=== PATIENT | female | born 1975 | race Caucasian/White ===

== ENCOUNTER 2020-03-06 10:20 | Outpatient (REF) | payer BC, SELFPAY ==
[2020-03-06 14:45] LABS: Alanine Aminotransferase 12 U/L (0-31); Anion Gap 15 (12-20); Aspartate Amino Transferase 19 U/L (5-31); Blood Urea Nitrogen 18 mg/dL (9-16); Carbon Dioxide 24 mmol/L (22-29); Chloride 106 mmol/L (96-108); Estimated Glomerular Filt Rate > 60; Sodium 140 mmol/L (135-145)
== END 2020-03-06 10:21 | disposition home or self-care (01) ==
LOC: HO.10HDL 10:20
PROVIDERS: Visit Provider Family Medicine
DX: I10 Essential (primary) hypertension (principal); R79.89 Other specified abnormal findings of blood chemistry; L72.0 Epidermal cyst
CPT/HCPCS: 11422; 36415; 80051; 82565; 84450; 84460; 84520

== ENCOUNTER 2020-03-07 14:26 | Outpatient (REF) | payer BC, SELFPAY | END 2020-03-07 14:27 | disposition home or self-care (01) | LOC: HO.LAB 14:26 | PROVIDERS: Visit Provider Surgery | DX: L72.0 Epidermal cyst (principal) | CPT/HCPCS: 88304 ==

== ENCOUNTER → 2020-03-19 13:46 | Outpatient (BNVA) | payer BC, SELFPAY | PROVIDERS: PCP Family Medicine; Visit Provider Surgery ==

== ENCOUNTER 2020-08-01 07:39 | Outpatient (REF) | payer BC, SELFPAY ==
[2020-08-01 12:09] LABS: Free T4 (Free Thyroxine) 0.94 ng/dL (0.71-1.85); Thyroid Stimulating Hormone 23.77 uIU/mL (0.32-4.0)
== END 2020-08-01 07:40 | disposition home or self-care (01) ==
LOC: HO.HMGCLDS 07:39
PROVIDERS: PCP Family Medicine; Visit Provider Family Medicine
DX: E03.9 Hypothyroidism, unspecified (principal)
CPT/HCPCS: 36415; 84439; 84443

== ENCOUNTER 2020-10-25 06:46 | Emergency (ER) | payer BC, SELFPAY ==
[2020-10-25 07:29] VITALS: PULSE 80; RESP 18; TEMP 36.6; O2SAT 99; BMI 35.8
[2020-10-25 08:00] LABS: COVID-19 Test Negative (Negative)
--- NOTE | 2020-10-25 08:04 | ED.SKABFB ---
HPI - Skin/Abscess/Foreign Bdy General Chief complaint: Skin/Abscess/Foreign Body Stated complaint: Rash/Chest discomfort/Wants covid test Time Seen by Provider: 10/25/20 07:54 Source: patient Mode of arrival: ambulatory Limitations: no limitations History of Present Illness HPI narrative: Patient comes to the emergency room complaining of a rash in her upper back, few dots of the rash in the left side of the breast, and painful lump in her armpit. Patient states the painful rash has been there for 2 days. Patient states that before the rash appeared, she had a strange sensation in her skin, felt kind of numb and itchy. Patient denies having fever or chills Related Data Home Medications Medication Instructions Recorded Confirmed dicyclomine 10 mg capsule [id number] mg PO QID PRN 03/06/20 loperamide 2 mg capsule (Imodium 2 mg PO QID PRN 03/06/20 A-D) omeprazole 40 mg capsule,delayed 40 mg PO BID 03/06/20 release sertraline 100 mg tablet 100 mg PO DAILY 03/06/20 zolpidem 10 mg tablet 10 mg PO BEDTIME PRN 03/06/20 levothyroxine 137 mcg tablet 112 mcg PO tab 03/19/20 03/19/20 Previous Rx's Medication Instructions Recorded ondansetron 4 mg disintegrating 4 mg PO Q6H PRN #20 tab 09/01/20 tablet gabapentin 100 mg capsule 100 mg PO TID PRN #10 cap 10/25/20 valacyclovir 500 mg tablet 500 mg PO TID 7 Days #21 tab 10/25/20 Allergies Allergy/AdvReac Type Severity Reaction Status Date / Time oxycodone [From PERCOCET] Allergy Unknown ITCHING Verified 03/19/20 13:53 Review of Systems Review of Systems: Constitutional : No Weight loss, No Fever, No Chills, No Night Sweats, No Fatigue, No Malaise ENT/Mouth : No Hearing loss, No Ear Pain, No Nasal Congestion, No Sinus Pain, No Hoarseness, No sore throat, No Rhinorrhea, No Swallowing Difficulty Eyes: No Eye Pain, No Swelling, No Redness, No Foreign Body, No Discharge, No Vision Changes Cardiovascular : No Chest Pain, No SOB, No Dyspnea on Exertion, No Orthopnea, No Edema, No Palpitations Respiratory : No Cough, No Sputum, No Wheezing, No Smoke Exposure, No Dyspnea Gastrointestinal : No Nausea, No Vomiting, No Diarrhea, No Constipation, No abdominal Pain, No Hematochezia, No Melena Genitourinary : no irregular bleeding, No Dysuria, No Urinary Frequency, No Hematuria, No Urinary Incontinence, No Urgency, No Flank Pain, No Urinary Flow Changes, No Hesitancy Musculoskeletal : No joint pain, No Myalgias, No Joint Swelling Skin : Painful rash in upper back left side and a few dots on the breast on the left side Neuro : No Weakness, No Numbness, No Paresthesias, No Loss of Consciousness, No Dizziness, No Headache Psych : No Anxiety/Panic, No Depression, No SI/HI/AH/VH, No Social Issues, Heme/Lymph: No Bruising, No Bleeding, painful lymphadenopathy in left axilla Endocrine : No Polyuria, No Polydipsia, No Temperature Intolerance PMFSH Past Medical History Medical History Epidermal cyst Surgical History Gastric bypass status for obesity History of cholecystectomy History of hysterectomy Family History Family History Paternal Grandfather History of colon cancer Maternal Grandmother History of breast cancer Family/Other History of breast cancer Social History Social History Alcohol intake: never Advance Directives: No Advance Directives Information Provided: No Physical Exam Vital Signs: Vital Signs: Last Vital Signs Temp 98 F 10/25/20 07:29 Pulse 80 10/25/20 07:29 Resp 18 10/25/20 07:29 Pulse Ox 99 10/25/20 07:29 Body Mass Index 35.8 Const: Other: Appearance: Alert. Oriented X3. No acute distress. Eyes: Pupils equal, round and reactive to light. ENT: Pharynx normal. Neck: Normal inspection. Neck supple. No lymph nodes noted. No crepitus CVS: Normal heart rate and rhythm. Pulses normal. Normal S1 and S2 Respiratory: No respiratory distress. Breath sounds normal. No Wheezing. No rales Abdomen: Soft and nontender. No rigidity. No distention. good BS x4 Skin: Skin warm and dry. Patient has an erythematous, borderline fascicular rash in clusters and the upper back on the left side and some small vesicles over the left breast Extremities: No lower extremity edema. No lower extremity edema. No Lacerations. No Rash Neuro: Oriented X 3. No motor deficit. No sensory deficit. Moving all extermities. No slurred speech. Course Course Course Narrative: COVID test is pending. The Patient has left-sided axillary lymphadenopathy, is likely that the patient has a viral exanthem, erythema multiforme versus shingles. Given the patient's history of how the rash progressed, she will be treated for shingles. MDM - Skin/Abscess/Foreign Bdy Lab Data Labs: Lab Results 10/25/20 Range/Units 07:35 COVID-19 ([facility]) Negative (Negative) COVID-19 Clin Com See Note Discharge Plan Discharge Clinical Impression: Shingles Patient Disposition: Home, Self-Care Instructions: Shingles (ED) Additional Instructions: Please follow-up with your primary care physician tomorrow. If you have any worsening or new symptoms, please return to the emergency room or call 911 Prescriptions: New valacyclovir 500 mg tablet 500 mg PO TID 7 Days Qty: 21 RF: 0 gabapentin 100 mg capsule 100 mg PO TID PRN (Reason: pain) Qty: 10 RF: 0 No Action ondansetron 4 mg tablet,disintegrating 4 mg PO Q6H PRN (Reason: nausea and vomiting) Qty: 20 RF: 0 loperamide [Imodium A-D] 2 mg capsule 2 mg PO QID PRNRF: 0 zolpidem 10 mg tablet 10 mg PO BEDTIME PRNRF: 0 omeprazole 40 mg capsule,delayed release(DR/EC) 40 mg PO BID RF: 0 sertraline 100 mg tablet 100 mg PO DAILY RF: 0 dicyclomine 10 mg capsule [id number] mg PO QID PRN (Reason: cramps) RF: 0 levothyroxine 137 mcg tablet 112 mcg PO RF: 0 Stand Alone Forms: Work/School Release
== END 2020-10-25 08:25 | disposition home or self-care (01) ==
PROVIDERS: Emergency Provider Emergency Medicine; PCP Family Medicine
DX: B02.9 Zoster without complications (principal); Z20.822 Contact with and (suspected) exposure to COVID-19
CPT/HCPCS: 36415; 87635; 99283

== ENCOUNTER 2021-02-19 17:08 | Emergency (ER) | payer BC, SELFPAY ==
[2021-02-19 17:18] VITALS: BP 144/82; PULSE 98; RESP 18; TEMP 36.5; O2SAT 96; BMI 37.1
[2021-02-19 18:01] LABS: Appearance Urine CLEAR; Color Urine YELLOW; Glucose Urine UA NEG (NEG); Leukocyte Esterase Urine NEG (NEG); Nitrite Urine NEG (NEG); PH 5.5 (5.0-8.0); Specific Gravity - Urine >= 1.030 (1.005-1.025); Urine Blood NEG (NEG); Urine Ketones NEG (NEG); Urine Protein NEG (NEG-TRACE)
[2021-02-19 18:05] LABS: UPreg QC Valid YES; Urine Pregnancy NEGATIVE (NEGATIVE)
[2021-02-19 18:09] LABS: Bacteria Urine TRACE /LPF; Mucus Urine 1+ /LPF; RBC Urine 0-2 /HPF (0); Squamous Epithelial Cell Urine TRACE /LPF; WBC Urine 0-2 /HPF (0-4)
[2021-02-19 18:10] LABS: Calcium Oxalate Crystals Urine TRACE /LPF
== END 2021-02-19 23:48 | disposition left against medical advice (07) ==
PROVIDERS: Emergency Provider Emergency Medicine; PCP Family Medicine
DX: R10.9 Unspecified abdominal pain (principal); R11.2 Nausea with vomiting, unspecified
CPT/HCPCS: 81001; 81025; 99283

== ENCOUNTER 2021-05-13 08:30 | Outpatient (REF) | payer BC, SELFPAY ==
[2021-05-13 11:33] LABS: Appearance Urine HAZY; Color Urine YELLOW; Glucose Urine UA NEG (NEG); Leukocyte Esterase Urine NEG (NEG); Nitrite Urine NEG (NEG); PH 5.5 (5.0-8.0); Specific Gravity - Urine >= 1.030 (1.005-1.025); Urine Blood TRACE (NEG); Urine Ketones 5 MG/DL (NEG); Urine Protein NEG (NEG-TRACE)
[2021-05-13 11:51] LABS: Amorphous Sediment Urine 2+ /LPF; Mucus Urine 4+ /LPF; Squamous Epithelial Cell Urine TRACE /LPF; WBC Urine 0 /HPF (0-4)
[2021-05-13 11:58] LABS: Hematocrit 41.7 % (37.0-47.0); Hemoglobin 13.1 g/dl (12.0-16.0); Mean Corpuscular HGB Conc 31.4 g/dl (31.0-35.0); Mean Corpuscular Hemoglobin 29.8 pg (27.0-33.0); Mean Corpuscular Volume 94.8 fL (80.0-98.0); Mean Platelet Volume 9.2 fL (9.4-12.3); Platelet Count 368 X10*3/uL (160-400); Red Cell Distribution Width 13.2 % (11.0-16.0)
[2021-05-13 12:54] LABS: TSH reflex Free T4 1.26 uIU/mL (0.32-4.0)
[2021-05-13 13:22] LABS: Alanine Aminotransferase 11 U/L (0-31); Albumin Level 4.5 g/dL (3.5-5.0); Alkaline Phosphatase 70 U/L (39-117); Anion Gap 14 (12-20); Aspartate Amino Transferase 11 U/L (5-31); Bilirubin Total 0.2 mg/dL (0.0-1.0); Blood Urea Nitrogen 15 mg/dL (9-16); Calcium 9.7 mg/dL (8.4-10.2); Carbon Dioxide 26 mmol/L (22-29); Chloride 107 mmol/L (96-108); Cholesterol 181 mg/dL; Estimated Glomerular Filt Rate > 60; Glucose Fasting 91 mg/dL (60-99); HDL Cholesterol 44 mg/dL; LDL Cholesterol Calculated 111 mg/dl; Potassium 4.8 mmol/L (3.3-5.1); Sodium 142 mmol/L (135-145); Total Protein 7.6 g/dL (6.5-8.0); Triglycerides 131 mg/dL
== END 2021-05-13 08:31 | disposition home or self-care (01) ==
LOC: HO.HMGCLDS 08:30
PROVIDERS: PCP Internal Medicine; Visit Provider Internal Medicine
DX: Z00.00 Encounter for general adult medical examination without abnormal findings (principal); E03.9 Hypothyroidism, unspecified
CPT/HCPCS: 36415; 80053; 80061; 81001; 84443; 85027

== ENCOUNTER 2021-11-05 06:13 | Day surgery (SDC) | payer BC, SELFPAY ==
[2021-11-02 10:02] VITALS: BMI 37.8
[2021-11-05 06:24] VITALS: BP 130/76; PULSE 67; RESP 16; TEMP 36.2; O2SAT 98; BMI 37.8
[2021-11-05 06:25] VITALS: BMI 37.8
[2021-11-05] MEDS: Lactated Ringers 1,000 ML 50 ML IVCONT (07:02)
--- NOTE | 2021-11-05 07:21 | P.CONAN_ITS ---
HPI - Anesthesia Eval Consult details Narrative: 46 F for EGD PMFSH Active Problems Active Problems: All Active Problems (Updated 09/25/21 @ 10:59 by Corry Perez MD) Insomnia (Acute) Hypothyroid (Acute) Annual physical exam (Acute) Hx of mammogram (Acute) Normal pelvic exam (Acute) DJD (degenerative joint disease), lumbar (Acute) GERD (gastroesophageal reflux disease) (Acute) Overweight (Acute) Hx of colonoscopy (Acute) Abdominal pain (Acute) Epidermal cyst (Acute) Past Medical History Medical History Annual physical exam Anxiety Depression DJD (degenerative joint disease), lumbar Epidermal cyst GERD (gastroesophageal reflux disease) Hx of mammogram Hypothyroid IBS (irritable bowel syndrome) Insomnia Normal pelvic exam Overweight Functional capacity: independent ambulation Family History Family History (Updated 09/25/21 @ 10:01 by Jimena Velazquez [facility]) Paternal Grandfather History of colon cancer Maternal Grandmother History of breast cancer Mental health disorder Family/Other History of breast cancer Sister Substance use disorder Mental health disorder Maternal Aunt Substance use disorder Maternal Uncle Substance use disorder Paternal Uncle Substance use disorder Maternal Uncle Substance use disorder Mother Mental health disorder Brother Mental health disorder Family history of problems with anesthesia: No Surgical History Surgical History Gastric bypass status for obesity History of cholecystectomy History of hysterectomy Hx of colonoscopy History of Problems with Anesthesia: No Social History Social History (Updated 05/13/21 @ 08:44 by Corry Perez MD) Housing: Apartment Housing Other:: , 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, 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 [employer] Alcohol intake: never Patient Tobacco Use Status: Never used Tobacco e-Cigarette/Vaping Use: Never Used Use of substances other than those prescribed or required for medical reasons: No Are you DNR?: No Advance Directives: No Advance Directives Information Provided: Yes Current occupational status: employed Cognitive needs: No Hearing needs: No Vision needs: No Meds Allergies Allergy/AdvReac Type Severity Reaction Status Date / Time oxycodone [From PERCOCET] Allergy Unknown ITCHING Verified 09/25/21 09:58 Active Medications: Current Medications Lactated Ringer's (Lr) 1,000 mls @ 50 mls/hr IVCONT .Q20H JOHN Last Admin: 11/05/21 07:02 Dose: 50 mls/hr Home Medications Medication Instructions Recorded Confirmed Last Taken Type loperamide 2 mg capsule (Imodium 2 mg PO QID PRN 03/06/20 09/25/21 Unknown History A-D) omeprazole 40 mg capsule,delayed 40 mg PO BID 03/06/20 09/25/21 Unknown History release dicyclomine 10 mg capsule 20 mg PO QID PRN cramps 05/13/21 09/25/21 Unknown History levothyroxine 125 mcg capsule 125 mcg PO DAILY 05/13/21 09/25/21 11/05/21 History Exam Exam Date and Time: November 05, 2021720 Height,Weight and Vital Signs: Height 5 ft 2 in Weight 93.894 kg Last Vital Signs Temp 97.2 F 11/05/21 06:24 Pulse 67 11/05/21 06:24 Resp 16 11/05/21 06:24 BP 130/76 11/05/21 06:24 Pulse Ox 98 11/05/21 06:24 O2 Del Method 11/05/21 06:24 Airway Mallampati Class: II TM Dist: >3cm Neck ROM: Full Loose/Missing/Broken Teeth: Yes (Fillings ) Heart: S1,S2 Lungs: b/l breath sounds Assessment and Plan Assessment Anesthesia Assessment: Anesthesia Plan Discussed and Chart Reviewed Final Anesthetic Review Family History of Problems with Anesthesia: No History of Problems with Anesthesia: No NPO: Yes ASA Class: II Final Preanesthetic Review: Meds/Allgs Chart Reviewed, Consent Obtained/Reviewed and Anes Risks/Benef Reviewed Patient Risk: Intermediate Procedure Risk: Intermediate Anesthetic Plan Anesthetic Plan: MAC: Disposition: Standard PACU
[2021-11-05 07:53] VITALS: BP 112/64; PULSE 68; RESP 16; TEMP 37; O2SAT 98
--- NOTE | 2021-11-05 08:00 | PM.OP ---
Brief Operative Note Date of Service: 11/05/21 Pre-op diagnosis: GERD Post-op diagnosis: other (Same, Minimal hiatal hernia) Procedure: EGD with biopsies Surgeon: Aravind Schwartz Anesthesia: MAC Was an Environmental Monitoring Technician used for this Procedure?: No Estimated blood loss (mL): 2.0 Pathology: other (A. EG Junction at 35cm) Condition: stable Disposition: PACU
[2021-11-05 08:08] VITALS: BP 112/64; PULSE 68; RESP 16; TEMP 37; O2SAT 97
--- NOTE | 2021-11-05 08:59 | OP_ITS ---
SURGEON: Aravind Schwartz MD INDICATIONS: The patient presents for evaluation of chronic gastroesophageal reflux. Full consent has been obtained from her for this, including risks of bleeding and perforation. PREOPERATIVE DIAGNOSIS: Gastroesophageal reflux. POSTOPERATIVE DIAGNOSIS: PROCEDURE PERFORMED: ESTIMATED BLOOD LOSS: COMPLICATIONS: ANESTHESIA: Monitored anesthesia care. ASSISTANTS: SPECIMENS: PROCEDURE: Esophagogastroduodenoscopy with biopsies. POSTOPERATIVE DIAGNOSES: Gastroesophageal reflux, minimal hiatal hernia, minimal changes of reflux. DESCRIPTION OF PROCEDURE: The patient was placed in the left lateral decubitus position. The Olympus video gastroscope was passed in the posterior oropharynx and upper esophagus under direct vision. The scope was passed slowly to the distal esophagus. The gastroesophageal junction appeared at 34 cm. There was some very minimal irregularity, but no evidence of esophagitis nor any definitive evidence of Shah mucosa. There did appear to be a minimal hiatal hernia as well. The scope easily entered into the stomach. The scope was advanced to the pylorus and the duodenum was cannulated to the descending portion. The duodenum including the bulb appeared normal without mass or ulceration. The scope was withdrawn back to the stomach. The gastric antrum and body appeared normal. However, there was evidence of a scar along the greater curvature consistent with her previous sleeve gastrectomy. The scope was then withdrawn back into the esophagus. Biopsies were obtained at the EG junction at 34 cm. Proximal to this, the esophageal mucosa appeared normal. The scope was withdrawn from the patient. She tolerated the procedure well and was returned to the recovery area in stable condition. IMPRESSION: Minimal hiatal hernia and changes of gastroesophageal reflux. PLAN: The results of the biopsies will be checked. She does report that she has been using the omeprazole 40 mg twice a day on a regular basis with some relief of reflux. However, she still experiences some symptoms. She will continue this regimen. She will follow up with Dr. Calvo to discuss possible gastric bypass surgery. She will be seen in followup by myself as well. This has been discussed with her . MD HATTIE Celis/ALLAN / [id number] MTDD
== END 2021-11-05 08:30 | disposition home or self-care (01) ==
PROVIDERS: PCP Internal Medicine; Visit Provider Internal Medicine
PROC: 0DJ08ZZ Inspection of Upper Intestinal Tract, Via Natural or Artificial Opening Endoscopic (ICD-10-PCS; CPT 43235; principal; 2021-11-05 07:30)
DX: K21.9 Gastro-esophageal reflux disease without esophagitis (principal); R12 Heartburn; K44.9 Diaphragmatic hernia without obstruction or gangrene; K58.0 Irritable bowel syndrome with diarrhea; Z79.899 Other long term (current) drug therapy; Z88.8 Allergy status to other drugs, medicaments and biological substances; Z98.84 Bariatric surgery status
CPT/HCPCS: 43239; 88305

== ENCOUNTER 2021-12-24 07:09 | Day surgery (SDC) | payer BC, SELFPAY ==
--- NOTE | 2021-12-23 08:44 | P.CONAN_ITS ---
Documented by User: Sally Phillips NP 12/23/21 08:45 HPI - Anesthesia Eval Consult details Narrative: 46yo F for Upper Endoscopy and Colonoscopy s/p EGD with MAC 10/2021 [facility] Active Problems Active Problems: All Active Problems (Updated 12/18/21 @ 10:14 by Shavon Medeiros RN) Abdominal pain (Acute) Annual physical exam (Acute) Insomnia (Acute) Hypothyroid (Acute) Hx of mammogram (Acute) Normal pelvic exam (Acute) DJD (degenerative joint disease), lumbar (Acute) GERD (gastroesophageal reflux disease) (Acute) Overweight (Acute) Hx of colonoscopy (Acute) Epidermal cyst (Acute) Past Medical History Medical History Anxiety Depression DJD (degenerative joint disease), lumbar Epidermal cyst GERD (gastroesophageal reflux disease) Heart murmur History of shingles Hx of mammogram Hypothyroid IBS (irritable bowel syndrome) Insomnia Normal pelvic exam Overweight Family History Family History Paternal Grandfather History of colon cancer Maternal Grandmother History of breast cancer Mental health disorder Family/Other History of breast cancer Sister Substance use disorder Mental health disorder Maternal Aunt Substance use disorder Maternal Uncle Substance use disorder Paternal Uncle Substance use disorder Maternal Uncle Substance use disorder Mother Mental health disorder Brother Mental health disorder Family history of problems with anesthesia: No Surgical History Surgical History Gastric bypass status for obesity History of cholecystectomy History of esophagogastroduodenoscopy (EGD) History of hysterectomy Hx of colonoscopy History of Problems with Anesthesia: No Social History Social History Housing: Apartment Housing Other:: , 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, 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 Alcohol intake: never Patient Tobacco Use Status: Never used Tobacco e-Cigarette/Vaping Use: Never Used Use of substances other than those prescribed or required for medical reasons: No Are you DNR?: No Advance Directives: No Advance Directives Information Provided: Yes Current occupational status: employed Cognitive needs: No Hearing needs: No Vision needs: No Meds Allergies Allergy/AdvReac Type Severity Reaction Status Date / Time oxycodone [From PERCOCET] Allergy Unknown ITCHING Verified 12/18/21 10:19 Home Medications Medication Instructions Recorded Confirmed Last Taken Type loperamide 2 mg capsule (Imodium 2 mg PO QID PRN Diarrhea 03/06/20 12/24/21 Unknown History A-D) omeprazole 40 mg capsule,delayed 40 mg PO BID 03/06/20 12/18/21 Unknown History release dicyclomine 10 mg capsule 20 mg PO QID PRN cramps 05/13/21 12/18/21 Unknown History levothyroxine 125 mcg capsule 125 mcg PO DAILY 05/13/21 12/18/21 11/05/21 History Exam Exam Date and Time: December 23, 2021 0844 Assessment and Plan Assessment Anesthesia Assessment: Chart Reviewed Final Anesthetic Review Family History of Problems with Anesthesia: No History of Problems with Anesthesia: No Documented by User: Kristin Watts MD 12/24/21 08:47 HPI - Anesthesia Eval Consult details Narrative: 46yo F for Upper Endoscopy s/p EGD with MAC 10/2021 [facility] Active Problems Active Problems: All Active Problems (Updated 12/18/21 @ 10:14 by Shavon Medeiros RN) Abdominal pain (Acute) Annual physical exam (Acute) Insomnia (Acute) Hypothyroid (Acute) Hx of mammogram (Acute) Normal pelvic exam (Acute) DJD (degenerative joint disease), lumbar (Acute) GERD (gastroesophageal reflux disease) (Acute) Overweight (Acute) BMI 39 Hx of colonoscopy (Acute) Epidermal cyst (Acute) JULIETH- not using CPAP. Unable to tolerate Past Medical History Medical History Anxiety Depression DJD (degenerative joint disease), lumbar Epidermal cyst GERD (gastroesophageal reflux disease) Heart murmur History of shingles Hx of mammogram Hypothyroid IBS (irritable bowel syndrome) Insomnia Normal pelvic exam Overweight Family History Family History Paternal Grandfather History of colon cancer Maternal Grandmother History of breast cancer Mental health disorder Family/Other History of breast cancer Sister Substance use disorder Mental health disorder Maternal Aunt Substance use disorder Maternal Uncle Substance use disorder Paternal Uncle Substance use disorder Maternal Uncle Substance use disorder Mother Mental health disorder Brother Mental health disorder Surgical History Surgical History Gastric bypass status for obesity History of cholecystectomy History of esophagogastroduodenoscopy (EGD) History of hysterectomy Hx of colonoscopy Social History Social History Housing: Apartment Housing 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:: , 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, 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 [place] Alcohol intake: never Patient Tobacco Use Status: Never used Tobacco e-Cigarette/Vaping Use: Never Used Use of substances other than those prescribed or required for medical reasons: No Are you DNR?: No Advance Directives: No Advance Directives Information Provided: Yes Current occupational status: employed Cognitive needs: No Hearing needs: No Vision needs: No Meds Allergies Allergy/AdvReac Type Severity Reaction Status Date / Time oxycodone [From PERCOCET] Allergy Unknown ITCHING Verified 12/18/21 10:19 Home Medications Medication Instructions Recorded Confirmed Last Taken Type loperamide 2 mg capsule (Imodium 2 mg PO QID PRN Diarrhea 03/06/20 12/24/21 Unknown History A-D) omeprazole 40 mg capsule,delayed 40 mg PO BID 03/06/20 12/18/21 Unknown History release dicyclomine 10 mg capsule 20 mg PO QID PRN cramps 05/13/21 12/18/21 Unknown History levothyroxine 125 mcg capsule 125 mcg PO DAILY 05/13/21 12/18/21 11/05/21 History Exam Height,Weight and Vital Signs: Height 5 ft 2 in Weight 96.615 kg Vital Signs Temp Pulse Resp BP Pulse Ox O2 Del Method 12/24/21 07:45 96.9 F 63 16 127/69 97 Room Air Airway Mallampati Class: II TM Dist: >3cm Neck ROM: Full Loose/Missing/Broken Teeth: No (Denies broken, missing,loose teeth) Heart: RRR Lungs: CTAB Assessment and Plan Assessment Anesthesia Assessment: Anesthesia Plan Discussed Final Anesthetic Review NPO: Yes ASA Class: III Final Preanesthetic Review: No Changes in Pt Med Stat, Meds/Allgs Chart Reviewed, Consent Obtained/Reviewed and Anes Risks/Benef Reviewed Patient Risk: Intermediate Procedure Risk: Low Assessment/Block/Sedation in SS: Assess/Block/Sedation-SS Anesthetic Plan Anesthetic Plan: MAC: Disposition: Standard PACU
[2021-12-24 07:36] VITALS: BMI 38.9
[2021-12-24 07:45] VITALS: BP 127/69; PULSE 63; RESP 16; TEMP 36.1; O2SAT 97
[2021-12-24] MEDS: Lactated Ringers 1,000 ML 100 ML IVCONT (08:01)
--- NOTE | 2021-12-24 08:36 | P.HPSUR_ITS ---
Pre-Procedural Eval Section A Date of Service: 12/24/21 Section B Chief Complaint: reflux Details of Present Illness: hx of regurgitation and reflux, high dose PPI not effective. Relevant Family History (Specify if Yes): Yes Relevant Social History: None Present Medications: see Short Stay Collaborative assessment Medical History: Significant History (Anxiety Depression DJD (degenerative joint disease), lumbar Epidermal cyst GERD (gastroesophageal reflux disease) Heart murmur History of shingles Hx of mammogram Hypothyroid IBS (irritable bowel syndrome) Insomnia Normal pelvic exam Overweight) History of Previous Operations: Relevant previous surgery/procedure and date(s) (sleeve gastrectomy, History of cholecystectomy History of esophagogastroduod enoscopy (EGD) History of hysterectomy Hx of colonoscopy) Allergies: \']llergies Allergy/AdvReac Type Severity Reaction Status Date / Time oxycodone From PERCOCET Allergy Unknown ITCHING Verified 12/18/21 10:19 Review of Systems Sugical H&P ROS: Negative: Constitution, Cardiovascular, Respiratory, Neurological, Psychiatric, Hem-Onc, Allergic/Immunologic, Gastrointestinal, Genitourinary, Musculoskeletal, Integumentary, Endocrine and Eyes/Ears/Nose/Throat Exam Surgical H&P Exam: Normal: HEENT, Normal: Heart, Normal: Lungs, Normal: Extremities, Normal: Abdomen, Normal: Skin and Normal: Neurological Plan Diagnosis/Plan: Unchanged I have reviewed the history and physical and performed a pertinent physical examination on my patient. No changes have occurred unless specified. EGD with ARENAS on PPI
--- NOTE | 2021-12-24 08:51 | W.PM.OPN ---
Operative Note Operative Note Date of Service: 12/24/21 Narrative: Procedure Description: EGD Indication: regurgitation and GERD Anesthesia: MAC FLEXIBLE TRANSORAL UPPER GASTROINTESTINAL ENDOSCOPY UPPER ENDOSCOPY Consent: Indications for the procedure and potential complications of bleeding, perforation, reaction to medications and missed diagnosis were discussed with the patient and informed consent was obtained. Instrument: Olympus GIF H 190 J mid size upper endoscope Monitoring: Vital signs and clinical assessment, continuous EKG monitoring, Pulse oximetry, Carbon Dioxide monitoring and blood pressure monitoring were done throughout the procedure. Procedure: The patient was placed in the left lateral decubitis position and pre-procedure medications were administered and a bite block was placed. The endoscope was inserted into the mouth and advanced under direct vision to the third part of duodenum. A careful inspection was made as the upper endoscope was withdrawn including a retroflexed examination of the proximal stomach; Findings and interventions are described below. Findings: Larynx:normal Esophagus: GE junction at 36 cm, diaphragm hiatus at 36 cm, mild esophagitis with possible small focal area of barretts, bx taken. Arenas capsule placed at 30 cm with endoscopic confirmation of placement Stomach: Sleeve anatomy noted... Grade 3 flap valve on retroflexed examination of the cardia with very lax LES. Duodenum: Normal bulb and descending duodenum, Intervention: Biopsies as noted above and ARENAS placement Impression/Findings: GERD, esophagitis, lax LES PLAN: await results of ARENAS on PPI may benefit from ARAT with hybrid APC
[2021-12-24 08:55] VITALS: BP 109/57; PULSE 63; RESP 16; TEMP 36.4; O2SAT 96
[2021-12-24 09:10] VITALS: BP 112/60; PULSE 68; RESP 16; TEMP 36.4; O2SAT 99
[2021-12-24 09:25] VITALS: BP 125/57; PULSE 63; RESP 16; TEMP 36.3; O2SAT 99
== END 2021-12-24 09:44 | disposition home or self-care (01) ==
PROVIDERS: PCP Internal Medicine; Visit Provider Internal Medicine Gastroenterology
PROC: (CPT 43239; principal; 2021-12-24 08:30)
DX: K21.9 Gastro-esophageal reflux disease without esophagitis (principal); K20.80 Other esophagitis without bleeding; K22.4 Dyskinesia of esophagus; K44.9 Diaphragmatic hernia without obstruction or gangrene; K58.9 Irritable bowel syndrome, unspecified; E03.9 Hypothyroidism, unspecified; R01.1 Cardiac murmur, unspecified; Z79.899 Other long term (current) drug therapy; Z88.8 Allergy status to other drugs, medicaments and biological substances; Z98.84 Bariatric surgery status; Z90.3 Acquired absence of stomach [part of]; Z90.49 Acquired absence of other specified parts of digestive tract
CPT/HCPCS: 43239; 88305

== ENCOUNTER 2022-05-07 10:06 | Outpatient (REF) | payer BC, SELFPAY ==
[2022-05-07 11:13] LABS: MANUAL DIFF FLAG NO
[2022-05-07 11:27] LABS: Basophils Percent Auto 0.5 % (0-2); Eosinophils Absolute Auto 0.3 X10*3/uL (0.0-0.4); Eosinophils Percent Auto 4.7 % (0-4); Hematocrit 38.5 % (37.0-47.0); Hemoglobin 12.6 g/dl (12.0-16.0); Imm Gran Abs Auto 0.01 X10*3/uL (0.00-0.03); Imm Gran Pct Auto 0.2 % (0.0-0.4); Mean Corpuscular HGB Conc 32.7 g/dl (31.0-35.0); Mean Corpuscular Hemoglobin 30.6 pg (27.0-33.0); Mean Corpuscular Volume 93.4 fL (80.0-98.0); Mean Platelet Volume 9.1 fL (9.4-12.3); Monocytes Absolute Auto 0.4 X10*3/uL (0.1-1.2); Monocytes Percent Auto 7.2 % (2-11); Neutrophils Absolute Auto 2.2 x10*3/uL (2.0-8.3); Neutrophils Percent Auto 37.4 % (45-73); Platelet Count 341 X10*3/uL (160-400); Red Blood Count 4.12 X10*6/uL (4.20-5.50); Red Cell Distribution Width 15.7 % (11.0-16.0)
[2022-05-07 12:02] LABS: Alanine Aminotransferase 16 U/L (0-31); Albumin Level 4.3 g/dL (3.5-5.0); Alkaline Phosphatase 74 U/L (39-117); Anion Gap 14 (12-20); Aspartate Amino Transferase 19 U/L (5-31); Bilirubin Total 0.5 mg/dL (0.0-1.0); Blood Urea Nitrogen 10 mg/dL (9-16); Calcium 9.2 mg/dL (8.4-10.2); Carbon Dioxide 26 mmol/L (22-29); Chloride 107 mmol/L (96-108); Cholesterol 131 mg/dL; Estimated Glomerular Filt Rate > 60; Glucose Fasting 98 mg/dL (60-99); HDL Cholesterol 33 mg/dL; LDL Cholesterol Calculated 76 mg/dl; Potassium 4.1 mmol/L (3.3-5.1); Sodium 143 mmol/L (135-145); TSH reflex Free T4 1.81 uIU/mL (0.32-4.0); Total Protein 7.1 g/dL (6.5-8.0); Triglycerides 113 mg/dL; Vitamin D 25-OH Total 40.3 ng/mL (>30)
== END 2022-05-07 10:07 | disposition home or self-care (01) ==
LOC: HO.HMGCLDS 10:06
PROVIDERS: PCP Internal Medicine; Visit Provider Internal Medicine
DX: Z00.00 Encounter for general adult medical examination without abnormal findings (principal); E03.9 Hypothyroidism, unspecified
CPT/HCPCS: 36415; 80053; 80061; 82306; 84443; 85025

== ENCOUNTER 2022-11-02 08:58 | Outpatient (AMB) | payer BC, SELFPAY ==
--- NOTE | 2022-11-02 09:14 | MHC.PC.OV ---
Vital Signs 11/02/22 09:15 Height 5 ft 2 in Weight 179 lb BMI 32.7 BP 118/74 Blood Pressure Location Lt brachial Position Sitting Pulse 66 Pulse Source Pulse Oximeter Pulse Oximetry (%) 98 Oxygen Delivery Method Room Air Intake Visit Reasons: Physical Exam Intake Note: Pt is here today for PE. Pt states that she had full hysterectomy. Allergies oxycodone [From PERCOCET] Allergy (Unknown, Verified 11/02/22 09:18) ITCHING Medication List - Last Reconciled 11/02/22 by Corry Perez MD gabapentin 600 mg (2 x 300 mg) PO BID levothyroxine 125 mcg PO DAILY loperamide (Imodium A-D) 2 mg PO QID PRN omeprazole 40 mg PO BID sertraline 100 mg PO DAILY Tobacco use date assessed: 11/02/22 Dental Screening Dental Screen Date: 11/02/22 Did you have a dental visit in the last 12 months?: Yes Did you have a dental problem in the last 6 months where you did not have access to dental care?: No Was dental information given to patient?: Patient has dentist HPI Physical Exam HPI Details Pt presents for PE. Pt c/o chronic insomnia. Atarax, Trazodne not effective. Pt f/u with [facility] for chronic LBP. PFSH Medical History Heart murmur History of shingles Hypothyroid Hx of mammogram Normal pelvic exam DJD (degenerative joint disease), lumbar GERD (gastroesophageal reflux disease) Overweight Insomnia IBS (irritable bowel syndrome) Anxiety Depression Epidermal cyst Surgical History (Updated 11/02/22 @ 09:44 by Corry Perez MD) H/O gastric bypass History of esophagogastroduodenoscopy (EGD) Hx of colonoscopy Gastric bypass status for obesity History of hysterectomy History of cholecystectomy Family History Paternal Grandfather History of colon cancer Maternal Grandmother History of breast cancer Mental health disorder Family/Other History of breast cancer Sister Substance use disorder Mental health disorder Maternal Aunt Substance use disorder Maternal Uncle Substance use disorder Paternal Uncle Substance use disorder Maternal Uncle Substance use disorder Mother Mental health disorder Brother Mental health disorder Social History Housing: Apartment Housing Other:: , 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 1. Little interest or pleasure in doing things: several days 2. Feeling down, depressed, or hopeless: several days 3. Trouble falling or staying asleep, or sleeping too much: nearly every day 4. Feeling tired or having little energy: nearly every day 5. Poor appetite or overeating: more than half the days 6. Feeling bad about yourself - or that you are a failure or have let yourself or your family down: not at all 7. Trouble concentrating on things, such as reading the newspaper or watching television: several days 8. Moving or speaking so slowly that other people could have noticed. Or the opposite - being so fidgety or restless that you have been moving around a lot more than usual: not at all 9. Thoughts that you would be better off or of hurting yourself in some way: not at all Total score: 11 Depression Screening Interpretation: Positive [id number] - PHQ-9 Billing: Yes Source: Developed by Drs. Aravind Ding, Yokasta Valdez, Denzel Rivera and colleagues, with an educational og from [employer]. Thrive Questionnaire Date Thrive assessed: 11/02/22 I am a: Patient What is your living situation today?: I have a steady place to live Within the past 12 months, did the food you bought not last and you didn't have the money to get more?: Never true Within the past 12 months, did you worry whether your food would run out before you got money to buy more?: Never true Do you have trouble paying for medicines?: No Do you have trouble getting transportation to medical appointments?: No Do you have trouble paying your heating and electricity bill?: No Do you have trouble taking care of your child, family member or friend?: No Do you have trouble with day-to-day activities such as bathing, preparing meals, shopping, managing finances, etc.?: No Are you currently unemployed and looking for a job?: No Are you interested in more education?: No Please select the resources that you would like help with: None AUDIT C Alcohol Use Questionnaire (AUDIT-C) 1. How often do you have a drink containing alcohol?: Never 3. How often do you have six or more drinks on one occasion?: Never Total Score: 0 DANIELLE-7 AMB Questionnaire DANIELLE-7 Date DANIELLE - 7 assessed: 11/02/22 Feeling nervous, anxious, or on edge: 1 = Several days Not being able to stop or control worryin = Not at all Worrying too much about different things: 1 = Several days Trouble relaxin = More than half the days Being so restless that it is hard to sit still: 1 = Several days Becoming easily annoyed or irritable: 1 = Several days Feeling afraid as if something awful might happen: 0 = Not at all Total DANIELLE-7 score (0-4 normal; 5-9 mild; 10-14 moderate; 15-21 severe): 6 Source: Developed by Drs. Aravind Ding, Yokasta Valdez, Denzel Rivera and colleagues, with an educational og from [employer]. Review of Systems Const All systems reviewed & are unremarkable except as noted in HPI and below Reports no additional complaints Eyes Reports no additional complaints ENT Reports no additional complaints Card Reports no additional complaints Resp Reports no additional complaints GI Reports no additional complaints Reports no additional complaints Physical exam (Primary Care) Vital Signs: Last Vital Signs Pulse 66 11/02/22 09:15 BP 118/74 11/02/22 09:15 Pulse Ox 98 11/02/22 09:15 Oxygen Delivery Method Room Air 11/02/22 09:15 BMI result Body Mass Index 32.7 Tobacco/Smoking Status: Tobacco use Status Tobacco use date assessed 11/02/22 11/02/22 09:24 Patient Tobacco Use Status Never used Tobacco 11/02/22 09:24 e-Cigarette/Vaping Use Never Used 11/02/22 09:14 Depression Screening Interpretation: Positive Thrive Assessment: Date of Thrive Assessment Date Thrive assessed 05/13/21 11/02/22 09:14 Const General: no acute distress HENMT Head: Yes normal to inspection Ears: hearing grossly normal bilaterally Face and sinus: Yes normal facial exam Mouth: Normal oral and palatal mucosa present Throat: Yes posterior oropharynx normal Eyes General: appearance normal, both eyes and all related structures Neck Neck: Yes no lymphadenopathy and Yes supple Resp Effort & Inspection: normal respiratory effort Auscultation: clear to auscultation bilaterally Cardio Rhythm: regular rhythm Heart sounds: S1 normal heart sound present and S2 normal heart sound present GI Inspection: Yes normal to inspection Palpation (GI): Soft to palpation Percussion: Yes normal to percussion Auscultation: normal bowel sounds Assessment and Plan Assessment & Plan (1) Annual physical exam: Code(s): Z00.00 - Encounter for general adult medical examination without abnormal findings Plan: Well-balanced diet regular exercise discussed with the patient. She will schedule mammogram and is due for repeat colonoscopy next year. (2) Hypothyroid: Comment: f/u Dr Cabezas Code(s): E03.9 - Hypothyroidism, unspecified Plan: Continue levothyroxine check TSH level (3) H/O gastric bypass: Comment: Mar 2022 Code(s): Z98.84 - Bariatric surgery status Plan: Continue CBC comprehensive panel B12 level and follow-up with surgeon. Orders: Orders TSH reflex Free T4 Today E03.9 - Hypothyroidism, unspecified, Z00.00 - Encounter for general adult medical examination without abnormal findings, Z98.84 - Bariatric surgery status Complete Blood Count Auto Diff Today E03.9 - Hypothyroidism, unspecified, Z00.00 - Encounter for general adult medical examination without abnormal findings, Z98.84 - Bariatric surgery status Vitamin B12 and Folate Today E03.9 - Hypothyroidism, unspecified, Z00.00 - Encounter for general adult medical examination without abnormal findings, Z98.84 - Bariatric surgery status Comprehensive [place]. Panel Fast Today E03.9 - Hypothyroidism, unspecified, Z00.00 - Encounter for general adult medical examination without abnormal findings, Z98.84 - Bariatric surgery status IRON PROFILE Today Z98.84 - Bariatric surgery status Medications: Discontinued hydroxyzine HCl Discontinued Reason: Doctor's Order 25 mg PO BEDTIME 30 tabs 0RF Coding Level of Care Code Est Pt Prev Care 40-64y(64099) Diagnoses Annual physical exam Z00.00 Hypothyroid E03.9 H/O gastric bypass [id number]
[2022-11-02 09:15] VITALS: BP 118/74; PULSE 66; O2SAT 98; BMI 32.7
== END 2022-11-02 09:44 | disposition home or self-care (01) ==
PROVIDERS: Visit Provider Internal Medicine
DX: Z00.00 Encounter for general adult medical examination without abnormal findings (principal); E03.9 Hypothyroidism, unspecified; Z98.84 Bariatric surgery status
CPT/HCPCS: 99396

== ENCOUNTER 2022-11-02 09:45 | Outpatient (REF) | payer BC, SELFPAY ==
[2022-11-02 13:21] LABS: MANUAL DIFF FLAG NO
[2022-11-02 13:39] LABS: Basophils Absolute Auto 0.1 X10*3/uL (0.0-0.2); Basophils Percent Auto 1.1 % (0-2); Eosinophils Absolute Auto 0.2 X10*3/uL (0.0-0.4); Eosinophils Percent Auto 2.6 % (0-4); Hematocrit 40.1 % (37.0-47.0); Hemoglobin 12.7 g/dl (12.0-16.0); Imm Gran Abs Auto 0.01 X10*3/uL (0.00-0.03); Imm Gran Pct Auto 0.2 % (0.0-0.4); Lymphocytes Percent Auto 45.4 % (20-40); Mean Corpuscular HGB Conc 31.7 g/dl (31.0-35.0); Mean Corpuscular Hemoglobin 31.3 pg (27.0-33.0); Mean Corpuscular Volume 98.8 fL (80.0-98.0); Mean Platelet Volume 9.2 fL (9.4-12.3); Monocytes Absolute Auto 0.4 X10*3/uL (0.1-1.2); Monocytes Percent Auto 6.6 % (2-11); Neutrophils Absolute Auto 2.9 x10*3/uL (2.0-8.3); Neutrophils Percent Auto 44.1 % (45-73); Platelet Count 347 X10*3/uL (160-400); Red Blood Count 4.06 X10*6/uL (4.20-5.50); Red Cell Distribution Width 13.8 % (11.0-16.0); White Blood Count 6.5 X10*3/uL (4.8-10.8)
[2022-11-02 14:34] LABS: Folate 8.5 ng/mL (> or = 4.0); Vitamin B12 461 pg/mL (200-900)
[2022-11-02 14:38] LABS: Alanine Aminotransferase 15 U/L (0-31); Albumin Level 4.1 g/dL (3.5-5.0); Alkaline Phosphatase 75 U/L (39-117); Anion Gap 12 (12-20); Aspartate Amino Transferase 17 U/L (5-31); Bilirubin Total 0.2 mg/dL (0.0-1.0); Blood Urea Nitrogen 17 mg/dL (9-16); Calcium 9.4 mg/dL (8.4-10.2); Carbon Dioxide 29 mmol/L (22-29); Chloride 105 mmol/L (96-108); Estimated Glomerular Filt Rate > 60; Glucose Fasting 79 mg/dL (60-99); Iron 71 mcg/dL (30-160); Percent Iron Saturation 23 % (15-50); Potassium 4.8 mmol/L (3.3-5.1); Sodium 141 mmol/L (135-145); Total Iron Binding Capacity 309 mcg/dL (228-428); Total Protein 7.2 g/dL (6.5-8.0); Unsaturated Iron Binding 238 ug/dL
[2022-11-02 14:47] LABS: TSH reflex Free T4 60.51 uIU/mL (0.32-4.0)
[2022-11-02 16:14] LABS: Free T4 (Free Thyroxine) 0.61 ng/dL (0.71-1.85)
== END 2022-11-02 09:46 | disposition home or self-care (01) ==
LOC: HO.HMGCLDS 09:45
PROVIDERS: PCP Internal Medicine; Visit Provider Internal Medicine
DX: Z00.00 Encounter for general adult medical examination without abnormal findings (principal); E03.9 Hypothyroidism, unspecified; Z98.84 Bariatric surgery status
CPT/HCPCS: 36415; 80053; 82607; 82746; 83540; 84439; 84443; 85025

== ENCOUNTER 2022-12-09 15:04 | Outpatient (AMB) | payer BC, SELFPAY ==
--- NOTE | 2022-12-09 15:06 | AM.OFFWIN_ITS ---
Intake Vital Signs 12/09/22 15:07 Height 5 ft 2 in Weight 179 lb 6 oz BMI 32.8 BP 130/78 Blood Pressure Location Rt brachial Position Sitting Pulse 66 Pulse Source Pulse Oximeter Temp 97.5 F Temp Source Temporal Artery Scan Pulse Oximetry (%) 95 Oxygen Delivery Method Room Air Intake Visit Reasons: EP, UTI? Intake Note: Pt presents to the office today for c/o UTI symptoms. Pt states she has urinary frequency and a slight burning sensation when she urinates which started yesterday. Pt states she started taking OTC AZO yesterday as well. Patient Tobacco Use Status: Never used Tobacco Allergies oxycodone [From PERCOCET] Allergy (Unknown, Verified 12/09/22 15:10) ITCHING HPI HPI Comments History of Present Illness Details 47 yo f w/ increase urinary freq and urg ency x 1 day. Denies fever or new back pain PFSH Medical History Heart murmur History of shingles Hypothyroid Hx of mammogram Normal pelvic exam DJD (degenerative joint disease), lumbar GERD (gastroesophageal reflux disease) Overweight Insomnia IBS (irritable bowel syndrome) Anxiety Depression Epidermal cyst Surgical History H/O gastric bypass History of esophagogastroduodenoscopy (EGD) Hx of colonoscopy Gastric bypass status for obesity History of hysterectomy History of cholecystectomy Family History Paternal Grandfather History of colon cancer Maternal Grandmother History of breast cancer Mental health disorder Family/Other History of breast cancer Sister Substance use disorder Mental health disorder Maternal Aunt Substance use disorder Maternal Uncle Substance use disorder Paternal Uncle Substance use disorder Maternal Uncle Substance use disorder Mother Mental health disorder Brother Mental health disorder Social History Housing: Apartment Housing Other:: , 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, 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 [employer] Alcohol intake: never Patient Tobacco Use Status: Never used Tobacco e-Cigarette/Vaping Use: Never Used Current occupational status: employed Cognitive needs: No Hearing needs: No Vision needs: No Review of Systems Reports dysuria and Reports urinary urgency Physical Exam Vital Signs: Last Vital Signs Temp 97.5 F 12/09/22 15:07 Pulse 66 12/09/22 15:07 BP 130/78 12/09/22 15:07 Pulse Ox 95 12/09/22 15:07 Oxygen Delivery Method Room Air 12/09/22 15:07 BMI result Body Mass Index 32.8 Const General: cooperative, healthy appearing, no acute distress and alert Orientation/consciousness: patient oriented x3 Limitations: no limitations HEENT Head: Yes normal to inspection Ears: hearing grossly normal bilaterally General nose exam: Normal external nose present Resp Effort & Inspection: normal respiratory effort and able to speak in complete sentences Cardio Rate: regular rate General: Yes no CVA tenderness Back/Spine/Pelvis Back: no CVA tenderness Skin General skin exam: no rashes or lesions noted Neuro General: patient oriented x3 Extrem General: Yes normal to inspection Results AMB Urinalysis, Automated UA Leukoctes 125 Dereje/uL Last Edit by Alise Issa MA on 12/09/22 15:16 UA Nitrite Positive Last Edit by Alise Issa MA on 12/09/22 15:16 UA Urobilinogen 2 mg/dL Last Edit by Alise Issa MA on 12/09/22 15:16 UA Protein 0 mg/dL Last Edit by Alise Issa MA on 12/09/22 15:16 UA pH 5.5 Last Edit by Alise Issa MA on 12/09/22 15:16 UA Blood 10 Sergio/uL Last Edit by Alise Issa MA on 12/09/22 15:16 UA Specific [place] 1.030 Last Edit by Alise Issa MA on 12/09/22 15:16 UA Ketone Positive Last Edit by Alise Issa MA on 12/09/22 15:16 UA Bilirubin 2 mg/dL Last Edit by Alise Issa MA on 12/09/22 15:16 UA Glucose 0 mg/dL Last Edit by Alise Issa MA on 12/09/22 15:16 Results Reviewed Results Reviewed: Laboratory Last Values Urine pH (Auto) 5.5 12/09/22 15:15 Specific [place] (Auto) 1.030 12/09/22 15:15 Urine Protein (Auto) 0 mg/dL 12/09/22 15:15 Glucose (UA)(Auto) 0 mg/dL 12/09/22 15:15 Urine Ketones (Auto) Positive 12/09/22 15:15 Urine Blood (Auto) 10 Sergio/uL 12/09/22 15:15 Urine Nitrite (Auto) Positive 12/09/22 15:15 Urine Bilirubin (Auto) 2 mg/dL 12/09/22 15:15 Urine Urobilinogen (Auto) 2 mg/dL 12/09/22 15:15 Leukocyte Esterase (Auto) 125 Dereje/uL 12/09/22 15:15 Assessment & Plan Assessment & Plan (1) UTI (urinary tract infection): Code(s): N39.0 - Urinary tract infection, site not specified Qualifiers: Urinary tract infection type: acute cystitis Hematuria presence: without hematuria Qualified Code(s): N30.00 - Acute cystitis without hematuria Plan: UA consistent w/ UTI. Cephalexin 500 bid x 5 days & pyridium Discharge instructions, follow up and treatment are discussed with patient in my usual fashion. Alternatives in treatment are also discussed. The patient will return for worsening symptoms or as needed. Advised that any labs/imaging ordered will be followed up on and contact made if further treatment needed. Counseled that patient's condition may require further evaluation and/or treatment. Symptoms of concern for worsening disorder discussed in detail in my customary manner. Patient does verbalize understanding of the plan, there are no apparent barriers to communication. The patient is given the opportunity to ask questions and have them answered to his/her satisfaction Orders: Orders AMB Urinalysis Automated Today Z13.9 - Encounter for screening, unspecified Medications: New cephalexin 500 mg PO BID 5 days 10 caps 0RF phenazopyridine (Pyridium) 100 mg PO TID PRN 6 tabs 0RF pain Coding Level of Care Code Est Pt Level 3 (29660) Diagnoses Acute cystitis without hematuria N30.00 Urinary tract infection type: acute cystitis Hematuria presence: without hematuria
[2022-12-09 15:07] VITALS: BP 130/78; PULSE 66; TEMP 36.4; O2SAT 95; BMI 32.8
== END 2022-12-09 15:29 | disposition home or self-care (01) ==
PROVIDERS: PCP Internal Medicine; Visit Provider Physician Assistant
DX: N30.00 Acute cystitis without hematuria (principal); R35.0 Frequency of micturition
CPT/HCPCS: 81003; 99213

== ENCOUNTER 2022-12-10 12:56 | Emergency (ER) | payer BC, SELFPAY ==
--- NOTE | ~2022-12-10 | CT_ITS ---
EXAMINATION: CT ABDOMEN AND PELVIS WITH CONTRAST CLINICAL INFORMATION: Right lower quadrant pain COMPARISON: CT abdomen and pelvis 06/02/2012. TECHNIQUE: Multidetector volumetric images were obtained from the superior aspect of the liver through the pubic symphysis following administration 85 mL of Omnipaque 350 intravenous contrast. Sagittal and coronal reformatted images were obtained on the technologist's workstation. Oral contrast: No This CT examination was performed using dose optimization techniques as appropriate, variously including the following: *Automated exposure control *Adjustment of mA and/or kV according to patient size (this includes techniques or standardized protocols for targeted exams where dose is matched to indication/reason for exam; i.e. extremities or head) *Use of iterative reconstruction technique DLP: 828 mGy-cm FINDINGS: LUNG BASES: The visualized lung bases are unremarkable. LIVER, GALLBLADDER, AND BILIARY TREE: The liver is normal in size, shape, and attenuation. No focal hepatic lesion or biliary ductal dilatation is present. The gallbladder has been surgically removed. PANCREAS: Unremarkable. SPLEEN: Unremarkable. ADRENAL GLANDS: Unremarkable. KIDNEYS AND URETERS: The kidneys are normal in size, shape, and attenuation. No hydronephrosis, hydroureter, or calculi seen. No perinephric stranding. BLADDER: The bladder is nondistended and unremarkable. GASTROINTESTINAL TRACT: There is a gastric bypass or gastric reduction surgery in the epigastric region. Also visualized are sutures in the left mid abdomen involving proximal small bowel loop with mild mural thickening on axial image 30/3, nonspecific. Rest of the small bowel loops are normal caliber. Annular surgical sutures are seen in the sigmoid region from previous intervention. Appendix is normal caliber. No inflammatory process seen in the abdomen. There is no free air or free fluid. ABDOMINAL WALL: No significant hernia is appreciated. LYMPH NODES: Normal. VASCULAR: Unremarkable. PELVIC VISCERA: There is no free air or free fluid. OSSEOUS STRUCTURES: No aggressive lytic or sclerotic process seen. CT/CT abdomen pelvis w IV con IMPRESSION: 1. No acute intra-abdominal process seen. 2. There is a gastric bypass or gastric reduction surgery in the epigastric region. There is mild mural thickening involving the proximal small bowel loop in the left mid abdomen, nonspecific. 3. The gallbladder has been surgically removed. Fleischner guidelines were followed.
[2022-12-10 13:05] VITALS: BP 172/104; PULSE 88; RESP 18; TEMP 36.4; O2SAT 97; BMI 32.5
--- NOTE | 2022-12-10 13:05 | ED.GENADULT ---
HPI - General Adult General Chief complaint: Abdominal Pain Stated complaint: Pain in lower right abdomen/back Time Seen by Provider: 12/10/22 13:19 Source: patient and old records reviewed Mode of arrival: ambulatory Limitations: no limitations History of Present Illness HPI narrative: 47 yo female with PMH of hypothyroidism, GERD, s/p gastric sleeve/bypass, gallbladder removal, hysterectomy had urinary symptoms starting Tuesday saw urgent care yesterday and started on cephalexin and pyridium for UTI. This AM R flank pain with n/v and chills. No hx of renal colic. Cannot keep anything down. Was able to take 2 doses of cephalexin since pick up attendant. MD complaint: R flank pain Onset (ago): day(s) (this AM) Location: abdomen and right Radiation: abdomen Severity: severe Quality: stabbing Pain Consistency: constant Relieving factors: none Exacerbating factors: none Associated symptoms: fever/chills, loss of appetite, malaise and nausea/vomiting Treatments prior to arrival: other (cephalexin) Related Data Home Medications Medication Instructions Recorded Confirmed loperamide 2 mg capsule (Imodium 2 mg PO QID PRN Diarrhea 03/06/20 11/02/22 A-D) omeprazole 40 mg capsule,delayed 40 mg PO BID 03/06/20 11/02/22 release Previous Rx's Medication Instructions Recorded sertraline 100 mg tablet 100 mg PO DAILY #90 tabs 05/18/22 gabapentin 600 mg tablet See Rx Instructions PO BID #225 11/04/22 tabs levothyroxine 150 mcg tablet 150 mcg PO DAILY #90 tabs 11/04/22 cephalexin 500 mg capsule 500 mg PO BID 5 days #10 caps 12/09/22 nitrofurantoin 100 mg PO Q12H 7 days #14 caps 12/09/22 monohydrate/macrocrystals 100 mg capsule (Macrobid) phenazopyridine 100 mg tablet 100 mg PO TID PRN pain 6 doses #6 12/09/22 (Pyridium) tabs levofloxacin 750 mg tablet 750 mg PO DAILY #9 tabs 12/10/22 morphine 15 mg immediate release 15 mg PO Q6H PRN pain #12 tabs 12/10/22 tablet ondansetron 4 mg disintegrating 4 mg PO Q8H PRN nausea and 12/10/22 tablet vomiting #20 tabs Allergies Allergy/AdvReac Type Severity Reaction Status Date / Time oxycodone [From PERCOCET] Allergy Unknown ITCHING Verified 12/09/22 15:10 Review of Systems Review of Systems: Constitutional : No Fever, pos Chills ENT/Mouth : No sore throat Eyes: No Eye Pain, No Swelling, No Redness Cardiovascular : No Chest Pain, No SOB Respiratory : No Cough, No Sputum, No Wheezing Gastrointestinal : positive Nausea, positive Vomiting, No Diarrhea, positive abdominal pain Genitourinary : positive Dysuria, positive urinary frequency, no Hematuria, positive Flank Pain, no hesitancy Musculoskeletal : No joint pain, No Myalgias Skin : No Skin Lesions, No rash Neuro : No Weakness, No Numbness, No Headache Psych : No Anxiety/Panic, No Depression Heme/Lymph: No Bruising, No Lymphadenopathy Endocrine : No Polyuria, No Polydipsia All other systems reviewed and are negative PMFSH Past Medical History Attestation statement: The following information was validated with the patient. Source: old records reviewed Medical History Heart murmur History of shingles Hypothyroid Hx of mammogram Normal pelvic exam DJD (degenerative joint disease), lumbar GERD (gastroesophageal reflux disease) Overweight Insomnia IBS (irritable bowel syndrome) Anxiety Depression Epidermal cyst Surgical History H/O gastric bypass History of esophagogastroduodenoscopy (EGD) Hx of colonoscopy Gastric bypass status for obesity History of hysterectomy History of cholecystectomy Family History Family History Paternal Grandfather History of colon cancer Maternal Grandmother History of breast cancer Mental health disorder Family/Other History of breast cancer Sister Substance use disorder Mental health disorder Maternal Aunt Substance use disorder Maternal Uncle Substance use disorder Paternal Uncle Substance use disorder Maternal Uncle Substance use disorder Mother Mental health disorder Brother Mental health disorder Social History Social History Housing: Apartment Housing Other:: , 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, 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 [place] Alcohol intake: never Patient Tobacco Use Status: Never used Tobacco Smoked in Last 30 Days: No e-Cigarette/Vaping Use: Never Used Use of substances other than those prescribed or required for medical reasons: No Advance Directives: No Advance Directives Information Provided: Yes Current occupational status: employed Cognitive needs: No Hearing needs: No Vision needs: No Physical Exam ED Vital Signs: Vital Signs - 24 hr 12/10/22 13:05 12/10/22 15:31 12/10/22 15:36 Temperature 97.6 F 98 F Pulse Rate 88 74 Respiratory Rate 18 16 18 Blood Pressure 172/104 H 125/77 Pulse Oximetry 97 95 Oxygen Delivery Method Room Air Room Air BMI result Body Mass Index 32.5 Appearance: Alert. Oriented X3. in pain mild acute distress. Eyes: Pupils equal, round and reactive to light. ENT: Pharynx normal. Neck: Normal inspection. Neck supple. CVS: Normal heart rate and rhythm. Pulses normal. Respiratory: No respiratory distress. Breath sounds normal. Abdomen: Soft and moderate ttp in R flank and R abdomen no rebound Skin: Skin warm and dry. Normal skin color. Normal skin turgor. Extremities: No lower extremity edema. No calf ttp Neuro: Oriented X 3. No motor deficit. No sensory deficit. Course Course Course Narrative: RME- 47-year-old female presents for evaluation of right lower abdominal pain that radiates to the right flank. It started 2 days ago. She with her PCP yesterday and is currently being treated for a UTI. Plan for repeat UA, labs, CT abdomen pelvis without contrast to rule out obstructive uropathy Medications Administered Discontinued Medications Generic Name Dose Route Start Last Admin Trade Name Freq PRN Reason Stop Dose Admin Hydromorphone HCl 1 mg 12/10/22 13:32 12/10/22 15:31 Hydromorphone Hcl 1 Mg/Ml Syringe IVPUSH 12/10/22 13:33 1 mg ONCE ONE Administration Protocol Sodium Chloride 1,000 mls @ 999 mls/hr 12/10/22 13:30 12/10/22 15:30 Ns IV 12/10/22 14:30 999 mls/hr .Q1H1M JOHN Administration Iohexol 100 ml 12/10/22 14:54 12/10/22 14:54 Iohexol 350 Mg/Ml 100 Ml Infus..Btl IV 12/10/22 14:55 85 ml ONCE ONE Administration Ondansetron HCl 4 mg 12/10/22 13:20 12/10/22 15:31 Ondansetron Hcl 4 Mg/2 Ml Vial IVPUSH 12/10/22 13:21 4 mg ONCE ONE Administration Medical Decision Making Medical Decision Making [facility] Narrative: 47 yo female with PMH of hypothyroidism, GERD, s/p gastric sleeve/bypass, gallbladder removal, hysterectomy here with worsening urinary symptoms and R flank pain with n/v at this time will need IVF, IV dilaudid for pain, CT scan for renal colic/appendicitis. Differential Diagnosis Differential Diagnoses: The differential diagnosis associated with the presentation includes renal colic, appendicitis, pyelonephritis Admission/Observation Consideration of admission/observation: Escalation of care including admission/observation considered not toxic, labs stable, no WBC count, pain improved can be managed as outpatient able to tolerate PO feels okay with plan Lab Data [facility] Lab Attestation statement: I reviewed the patient's lab results. 12/10/22 13:21 12/10/22 13:21 Labs: Lab Results 12/10/22 Range/Units 13:21 WBC 9.5 (4.8-10.8) X10*3/uL RBC 4.11 L (4.20-5.50) X10*6/uL Hgb 13.1 (12.0-16.0) g/dl Hct 40.2 (37.0-47.0) % MCV 97.8 (80.0-98.0) fL MCH 31.9 (27.0-33.0) pg MCHC 32.6 (31.0-35.0) g/dl RDW 13.2 (11.0-16.0) % Plt Count 351 (160-400) X10*3/uL MPV 8.6 L (9.4-12.3) fL Immature Gran % (Auto) 0.2 (0.0-0.4) % Neut % (Auto) 62.8 (45-73) % Lymph % (Auto) 28.1 (20-40) % [place] % (Auto) 7.0 (2-11) % Eos % (Auto) 1.2 (0-4) % Baso % (Auto) 0.7 (0-2) % Lymph # (Auto) 2.7 (1.2-4.9) X10*3/uL [place] # (Auto) 0.7 (0.1-1.2) X10*3/uL Eos # (Auto) 0.1 (0.0-0.4) X10*3/uL Baso # (Auto) 0.1 (0.0-0.2) X10*3/uL Abs Immat Gran (auto) 0.02 (0.00-0.03) X10*3/uL Absolute Neuts (auto) 6.0 (2.0-8.3) x10*3/uL Absolute Nucleated RBC 0.000 (0.0-0.012) X10*3/uL Nucleated RBC % (auto) 0.0 (0.0-0.2) /100WBC Sodium 141 (135-145) mmol/L Potassium 4.1 (3.3-5.1) mmol/L Chloride 108 (96-108) mmol/L Carbon Dioxide 23 (22-29) mmol/L Anion Gap 14 (12-20) BUN 13 (9-16) mg/dL Creatinine 0.97 (0.5-1.4) mg/dL Estim Creat Clear Calc 69.0 Estimated GFR > 60 Random Glucose 100 (60-115) mg/dL Calcium 9.9 (8.4-10.2) mg/dL Total Bilirubin 0.3 (0.0-1.0) mg/dL Direct Bilirubin 0.2 (0.0-0.5) mg/dL AST 18 (5-31) U/L ALT 12 (0-31) U/L Alkaline Phosphatase 82 (39-117) U/L Total Protein 8.1 H (6.5-8.0) g/dL Albumin 4.5 (3.5-5.0) g/dL Lipase 42 (8-78) U/L Urine Color [place] Urine Appearance Hazy Urine pH 5.0 (5.0-9.0) Ur Specific [place] >= 1.030 H (1.005-1.025) Urine Protein See Note (Neg-Trace) mg/dL Urine Glucose (UA) See Note (Negative) mg/dL Urine Ketones See Note (Negative) mg/dL Urine Blood Small (1+) H (Negative) Urine Nitrite See Note (Negative) Ur Leukocyte Esterase Trace H (Negative) Urine RBC >20 H (0-2) /HPF Urine WBC 6-10 H (0-5) /HPF Ur Squamous Epith Cells 6-10 (0-2) /HPF Calcium Oxalate Crystal Present Urine Bacteria None Seen (None Seen) Hyaline Casts 0-2 (0-2) /LPF Urine Test NEGATIVE (NEGATIVE) Independent Interpretation I performed an independent interpretation of an: CT Scan (has no L sided pain it is all R sided - no renal issues on CT scan) Radiology Impression Discussion of test interpretation with radiology: I have reviewed the radiologist's reading. External Record Review External record reviewed: Inpatient record and Prior outpatient labs Discharge Plan Discharge Clinical Impression: Pyelonephritis Patient Disposition: Home, Self-Care Instructions: Kidney Infection (ED) Additional Instructions: STOP THE CEPHALEXIN GIVEN SYMPTOMS IT WILL NOT TREAT KIDNEY INFECTION. START ANTIBIOTIC IN THE AM. RETURN FOR WORSENING PAIN, FEVERS, VOMITING, INABILITY TO TAKE THE MEDICATIONS. Take a probiotic while you are on antibiotics and for at least one week after the antibiotics are finished - this can help protect your GI system from diarrhea and other issues. You can get probiotics by drinking kefir, eating yogurt or culturelle or another pill form of probiotic. Do not take it at the same time as you take the antibiotic.?More than 6 to 8 loose stools a day is not normal seek care if this happens WHILE ON LEVOFLOXACIN PLEASE AVOID SIGNIFICANT EXERCISE IT CAN LEAD TO TENDON INJURY STAY AWAY FROM ANYTHING THAT COULD CAUSE TRAUMA TO TENDONS SUCH A BRISK, HIKE, WEIGHT LIFTING, ETC. Prescriptions: New morphine 15 mg tablet 15 mg PO Q6H PRN (Reason: pain) Qty: 12 0RF Rx Instructions: partial fill okay; Partial Fill upon patient request. ondansetron 4 mg tablet,disintegrating 4 mg PO Q8H PRN (Reason: nausea and vomiting) Qty: 20 0RF levofloxacin 750 mg tablet 750 mg PO DAILY Qty: 9 0RF No Action sertraline 100 mg tablet 100 mg PO DAILY Qty: 90 3RF gabapentin 600 mg tablet See Rx Instructions PO BID Qty: 225 1RF Rx Instructions: 1 tab in am, 1.5 tab at bedtime orally 2 times a day; levothyroxine 150 mcg tablet 150 mcg PO DAILY Qty: 90 0RF nitrofurantoin monohyd/m-cryst [Macrobid] 100 mg capsule 100 mg PO Q12H 7 Days Qty: 14 0RF Rx Instructions: must administer with a meal/food phenazopyridine [Pyridium] 100 mg tablet 100 mg PO TID PRN (Reason: pain) Qty: 6 0RF cephalexin 500 mg capsule 500 mg PO BID 5 Days Qty: 10 0RF loperamide [Imodium A-D] 2 mg capsule 2 mg PO QID PRN (Reason: Diarrhea) omeprazole 40 mg capsule,delayed release(DR/EC) 40 mg PO BID
[2022-12-10 13:27] LABS: MANUAL DIFF FLAG NO
[2022-12-10 13:28] LABS: Basophils Absolute Auto 0.1 X10*3/uL (0.0-0.2); Basophils Percent Auto 0.7 % (0-2); Eosinophils Absolute Auto 0.1 X10*3/uL (0.0-0.4); Eosinophils Percent Auto 1.2 % (0-4); Hematocrit 40.2 % (37.0-47.0); Hemoglobin 13.1 g/dl (12.0-16.0); Imm Gran Abs Auto 0.02 X10*3/uL (0.00-0.03); Imm Gran Pct Auto 0.2 % (0.0-0.4); Lymphocytes Absolute Auto 2.7 X10*3/uL (1.2-4.9); Lymphocytes Percent Auto 28.1 % (20-40); Mean Corpuscular HGB Conc 32.6 g/dl (31.0-35.0); Mean Corpuscular Hemoglobin 31.9 pg (27.0-33.0); Mean Corpuscular Volume 97.8 fL (80.0-98.0); Mean Platelet Volume 8.6 fL (9.4-12.3); Monocytes Absolute Auto 0.7 X10*3/uL (0.1-1.2); Neutrophils Percent Auto 62.8 % (45-73); Platelet Count 351 X10*3/uL (160-400); Red Blood Count 4.11 X10*6/uL (4.20-5.50); Red Cell Distribution Width 13.2 % (11.0-16.0); White Blood Count 9.5 X10*3/uL (4.8-10.8)
[2022-12-10 13:29] LABS: Appearance Urine Hazy; Color Urine Orange; Leukocyte Esterase Urine Trace (Negative); Specific Gravity - Urine >= 1.030 (1.005-1.025); UMIC TRIGGER UACC YES; Urine Blood Small (1+) (Negative)
[2022-12-10 13:32] LABS: UPreg QC Valid YES; Urine Pregnancy NEGATIVE (NEGATIVE)
[2022-12-10 13:40] LABS: Anion Gap 14 (12-20); Blood Urea Nitrogen 13 mg/dL (9-16); Calcium 9.9 mg/dL (8.4-10.2); Carbon Dioxide 23 mmol/L (22-29); Chloride 108 mmol/L (96-108); Estimated Glomerular Filt Rate > 60; Glucose Random 100 mg/dL (60-115); Potassium 4.1 mmol/L (3.3-5.1); Sodium 141 mmol/L (135-145)
[2022-12-10 13:47] LABS: Bacteria Urine None Seen (None Seen); Calcium Oxalate Crystals Urine Present; Hyaline Casts Urine 0-2 /LPF (0-2); RBC Urine >20 /HPF (0-2); UACC Culture Trigger YES
[2022-12-10 14:17] LABS: Alanine Aminotransferase 12 U/L (0-31); Albumin Level 4.5 g/dL (3.5-5.0); Alkaline Phosphatase 82 U/L (39-117); Aspartate Amino Transferase 18 U/L (5-31); Bilirubin Direct 0.2 mg/dL (0.0-0.5); Bilirubin Total 0.3 mg/dL (0.0-1.0); Lipase 42 U/L (8-78); Total Protein 8.1 g/dL (6.5-8.0)
--- NOTE | 2022-12-10 14:33 | PC.NURSE ---
going to ct scan. +CMS. no respiratory distress.
[2022-12-10] MEDS: iohexoL 350 MG/ML 100 ML INFUS..BTL IV (14:54)
[2022-12-10] MEDS: 0.9 % Sodium Chloride 1,000 ML 999 ML IV (15:30)
[2022-12-10 15:31] VITALS: RESP 16
[2022-12-10] MEDS: HYDROmorphone HCl 1 MG/ML SYRINGE IVPUSH (15:31)
[2022-12-10] MEDS: ondansetron HCL 4 MG/2 ML VIAL IVPUSH (15:31)
[2022-12-10 15:36] VITALS: BP 125/77; PULSE 74; RESP 18; TEMP 36.6; O2SAT 95
[2022-12-10] MEDS: cefTRIAXone sodium 1 GM in 0.9 % Sodium Chloride 50 ML IV (16:40)
[2022-12-10 16:43] VITALS: RESP 18
[2022-12-10 17:00] VITALS: BP 126/70; PULSE 73; RESP 15; TEMP 36.4; O2SAT 92
== END 2022-12-10 17:17 | disposition home or self-care (01) ==
PROVIDERS: Physician Assistant; Emergency Provider Emergency Medicine; PCP Internal Medicine
DX: N12 Tubulo-interstitial nephritis, not specified as acute or chronic (principal); R10.31 Right lower quadrant pain; Z90.49 Acquired absence of other specified parts of digestive tract; Z98.84 Bariatric surgery status; Z90.710 Acquired absence of both cervix and uterus
CPT/HCPCS: 36415; 74177; 80048; 80076; 81001; 81025; 83690; 85025; 87086; 96374; 96375; 99284; J0696; J1170; J2405; Q9967

== ENCOUNTER 2022-12-22 10:51 | Outpatient (REF) | payer BC, SELFPAY ==
[2022-12-22 14:15] LABS: TSH reflex Free T4 16.51 uIU/mL (0.32-4.0)
== END 2022-12-22 10:52 | disposition home or self-care (01) ==
LOC: HO.HMGCLDS 10:51
PROVIDERS: PCP Internal Medicine; Visit Provider Internal Medicine
DX: E03.9 Hypothyroidism, unspecified (principal)
CPT/HCPCS: 36415; 84439; 84443

== ENCOUNTER 2023-03-11 11:14 | Outpatient (AMB) | payer BC, SELFPAY ==
--- NOTE | 2023-03-11 11:42 | A.OFFPC_ITS ---
Vital Signs 03/11/23 11:44 Height 5 ft 2 in Weight 170 lb 3 oz BMI 31.1 BP 118/66 Blood Pressure Location Rt brachial Position Sitting Pulse 80 Pulse Source Pulse Oximeter Pulse Oximetry (%) 96 Oxygen Delivery Method Room Air Intake Visit Reasons: Follow up Intake Note: Pt is here today for a follow up visit she has some questions she would like to discuss with the doctor. Allergies oxycodone [From PERCOCET] Allergy (Unknown, Verified 03/11/23 11:46) ITCHING Medication List - Last Reconciled 03/11/23 by Corry Perez MD azithromycin For 250 mg dose pack: take 500 mg today (day 1), then 250 mg for 4 days (days 2-5) PO gabapentin 1 tab in am, 1.5 tab at bedtime orally 2 times a day; levothyroxine 175 mcg PO DAILY loperamide (Imodium A-D) 2 mg PO QID PRN omeprazole 40 mg PO BID PRN sertraline 100 mg PO DAILY Tobacco use date assessed: 03/11/23 Dental Screening Dental Screen Date: 03/11/23 Did you have a dental visit in the last 12 months?: Yes Did you have a dental problem in the last 6 months where you did not have access to dental care?: No Was dental information given to patient?: Patient has dentist HPI Follow up HPI Details Patient presents complaining of episodes of shakiness lasting about 5 minutes usually at work. The symptoms resolved after patient drinks a glass of orange juice. She denies seizure activity loss of consciousness palpitations chest pains. She had gastric bypass surgery a year ago and lost 40 lb. Patient complains of right facial pain for 2 weeks started after upper respiratory infection. Patient denies fever chills cough or sore throat [facility] Medical History Heart murmur History of shingles Hypothyroid Hx of mammogram Normal pelvic exam DJD (degenerative joint disease), lumbar GERD (gastroesophageal reflux disease) Overweight Insomnia IBS (irritable bowel syndrome) Anxiety Depression Epidermal cyst Surgical History H/O gastric bypass History of esophagogastroduodenoscopy (EGD) Hx of colonoscopy Gastric bypass status for obesity History of hysterectomy History of cholecystectomy Family History Paternal Grandfather History of colon cancer Maternal Grandmother History of breast cancer Mental health disorder Family/Other History of breast cancer Sister Substance use disorder Mental health disorder Maternal Aunt Substance use disorder Maternal Uncle Substance use disorder Paternal Uncle Substance use disorder Maternal Uncle Substance use disorder Mother Mental health disorder Brother Mental health disorder Social History Housing: Apartment Housing Other:: , 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, 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 Alcohol intake: never Patient Tobacco Use Status: Never used Tobacco e-Cigarette/Vaping Use: Never Used Current occupational status: employed Cognitive needs: No Hearing needs: No Vision needs: No Questionnaire Thrive Questionnaire Date Thrive assessed: 11/02/22 I am a: Patient What is your living situation today?: I have a steady place to live Within the past 12 months, did the food you bought not last and you didn't have the money to get more?: Never true Within the past 12 months, did you worry whether your food would run out before you got money to buy more?: Never true THRIVE Score: 0 AUDIT C Alcohol Use Questionnaire (AUDIT-C) 1. How often do you have a drink containing alcohol?: Never 2. How many drinks containing alcohol do you have on a typical day when you are drinking?: 1 or 2 3. How often do you have six or more drinks on one occasion?: Never Total Score: 0 DANIELLE-7 AMB Questionnaire DANIELLE-7 Date DANIELLE - 7 assessed: 11/02/22 Feeling nervous, anxious, or on edge: 1 = Several days Not being able to stop or control worryin = Several days Worrying too much about different things: 1 = Several days Trouble relaxin = Nearly every day Being so restless that it is hard to sit still: 1 = Several days Becoming easily annoyed or irritable: 2 = More than half the days Feeling afraid as if something awful might happen: 0 = Not at all Total DANIELLE-7 score (0-4 normal; 5-9 mild; 10-14 moderate; 15-21 severe): 9 Source: Developed by Drs. Aravind Ding, Yokasta Valdez, Denzel Rivera and colleagues, with an educational og from [employer]. Review of Systems Const All systems reviewed & are unremarkable except as noted in HPI and below Reports no additional complaints Eyes Reports no additional complaints ENT Reports no additional complaints Card Reports no additional complaints Resp Reports no additional complaints GI Reports no additional complaints Reports no additional complaints Physical exam (Primary Care) Vital Signs: Last Vital Signs Pulse 80 03/11/23 11:44 BP 118/66 03/11/23 11:44 Pulse Ox 96 03/11/23 11:44 Oxygen Delivery Method Room Air 03/11/23 11:44 BMI result Body Mass Index 31.1 Tobacco/Smoking Status: Tobacco use Status Tobacco use date assessed 03/11/23 03/11/23 11:48 Patient Tobacco Use Status Never used Tobacco 03/11/23 11:48 e-Cigarette/Vaping Use Never Used 03/11/23 11:44 Thrive Assessment: Date of Thrive Assessment Date Thrive assessed 11/02/22 03/11/23 11:44 Const General: no acute distress HENMT Head: Yes normal to inspection Face and sinus: Yes sinus tenderness (Right maxillary) Mouth: Normal oral and palatal mucosa present Throat: Yes posterior oropharynx normal Eyes General: appearance normal, both eyes and all related structures Neck Neck: Yes no lymphadenopathy and Yes supple Resp Effort & Inspection: normal respiratory effort Auscultation: clear to auscultation bilaterally Cardio Rhythm: regular rhythm Heart sounds: S1 normal heart sound present and S2 normal heart sound present Assessment and Plan Assessment & Plan (1) Hypothyroid: Comment: f/u Dr Cabezas Code(s): E03.9 - Hypothyroidism, unspecified Plan: Check TSH level (2) H/O gastric bypass: Comment: Mar 2022 Code(s): Z98.84 - Bariatric surgery status Plan: Check iron vitamin levels (3) Tremor: Code(s): R25.1 - Tremor, unspecified Plan: Check fasting glucose ,A1c insulin level, patient was advised to eat small frequent meals, and she will check her glucose level while having symptoms (4) Sinusitis: Code(s): J32.9 - Chronic sinusitis, unspecified Plan: Z-John as prescribed and supportive care discussed with the patient Orders: Orders Comprehensive Met. Panel Today E03.9 - Hypothyroidism, unspecified, R25.1 - Tremor, unspecified, Z98.84 - Bariatric surgery status Complete Blood Count Auto Diff Today E03.9 - Hypothyroidism, unspecified, R25.1 - Tremor, unspecified, Z98.84 - Bariatric surgery status TSH reflex Free T4 Today E03.9 - Hypothyroidism, unspecified, R25.1 - Tremor, unspecified, Z98.84 - Bariatric surgery status Triiodothyronine T3 Free Today E03.9 - Hypothyroidism, unspecified, R25.1 - Tremor, unspecified, Z98.84 - Bariatric surgery status Hemoglobin A1c Today E03.9 - Hypothyroidism, unspecified, R25.1 - Tremor, unspe cified, Z98.84 - Bariatric surgery status IRON PROFILE Today E03.9 - Hypothyroidism, unspecified, R25.1 - Tremor, unspecified, Z98.84 - Bariatric surgery status Vitamin B12 and Folate Today E03.9 - Hypothyroidism, unspecified, R25.1 - Tremor, unspecified, Z98.84 - Bariatric surgery status Lipid Panel Today E03.9 - Hypothyroidism, unspecified Medications: New azithromycin For 250 mg dose pack: take 500 mg today (day 1), then 250 mg for 4 days (days 2-5) PO 6 tabs 0RF Coding Level of Care Code Est Pt Level 4 (18091) Diagnoses Hypothyroid E03.9 H/O gastric bypass Z.84 Tremor R25.1 Sinusitis J32.9
[2023-03-11 11:44] VITALS: BP 118/66; PULSE 80; O2SAT 96; BMI 31.1
== END 2023-03-11 12:42 | disposition home or self-care (01) ==
PROVIDERS: PCP Internal Medicine; Visit Provider Internal Medicine
DX: E03.9 Hypothyroidism, unspecified (principal); Z98.84 Bariatric surgery status; R25.1 Tremor, unspecified; J32.9 Chronic sinusitis, unspecified
CPT/HCPCS: 99214

== ENCOUNTER 2023-03-19 07:53 | Outpatient (REF) | payer BC, SELFPAY ==
[2023-03-19 11:35] LABS: MANUAL DIFF FLAG NO
[2023-03-19 11:38] LABS: Basophils Absolute Auto 0.1 X10*3/uL (0.0-0.2); Basophils Percent Auto 0.9 % (0-2); Eosinophils Absolute Auto 0.1 X10*3/uL (0.0-0.4); Eosinophils Percent Auto 2.2 % (0-4); Hematocrit 39.8 % (37.0-47.0); Hemoglobin 12.6 g/dl (12.0-16.0); Imm Gran Abs Auto 0.01 X10*3/uL (0.00-0.03); Imm Gran Pct Auto 0.2 % (0.0-0.4); Lymphocytes Absolute Auto 3.3 X10*3/uL (1.2-4.9); Lymphocytes Percent Auto 50.9 % (20-40); Mean Corpuscular HGB Conc 31.7 g/dl (31.0-35.0); Mean Corpuscular Hemoglobin 31.1 pg (27.0-33.0); Mean Corpuscular Volume 98.3 fL (80.0-98.0); Monocytes Absolute Auto 0.5 X10*3/uL (0.1-1.2); Monocytes Percent Auto 7.5 % (2-11); Neutrophils Absolute Auto 2.5 x10*3/uL (2.0-8.3); Neutrophils Percent Auto 38.3 % (45-73); Platelet Count 349 X10*3/uL (160-400); Red Blood Count 4.05 X10*6/uL (4.20-5.50); Red Cell Distribution Width 13.6 % (11.0-16.0); White Blood Count 6.4 X10*3/uL (4.8-10.8)
[2023-03-19 11:47] LABS: Estimated Average Glucose 97 mg/dL
[2023-03-19 12:14] LABS: Alanine Aminotransferase 15 U/L (0-31); Alkaline Phosphatase 81 U/L (39-117); Anion Gap 10 (12-20); Aspartate Amino Transferase 17 U/L (5-31); Bilirubin Total 0.2 mg/dL (0.0-1.0); Blood Urea Nitrogen 11 mg/dL (9-16); Calcium 9.9 mg/dL (8.4-10.2); Carbon Dioxide 28 mmol/L (22-29); Chloride 107 mmol/L (96-108); Cholesterol 128 mg/dL (<200); Estimated Glomerular Filt Rate > 60; Glucose Random 87 mg/dL (60-115); HDL Cholesterol 46 mg/dL (>40); Iron 64 mcg/dL (30-160); LDL Cholesterol Calculated 66 mg/dL (<100); Percent Iron Saturation 19 % (15-50); Potassium 4.3 mmol/L (3.3-5.1); Sodium 141 mmol/L (135-145); Total Iron Binding Capacity 333 mcg/dL (228-428); Total Protein 7.2 g/dL (6.5-8.0); Triglycerides 83 mg/dL (<150); Unsaturated Iron Binding 269 ug/dL
[2023-03-19 12:30] LABS: TSH reflex Free T4 0.16 uIU/mL (0.32-4.0)
[2023-03-19 12:32] LABS: Vitamin B12 285 pg/mL (200-900)
[2023-03-19 13:02] LABS: Free T4 (Free Thyroxine) 1.19 ng/dL (0.71-1.85)
[2023-03-20 16:18] LABS: Triiodothyronine T3 Free 4.4 pg/mL (2.3-4.2)
== END 2023-03-19 07:54 | disposition home or self-care (01) ==
LOC: HO.HMGCLDS 07:53
PROVIDERS: PCP Internal Medicine; Visit Provider Internal Medicine
DX: E03.9 Hypothyroidism, unspecified (principal); R25.1 Tremor, unspecified; Z98.84 Bariatric surgery status
CPT/HCPCS: 36415; 80053; 80061; 82607; 82746; 83036; 83540; 84439; 84443; 84481; 85025

== ENCOUNTER 2023-07-25 13:04 | Outpatient (AMB) | payer BC, SELFPAY ==
[2023-07-25 13:56] VITALS: BP 126/72; PULSE 78; TEMP 36.3; O2SAT 98; BMI 31.8
--- NOTE | 2023-07-25 13:56 | AM.OFFWIN_ITS ---
Intake Vital Signs 07/25/23 13:56 Height 5 ft 2 in Weight 174 lb BMI 31.8 BP 126/72 Blood Pressure Location Lt brachial Position Sitting Pulse 78 Pulse Source Pulse Oximeter Temp 97.4 F Temp Source Temporal Artery Scan Pulse Oximetry (%) 98 Oxygen Delivery Method Room Air Intake Visit Reasons: EP UTI Intake Note: pt is here today for UTI started tuesday Patient Tobacco Use Status: Never used Tobacco Allergies oxycodone [From PERCOCET] Allergy (Unknown, Verified 07/25/23 13:59) ITCHING Do you need a note to return to daycare/school/sports/work: No HPI HPI Comments History of Present Illness Details Patient presents to the walk-in today for sick visit Complaining of dysuria, urgency, frequency for last 2 days Denies suprapubic abdominal pain, but states she has been taking azo Had UTI 7 months ago, failed treatment with Macrobid and Keflex. Ended up in the emergency room and diagnosed with pyelonephritis Concerned that this will advance if not treated mike Denies blood in the urine, stool Denies vomiting or diarrhea Endorses chills, denies fevers PFSH Medical History Heart murmur History of shingles Hypothyroid Hx of mammogram Normal pelvic exam DJD (degenerative joint disease), lumbar GERD (gastroesophageal reflux disease) Overweight Insomnia IBS (irritable bowel syndrome) Anxiety Depression Epidermal cyst Surgical History H/O gastric bypass History of esophagogastroduodenoscopy (EGD) Hx of colonoscopy Gastric bypass status for obesity History of hysterectomy History of cholecystectomy Family History Paternal Grandfather History of colon cancer Maternal Grandmother History of breast cancer Mental health disorder Family/Other History of breast cancer Sister Substance use disorder Mental health disorder Maternal Aunt Substance use disorder Maternal Uncle Substance use disorder Paternal Uncle Substance use disorder Maternal Uncle Substance use disorder Mother Mental health disorder Brother Mental health disorder Social History Housing: Apartment Housing Other:: , 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 Answers questions appropriately. Fully engaged in examination. Skin: warm, dry, intact HEENT: Normocephalic. Hearing intact. Cardiac: External chest normal in appearance. Respiratory: No cough, audible wheezing or stridor. Abdomen: without gross distension. soft, nontender. no guarding. no CVA tenderness MS: No obvious swelling or deformities. Neurological: Oriented to person, place, time and situation. Thought process intact. No gait abnormalities appreciated. Psychiatric: Appropriate mood and affect. Good judgment and insight. Results AMB Urinalysis, Automated UA Leukoctes 500 Dereje/uL Last Edit by REFUGIO Maria on 07/25/23 14:29 UA Nitrite Positive Last Edit by REFUGIO Maria on 07/25/23 14:29 UA Urobilinogen 8 mg/dL Last Edit by REFUGIO Maria on 07/25/23 14:29 UA Protein 30 mg/dL Last Edit by REFUGIO Maria on 07/25/23 14:29 UA pH 5.0 Last Edit by REFUGIO Maria on 07/25/23 14:29 UA Blood 0 Sergio/uL Last Edit by REFUGIO Maria on 07/25/23 14:29 UA Specific [place] 1.030 Last Edit by REFUGIO Maria on 07/25/23 14: 29 UA Ketone Positive Last Edit by REFUGIO Maria on 07/25/23 14:29 UA Bilirubin 4 mg/dL Last Edit by REFUGIO Maria on 07/25/23 14:29 UA Glucose 250 mg/dL Last Edit by REFUGIO Maria on 07/25/23 14:29 Results Reviewed Results Reviewed: UA: 3+ leuks Positive nitrites 2+ ketones Assessment & Plan Assessment & Plan (1) UTI (urinary tract infection): Code(s): N39.0 - Urinary tract infection, site not specified Plan UA reviewed, results as per above Continue with azo as needed for next 2 days Cipro 500 mg p.o. b.i.d. x5 days Patient advised on red flag symptoms and when to seek treatment in the emergency room Follow up with PCP after completion of antibiotics. Consider repeat UA to ensure infection is cleared. May benefit from referral to Urology. Follow up with PCP or return here for any new or worsening symptoms Orders: Orders AMB Urinalysis Automated Today Z13.9 - Encounter for screening, unspecified Medications: New ciprofloxacin HCl 500 mg PO BID 5 days 10 tabs 0RF Coding Level of Care Code Est Pt Level 3 (49984) Diagnoses UTI (urinary tract infection) N39.0
== END 2023-07-25 14:55 | disposition home or self-care (01) ==
PROVIDERS: PCP Internal Medicine; Visit Provider Registered Nurse Emergency
DX: N39.0 Urinary tract infection, site not specified (principal)
CPT/HCPCS: 81003; 99213

== ENCOUNTER 2023-11-04 08:06 | Outpatient (REF) | payer BC, SELFPAY ==
[2023-11-04 10:02] LABS: Appearance Urine Clear; Color Urine Dark Yellow; Glucose Urine UA Negative (Negative); Leukocyte Esterase Urine Negative (Negative); Nitrite Urine Negative (Negative); Specific Gravity - Urine >= 1.030 (1.005-1.025); Urine Blood Negative (Negative); Urine Ketones Trace mg/dL (Negative); Urine Protein Trace mg/dL (Neg-Trace)
[2023-11-04 10:53] LABS: TSH reflex Free T4 0.41 uIU/mL (0.32-4.0)
== END 2023-11-04 08:07 | disposition home or self-care (01) ==
LOC: HO.HMGCLDS 08:06
PROVIDERS: Nurse Practitioner Family; PCP Internal Medicine; Visit Provider Internal Medicine
DX: E03.9 Hypothyroidism, unspecified (principal); R30.0 Dysuria
CPT/HCPCS: 36415; 81003; 84443

== ENCOUNTER 2024-01-30 05:48 | Day surgery (SDC) | payer BC, SELFPAY ==
[2024-01-26 15:32] VITALS: BMI 31.8
--- NOTE | 2024-01-27 09:24 | HO.ANESPROP2 ---
Documented by User: Sally Phillips NP 01/27/24 09:24 HPI - Anesthesia Eval Consult details Narrative: 48yo F for Colonoscopy PMFSH Active Problems Active Problems: All Active Problems UTI (urinary tract infection) (Acute) Sinusitis (Acute) Tremor (Acute) Annual physical exam (Acute) Abdominal pain (Acute) H/O gastric bypass (Acute) Insomnia (Acute) Hypothyroid (Acute) Hx of mammogram (Acute) Normal pelvic exam (Acute) DJD (degenerative joint disease), lumbar (Acute) GERD (gastroesophageal reflux disease) (Acute) Overweight (Acute) Hx of colonoscopy (Acute) Epidermal cyst (Acute) Past Medical History Medical History Fatty liver Heart murmur History of shingles Hypothyroid Hx of mammogram Normal pelvic exam DJD (degenerative joint disease), lumbar GERD (gastroesophageal reflux disease) Overweight Insomnia IBS (irritable bowel syndrome) Anxiety Depression Epidermal cyst Family History Family History Paternal Grandfather History of colon cancer Maternal Grandmother History of breast cancer Mental health disorder Family/Other History of breast cancer Sister Substance use disorder Mental health disorder Maternal Aunt Substance use disorder Maternal Uncle Substance use disorder Paternal Uncle Substance use disorder Maternal Uncle Substance use disorder Mother Mental health disorder Brother Mental health disorder Family history of problems with anesthesia: No Surgical History Surgical History Hx of esophagogastroduodenoscopy (12/24/21) H/O gastric bypass History of esophagogastroduodenoscopy (EGD) Hx of colonoscopy Gastric bypass status for obesity History of hysterectomy History of cholecystectomy History of Problems with Anesthesia: No Social History Social History Housing: Apartment Housing Other:: , 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 If so, by whom?: No Are you DNR?: No Advance Directives: No Advance Directives Information Provided: Yes Recently lost weight without trying: No Nutrition Risks: No Nutritional Risk Current occupational status: employed Cognitive needs: No Hearing needs: No Vision needs: No Meds Allergies Allergy/AdvReac Type Severity Reaction Status Date / Time oxycodone [From PERCOCET] Allergy Unknown ITCHING Verified 01/30/24 07:02 Home Medications ?Medication ?Instructions ?Recorded ?Confirmed ?Last Taken ?Type loperamide 2 mg capsule (Imodium 2 mg PO QID PRN Diarrhea 03/06/20 01/30/24 Unknown History A-D) omeprazole 40 mg capsule,delayed 40 mg PO BID PRN Stomach Upset 03/11/23 01/30/24 Unknown History release Exam Height,Weight and Vital Signs: Height 5 ft 2 in Weight 78.925 kg Assessment and Plan Assessment Anesthesia Assessment: Chart Reviewed Final Anesthetic Review Family History of Problems with Anesthesia: No History of Problems with Anesthesia: No Documented by User: Krystal Peters MD 01/30/24 07:37 [facility] Past Medical History Medical History Fatty liver Heart murmur History of shingles Hypothyroid Hx of mammogram Normal pelvic exam DJD (degenerative joint disease), lumbar GERD (gastroesophageal reflux disease) Overweight Insomnia IBS (irritable bowel syndrome) Anxiety Depression Epidermal cyst Family History Family History Paternal Grandfather History of colon cancer Maternal Grandmother History of breast cancer Mental health disorder Family/Other History of breast cancer Sister Substance use disorder Mental health disorder Maternal Aunt Substance use disorder Maternal Uncle Substance use disorder Paternal Uncle Substance use disorder Maternal Uncle Substance use disorder Mother Mental health disorder Brother Mental health disorder Surgical History Surgical History Hx of esophagogastroduodenoscopy (12/24/21) H/O gastric bypass History of esophagogastroduodenoscopy (EGD) Hx of colonoscopy Gastric bypass status for obesity History of hysterectomy History of cholecystectomy Social History Social History Housing: Apartment Housing Other:: , 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 If so, by whom?: No Are you DNR?: No Advance Directives: No Advance Directives Information Provided: Yes Recently lost weight without trying: No Nutrition Risks: No Nutritional Risk Current occupational status: employed Cognitive needs: No Hearing needs: No Vision needs: No Meds Allergies Allergy/AdvReac Type Severity Reaction Status Date / Time oxycodone [From PERCOCET] Allergy Unknown ITCHING Verified 01/30/24 07:02 Home Medications ?Medication ?Instructions ?Recorded ?Confirmed ?Last Taken ?Type loperamide 2 mg capsule (Imodium 2 mg PO QID PRN Diarrhea 03/06/20 01/30/24 Unknown History A-D) omeprazole 40 mg capsule,delayed 40 mg PO BID PRN Stomach Upset 03/11/23 01/30/24 Unknown History release Exam Airway Mallampati Class: II TM Dist: >3cm Neck ROM: Full Heart: rrr Lungs: cta Assessment and Plan Assessment Anesthesia Assessment: Anesthesia Plan Discussed Final Anesthetic Review NPO: Yes ASA Class: III Final Preanesthetic Review: No Changes in Pt Med Stat, Meds/Allgs Chart Reviewed, Consent Obtained/Reviewed and Anes Risks/Benef Reviewed Patient Risk: Intermediate Procedure Risk: Low Anesthetic Plan Anesthetic Plan: MAC: Disposition: Standard PACU
--- OUTSIDE RECORDS SUMMARY | 2024-01-30 05:50 | XMS_ITS | Patient Health Record ---
Author Organization [facility] Address [address] [place] [address] Care Team Providers Care Inpatient Care Manager Rn Name Role Phone Corry Perez MD Primary Care Provider Unavaila Aravind Feliz Unavailable [phone] Simeon Calvo MD Unavailable Unavailable ALLERGIES Allergen (clinical drug ingredient) Drug/Non Drug Allergy documented on EMR Reaction Allergy Type Onset Date Status acetaminophen / oxycodone Percocet Unknown Drug Allergy Active REASON FOR REFERRAL No Information MEDICATIONS Medication SIG (Take, Route, Frequency, Duration) Notes Start Date End Date Status Omeprazole 40 MG 1 Orally Once a day for 30 days as needed Active Zoloft 100 mg 1 tab Oral qd Ac tive Imodium A-D 2 MG 1 tablet as needed Orally Four times a day/prn Active Synthroid 137 MCG 1 tablet on an empty stomach in the morning Orally Once a day Active Gabapentin 800 MG 1 tablet Orally Once a day for 30 day(s) 900 mg a day Active Pepcid 40 MG 1 Orally at 1 PM and 6PM for 30 day(s) 10/03/2019 Not-Taking IMMUNIZATIONS Vaccine Route Administration Date Status Comme nts Influenza Unknown 11/21/2017 Administered Influenza Unknown 02/14/2019 Administered Influenza Unknown 12/16/2019 Administered Influenza Unknown 12/30/2020 Administered Influenza Unknown 12/07/2022 Administered SOCIAL HISTORY Sex Assigned At : Social History Observation Description Sex Assigned At Unknown Alcohol Screen Question Answer Notes Did you have a drink containing alcohol in the p ast year? No Points 0 Interpretation Negative PROBLEMS Problem Type ICD Code Onset Dates Problem Status W/U Status Risk SNOMED Code Notes Problem Colon cancer screening (Z12.11) Active confirmed Colon can cer screening (778895281) Problem Irritable bowel syndrome with diarrhea (K58.0) Active confirmed 448639268 Problem Heartburn (R12) Active confirmed 602992 00 Problem Gastroesophageal reflux disease without esophagitis (K21.9) Active confirmed 189618292 Problem Elevated liver enzymes (R74.8) Active confirmed 097217195 Problem Fatty liver (K76.0) Active confirmed 19 4293133 Problem Gastroesophageal reflux disease, esophagitis presence not specified (K21.9) Active confirmed 732057674 Problem Gastritis (K29.70) Active confirmed Gas tritis (5635637) VITAL SIGNS Temperature 97.7 degrees Fahrenheit 07/06/2023 Blood pressure diastolic 00 mm Hg 07/06/2023 Height 62 in 07/06/2023 Blood pressure systolic 000 mm Hg 07/06/2023 Weight 174 lbs 07/06/2023 BMI 31.82 kg/m2 07/06/2023 Encounters Encounter Location Date Provider Diagnosis [facility] Outpatient [address] [place] [id number] 10/12/2023 Aravind Schwartz [facility] Outpatient [address] [place] [id number] 01/30/2024 Aravind Schwartz [facility] [address] [place] [phone] 03/01/2023 Aravind Schwartz [facility] [address] [place] [phone] 07/06/2023 Aravind Schwartz Gastroesophageal ref lux disease without esophagitis K21.9 and Colon cancer screening Z12.11 [facility] [address] [place] [phone] 05/13/2023 Aravind Schwartz [facility] [address] [place] [phone] 10/07/2023 Aravind Schwartz [facility] [address] [place] [phone] 12/29/2023 Aravind Schwartz ASSESSMENTS Encounter Date Diagnosis Assessment Notes Treatment Notes Treatment Clinical Notes 07/06/2023 Colon cancer screeni ng (ICD-10 - Z12.11) 07/06/2023 Gastroesophageal ref lux disease without esophagitis (ICD-10 - K21.9) PLAN OF TREATMENT Pending Test Test Name Order Date Esophageal Motility study 06/13/2019 LIVER PROFILE 01/17/2015 24 HR pH PROBE 06/13/2019 Future Test Test Name Order Date UPPER GI ENDOSCOPY 03/27/2013 COLONOSCOPY 03/27/2013 UPPER GI ENDOSCOPY 04/10/2019 UPPER GI ENDOSCOPY 10/14/2021 COLONOSCOPY 07/06/2023 Next Appt Details Provider Name:Aravind Schwartz , 01/30/2024 07:30:00 AM, [address] [place] [address] , [place], [place], [phone], Insurance Providers Payer Name Payer Address Payer Phone Subscriber Number Group Number Insured Name Patient Relationship to Insured Coverage Start Date Coverage End Date [facility] [address] [place], [place] [id number] PALMA BERGMAN Self - patient is the insured MEDICAL (GENERAL) HISTORY Medical History History ICD Code Fatty liver--liver bx in 200 7--this was done during a cholecystectomy, and revealed evidence of fatty liver but no evidence of any hepatitis nor fibrosis, nor any sign of iron overload-she also had negative hepatitis B and C serologies, negative autoimmune studies, normal iron studies, and normal ceruloplasmin; liver studies showed an AST 24 and ALT 41 in 12/2013, but her ALT was 103 in April of 2014; in July 2016 her AST was 34 and ALT was 45, with an otherwise normal liver profile Winifred's thyroiditis GERD-EGD in 04/2013--small HH-no esophagi tis, no Shah's, no celiac disease Migraines Insomnia Denies ID,DM,CVA,Lung disease,renal dise ase Depression IBS with Diarrhea--could not tolerate cholestyramine due to nausea;minimal relief with Imodium-transglutaminase IgA and IgG were negative in 2008--normal duodenal and colon biopsies in 04/2013. She was given a prescription for Lotronex on July 26, 2014--however, the insurance would not pay for that. Normal colonoscopy in 04/2013 , except for internal hemorrhoids-biopsies were negative for microscopic colitis Sleep apnea-not using the CPAP COVID 05/2019 EGD 03/2019 with increased am ount of bile and gastritis--bx neg for Hpylori-relatively minimal HH-no esophagitis nor Shah's Normal nuclear medicine gastric emptying study in 2019 Esophageal motility study in 2019 revealed relatively poor esophageal motility but normal lower esophageal sphincter 24-hour pH study in 2019 was consistent with acid reflux--she noted a definite worsening of her symptoms while she was off of the omeprazole for the study EGD 10/2021 with small HH, but no esophag itis nor Shah's Surgical History Surgery Date(Month/Year) Laparoscopy for adhesions JENNIFER--had a bowel perf during that which was repaired by Dr. Jarrell [facility] for acalculous cholecystitis by Dr. Arias BT with a reversal Right foot surgery x2 Gastric sleeve surgery- 8--Dr. Calvo at [facility]--started at 256# and is now 190# as of 01/25/18, 176# in 03/2019; but 207# in 09/2021 OV Gastric bypass 03/2022
--- OUTSIDE RECORDS SUMMARY | 2024-01-30 05:50 | XMS_ITS ---
Author Name [facility] Organization Unknown History of Medication Use Medication Directions Dispensed Refills Start Date End Date [facility] benzonatate (TESSALON) 200 MG capsule Take 1 capsule (200 mg total) by mouth 3 (three) times a day as needed for cough. 10/03/2023 active fluticasone (FloNASE) 50 mcg/spray nasal spray 1 spray into each nostril daily. 10/03/2023 active sertralineTakeNo le e recordedNo form recordedNo frequency recordedNo route recordedNo set duration recordedNo set duration amount recordedactiveNo dosage strength recordedNo dosage strength units of measure recorded 04/21/2023 active gabapentin (NEURONTIN) 600 MG tablet TAKE 1 TABLET BY MOUTH IN THE MORNING AND 1 & 1/2 (ONE & ONE-HALF) TABLETS AT BEDTIME 11/27/2022 active omeprazoleTakeNo le e recordedNo form recordedNo frequency recordedNo route recordedNo set duration recordedNo set duration amount recordedactiveNo dosage strength recordedNo dosage strength units of measure recorded 04/21/2023 active SUMAtriptan succinateTake 1 Tablet (oral) 1 time per day PRN - Headache for 6 days (May take a second pill if no relief in 1 hour)[id number] time per [id number] 04/21/2023 acti ve omeprazoleTakeNo le e recordedNo form recordedNo frequency recordedNo route recordedNo set duration recordedNo set duration amount recordedactiveNo dosage strength recordedNo dosage strength units of measure recorded 04/21/2023 active sertraline (ZOLOFT) 100 MG tablet Take 100 mg by mouth daily. 11/27/2022 active brompheniramine-ps eudoephedrine-DM (BROMFED DM) 30-2-10 MG/5ML syrup Take 10 mL by mouth 4 (four) times a day as needed for congestion or cough. 11/27/2022 active OMEprazole (PriLOSEC) 40 MG capsule Take 40 mg by mouth 2 (two) times a day. 11/27/2022 active gabapentinTakeNo le e recordedNo form recordedNo frequency recordedNo route recordedNo set duration recordedNo set duration amount recordedactiveNo dosage strength recordedNo dosage strength units of measure recorded 04/21/2023 active cyclobenzaprineTake 1 tablet (Oral) 3 times per day for 7 days May cause [id number] 3 times per [id number] 04/21/2023 active levothyroxineTakeNo date recordedNo form recordedNo frequency recordedNo route recordedNo set duration recordedNo set duration amount recordedactiveNo dosage strength recordedNo dosage strength units of measure recorded 04/21/2023 active levothyroxine (SYNTHROID, LEVOTHROID) 150 MCG tablet Take 150 mcg by mouth daily. 11/27/2022 active Allergies Allergen Reaction Severity Comment Documented Date Source Statu s PERCOCET Hives [facility]YS[facility] Problems Problem Status Onset Date Problem Type Date of Resolution Source Depression active ProblemAct [facility]_PH[facility]O NE Autoimmune thyroiditis active ProblemAct [facility] Viral URI with cough active EncounterDiagnosisAct HHC[facility] Other muscle spasm active 2023-04-19 ProblemAct [facility] Heartburn active ProblemAct [facility]YSON E Headache, unspecified active 2023-04-19 ProblemAct [facility] Other irritable bowel syndrome active ProblemAct [facility]
--- OUTSIDE RECORDS SUMMARY | 2024-01-30 05:50 | XMS_ITS ---
Author Organization [facility] Address [address] [place] [address] Care Team Providers Care Hazardous Substances Engineer Name Role Phone Corry Perez MD Primary Care Provider Unavaila Aravind Feliz Unavailable [phone] [place] SEBASTIAN, Simeon Unavailable Unavailable REASON FOR VISIT screening Encounters Encounter Location Date Provider Diagnosis [facility] Outpatient [address] [place] [id number] 10/12/2023 Aravind Schwartz PLAN OF TREATMENT Next Appt Details Provider Name:Aravind Schwartz , 01/30/2024 07:30:00 AM, [address] [place] [address], [phone],
--- OUTSIDE RECORDS SUMMARY | 2024-01-30 05:50 | XMS_ITS ---
Author Organization [facility] Address [address] [place] [address] Care Team Providers Care Supervisor Electronic Testing Name Role Phone Corry Perez MD Primary Care Provider Unavaila Aravind Feliz Unavailable [phone] Simeon Calvo MD Unavailable Unavailable Encounters Encounter Location Date Provider Diagnosis [facility] [address] [place] [address] 10/07/2023 Aravind Schwartz PLAN OF TREATMENT Next Appt Details Provider Name:Aravind Schwartz , 01/30/2024 07:30:00 AM, [address] [place] [address] , [place], [place], [phone],
--- OUTSIDE RECORDS SUMMARY | 2024-01-30 05:50 | XMS_ITS ---
Author Organization [facility] Address [address] [place] [phone] Care Team Providers Care Student Activities Director Name Role Phone Corry Perez MD Primary Care Provider Unavaila Aravind Feliz Unavailable [phone] Simeon Calvo MD Unavailable Unavailable REASON FOR VISIT REFILL OMEPRAZOLE MEDICATIONS Medication SIG (Take, Route, Fr equency, Duration) Notes Start Date End Date Status Omeprazole 40 MG 1 Orally Once a day for 30 days as needed Active Encounters Encounter Location Date Provider Diagnosis [facility] [address] [facility] [address] [place] [phone] 12/29/2023 Aravind Schwartz PLAN OF TREATMENT Medication Medication Name Sig Start Date Stop Date Notes Omeprazole 40 MG 1 Orally Once a day for 30 days as needed Next Appt Details Provider Name:Aravind Schwartz , 01/30/2024 07:30:00 AM, [address] [place] [address] , [place], [place], [phone],
[2024-01-30] MEDS: Lactated Ringers 1,000 ML 100 ML IVCONT (06:53)
[2024-01-30 07:01] VITALS: BMI 31.6
[2024-01-30 07:02] VITALS: BP 127/81; PULSE 71; RESP 18; TEMP 36.6; O2SAT 98
[2024-01-30 08:27] VITALS: BP 113/59; PULSE 76; RESP 16; TEMP 36.1; O2SAT 99
--- NOTE | 2024-01-30 08:31 | PM.OP ---
Brief Operative Note Date of Service: 01/30/24 Pre-op diagnosis: Screening Post-op diagnosis: other (Diverticulosis) Procedure: Colonoscopy to the cecum Surgeon: Aravind Schwartz MD Anesthesia: MAC Was an Senior Windows Engineer used for this Procedure?: No Estimated blood loss (mL): 0 Pathology: none sent Condition: stable Disposition: PACU
[2024-01-30] MEDS: ondansetron HCL 4 MG/2 ML VIAL IVPUSH (08:37)
[2024-01-30 08:38] VITALS: BP 126/80; PULSE 65; RESP 18; TEMP 36.1; O2SAT 98
--- NOTE | 2024-01-30 08:57 | OP_ITS ---
DATE OF SERVICE: 01/30/2024 SURGEON: Aravind Schwartz MD INDICATIONS: The patient presents for evaluation of colorectal cancer screening. Full consent was obtained from her for this, including risks of bleeding and perforation. PREOPERATIVE DIAGNOSIS: Colorectal cancer screening. POSTOPERATIVE DIAGNOSIS: Colorectal cancer screening, diverticulosis and internal hemorrhoids. PROCEDURE PERFORMED: Colonoscopy to cecum. ESTIMATED BLOOD LOSS: COMPLICATIONS: ANESTHESIA: Monitored anesthesia care. ASSISTANTS: SPECIMENS: DESCRIPTION OF PROCEDURE: The patient was placed in the left lateral decubitus position. The digital rectal exam revealed no abnormalities. The Olympus video pediatric colonoscope was entered into the rectum and advanced easily to the cecum. Once in the cecum, I did identify normal-appearing cecal pouch with appendiceal orifice and a normal-appearing ileocecal valve. The entire cecum and ileocecal valve appeared normal. There was transillumination of light deep in the right lower quadrant. The scope was slowly withdrawn, assessing all mucosal surfaces carefully. Preparation was excellent. I did not visualize any sign of polyps, colitis, or angiodysplasia. There was a mild amount of sigmoid diverticulosis. In the rectum, scope was retroflexed visualizing internal hemorrhoids, but no other pathology. The rectal mucosa appeared normal. The scope was straightened and withdrawn from the patient. She tolerated the procedure well and was returned to the recovery area in stable condition. IMPRESSION: 1. Diverticulosis. 2. Internal hemorrhoids. PLAN: Given today's negative exam, but a family history of her father having had colon polyps and a paternal grandfather having had colon cancer, I would recommend a followup colonoscopy in the next 5 to 7 years for further screening. She will otherwise see me on a p.r.n. basis. She does report that her previous reflux has been much better since her previous gastric bypass surgery, and she now uses omeprazole only about once a week. MD HATTIE Celis/ALLAN / [phone]
== END 2024-01-30 09:03 | disposition home or self-care (01) ==
PROVIDERS: PCP Internal Medicine; Visit Provider Internal Medicine
PROC: 0DJD8ZZ Inspection of Lower Intestinal Tract, Via Natural or Artificial Opening Endoscopic (ICD-10-PCS; CPT 45378; principal; 2024-01-30 07:30)
DX: Z12.11 Encounter for screening for malignant neoplasm of colon (principal); Z83.719 Family history of colon polyps, unspecified; K57.30 Diverticulosis of large intestine without perforation or abscess without bleeding; K64.8 Other hemorrhoids; K58.0 Irritable bowel syndrome with diarrhea; K76.0 Fatty (change of) liver, not elsewhere classified; K21.9 Gastro-esophageal reflux disease without esophagitis; K44.9 Diaphragmatic hernia without obstruction or gangrene; E06.3 Autoimmune thyroiditis; G43.909 Migraine, unspecified, not intractable, without status migrainosus; G47.30 Sleep apnea, unspecified; F32.A Depression, unspecified; Z79.899 Other long term (current) drug therapy; Z98.84 Bariatric surgery status; Z90.49 Acquired absence of other specified parts of digestive tract
CPT/HCPCS: 45378; J2003; J2250; J2405; J2704

== ENCOUNTER 2024-04-26 13:23 | Outpatient (AMB) | payer BC, SELFPAY ==
--- NOTE | 2024-04-26 13:26 | MHC.PC.OV ---
Vital Signs 04/26/24 13:27 Height 5 ft 2 in BMI Reason not done Patient refused/unable BP 122/80 Blood Pressure Location Rt brachial Position Sitting Respiration 17 Pulse 73 Pulse Source Pulse Oximeter Pulse Oximetry (%) 97 Oxygen Delivery Method Room Air Intake Visit Reasons: Annual PE Intake Note: Pt is here today for his annual physical Allergies oxycodone [From PERCOCET] Allergy (Unknown, Verified 04/26/24 13:27) ITCHING Medication List - Last Reconciled 04/26/24 by Corry Perez MD gabapentin 1 tab in am, 1.5 tab at bedtime orally 2 times a day; levothyroxine 150 mcg PO DAILY loperamide (Imodium A-D) 2 mg PO QID PRN omeprazole 40 mg PO BID PRN sertraline 100 mg PO DAILY Tobacco use date assessed: 04/26/24 Dental Screening Dental Screen Date: 04/26/24 Did you have a dental visit in the last 12 months?: No Did you have a dental problem in the last 6 months where you did not have access to dental care?: No Was dental information given to patient?: Patient has dentist HPI Annual PE HPI Details Patient presents for physical PFSH Medical History (Updated 04/26/24 @ 14:02 by Corry Perez MD) Fatty liver Heart murmur History of shingles Hypothyroid Hx of mammogram Normal pelvic exam DJD (degenerative joint disease), lumbar GERD (gastroesophageal reflux disease) Overweight Insomnia IBS (irritable bowel syndrome) Anxiety Depression Epidermal cyst Surgical History (Updated 04/26/24 @ 13:59 by Corry Perez MD) Hx of esophagogastroduodenoscopy (12/24/21) H/O gastric bypass History of esophagogastroduodenoscopy (EGD) Hx of colonoscopy Gastric bypass status for obesity History of hysterectomy History of cholecystectomy Family History Paternal Grandfather History of colon cancer Maternal Grandmother History of breast cancer Mental health disorder Family/Other History of breast cancer Sister Substance use disorder Mental health disorder Maternal Aunt Substance use disorder Maternal Uncle Substance use disorder Paternal Uncle Substance use disorder Maternal Uncle Substance use disorder Mother Mental health disorder Brother Mental health disorder Social History Housing: Apartment Housing Other:: , 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 1. Little interest or pleasure in doing things: several days 2. Feeling down, depressed, or hopeless: several days 3. Trouble falling or staying asleep, or sleeping too much: nearly every day 4. Feeling tired or having little energy: several days 5. Poor appetite or overeating: not at all 6. Feeling bad about yourself - or that you are a failure or have let yourself or your family down: not at all 7. Trouble concentrating on things, such as reading the newspaper or watching television: not at all 8. Moving or speaking so slowly that other people could have noticed. Or the opposite - being so fidgety or restless that you have been moving around a lot more than usual: not at all 9. Thoughts that you would be better off or of hurting yourself in some way: not at all Total score: 6 Depression Screening Interpretation: Negative Depression Screening Done: Yes 42233 - PHQ-9 Billing: Yes Source: Developed by Drs. Aravind Ding, Yokasta Valdez, Denzel Rivera and colleagues, with an educational og from [employer]. Thrive Questionnaire Date Thrive assessed: 04/26/24 I am a: Patient What is your living situation today?: I have a steady place to live Within the past 12 months, did the food you bought not last and you didn't have the money to get more?: Never true Within the past 12 months, did you worry whether your food would run out before you got money to buy more?: Never true Do you have trouble paying for medicines?: No Do you have trouble getting transportation to medical appointments?: No Do you have trouble paying your heating and electricity bill?: No Do you have trouble taking care of your child, family member or friend?: No Do you have trouble with day-to-day activities such as bathing, preparing meals, shopping, managing finances, etc.?: No Are you currently unemployed and looking for a job?: No Are you interested in more education?: No Please select the resources that you would like help with: None Currently or been in a relationship where the following occur: No concerns reported THRIVE Score: 0 AUDIT C Alcohol Use Questionnaire (AUDIT-C) 1. How often do you have a drink containing alcohol?: Never 3. How often do you have six or more drinks on one occasion?: Never Total Score: 0 Score Reviewed/Action Taken: Yes DANIELLE-7 AMB Questionnaire DANIELLE-7 Date DANIELLE - 7 assessed: 04/26/24 Feeling nervous, anxious, or on edge: 1 = Several days Not being able to stop or control worryin = Not at all Worrying too much about different things: 0 = Not at all Trouble relaxin = Not at all Being so restless that it is hard to sit still: 0 = Not at all Becoming easily annoyed or irritable: 0 = Not at all Feeling afraid as if something awful might happen: 0 = Not at all Total DANIELLE-7 score (0-4 normal; 5-9 mild; 10-14 moderate; 15-21 severe): 1 Source: Developed by Drs. Aravind Ding, Yokasta Valdez, Denzel Rivera and colleagues, with an educational og from [employer]. DANIELLE-7 Assessment Billing DANIELLE-7 Assessment Tool: DANIELLE-7 Assessment 90943 Review of Systems Const All systems reviewed & are unremarkable except as noted in HPI and below Reports no additional complaints Eyes Reports no additional complaints ENT Reports no additional complaints Card Reports no additional complaints Resp Reports no additional complaints GI Reports no additional complaints Reports no additional complaints Physical exam (Primary Care) Vital Signs: Last Vital Signs Pulse 73 04/26/24 13:27 Resp 17 04/26/24 13:27 BP 122/80 04/26/24 13:27 Pulse Ox 97 04/26/24 13:27 Oxygen Delivery Method Room Air 04/26/24 13:27 Tobacco/Smoking Status: Tobacco use Status Tobacco use date assessed 04/26/24 04/26/24 13:30 Patient Tobacco Use Status Never used Tobacco 04/26/24 13:30 e-Cigarette/Vaping Use Never Used 04/26/24 13:30 PHQ-9: PHQ-9 Score PHQ-9: Total score 6 04/26/24 13:30 Depression Screening Interpretation: Negative Thrive Assessment: Date of Thrive Assessment Date Thrive assessed 04/26/24 04/26/24 13:30 Currently or been in a relationship where the following occur: No concerns reported Const General: no acute distress HENMT Head: Yes normal to inspection Ears: hearing grossly normal bilaterally Mouth: Normal oral and palatal mucosa present Eyes General: appearance normal, both eyes and all related structures Neck Neck: Yes no lymphadenopathy and Yes supple Resp Effort & Inspection: normal respiratory effort Auscultation: clear to auscultation bilaterally Cardio Rhythm: regular rhythm Heart sounds: S1 normal heart sound present and S2 normal heart sound present GI Inspection: Yes normal to inspection Palpation (GI): Soft to palpation Percussion: Yes normal to percussion Auscultation: normal bowel sounds Coding Level of Care Code Est Pt Prev Care 40-64y(15479) Diagnoses Hypothyroid E03.9 Annual physical exam Z00.00 Postmenopausal Z78.0 H/O gastric bypass Z98.84 Additional Codes DANIELLE-7 Assessment Billing - DANIELLE-7 Assessment Tool: DANIELLE-7 Assessment 22581 ([id number]) PHQ-9 - 98880 - PHQ-9 Billing: Yes ([id number]) Assessment & Plan Assessment & Plan (1) Hypothyroid: Comment: f/u Dr Cabezas Code(s): E03.9 - Hypothyroidism, unspecified Category: Medical Plan: Continue levothyroxine check TSH (2) Annual physical exam: Code(s): Z00.00 - Encounter for general adult medical examination without abnormal findings Category: Medical Plan: Well-balanced diet regular physical activity discussed with the patient, she is up-to-date with the mammogram had negative colonoscopy last July (3) Postmenopausal: Comment: Patient had a total hysterectomy and bilateral oophorectomy in 30's, never took hormone replacement therapy Code(s): Z78.0 - Asymptomatic menopausal state Category: Medical Plan: Check DEXA. (4) H/O gastric bypass: Comment: Mar 2022 Code(s): Z98.84 - Bariatric surgery status Category: Surgical Plan: Continue supplemental multivitamin Orders: Orders Complete Blood Count Auto Diff Today E03.9 - Hypothyroidism, unspecified, Z00.00 - Encounter for general adult medical examination without abnormal findings TSH reflex Free T4 Today E03.9 - Hypothyroidism, unspecified, Z00.00 - Encounter for general adult medical examination without abnormal findings IRON PROFILE Today Z78.0 - Asymptomatic menopausal state, Z98.84 - Bariatric surgery status Comprehensive [place]. Panel Fast 1 Year E03.9 - Hypothyroidism, unspecified, Z00.00 - Encounter for general adult medical examination without abnormal findings, Z98.84 - Bariatric surgery status Complete Blood Count Auto Diff 1 Year E03.9 - Hypothyroidism, unspecified, Z00.00 - Encounter for general adult medical examination without abnormal findings, Z98.84 - Bariatric surgery status TSH reflex Free T4 1 Year E03.9 - Hypothyroidism, unspecified, Z00.00 - Encounter for general adult medical examination without abnormal findings, Z98.84 - Bariatric surgery status IRON PROFILE 1 Year E03.9 - Hypothyroidism, unspecified, Z00.00 - Encounter for general adult medical examination without abnormal findings, Z98.84 - Bariatric surgery status Comprehensive [place]ring. Panel Fast Today E03.9 - Hypothyroidism, unspecified, Z00.00 - Encounter for general adult medical examination without abnormal findings Lipid Panel Today E03.9 - Hypothyroidism, unspecified, Z00.00 - Encounter for general adult medical examination without abnormal findings Vitamin D 25-OH Total Today E03.9 - Hypothyroidism, unspecified, Z00.00 - Encounter for general adult medical examination without abnormal findings UA w Microscopic Today E03.9 - Hypothyroidism, unspecified, Z00.00 - Encounter for general adult medical examination without abnormal findings Vitamin B12 and Folate Today Z78.0 - Asymptomatic menopausal state, Z98.84 - Bariatric surgery status Lipid Panel 1 Year E03.9 - Hypothyroidism, unspecified, Z00.00 - Encounter for general adult medical examination without abnormal findings, Z98.84 - Bariatric surgery status Vitamin B12 and Folate 1 Year E03.9 - Hypothyroidism, unspecified, Z00.00 - Encounter for general adult medical examination without abnormal findings, Z98.84 - Bariatric surgery status Vitamin D 25-OH Total 1 Year E03.9 - Hypothyroidism, unspecified, Z00.00 - Encounter for general adult medical examination without abnormal findings, Z98.84 - Bariatric surgery status XR DEXA axial skeleton Today Z78.0 - Asymptomatic menopausal state Medications: Refilled gabapentin 1 tab in am, 1.5 tab at bedtime orally 2 times a day; 225 tabs 3RF levothyroxine 150 mcg PO DAILY 90 tabs 3RF sertraline 100 mg PO DAILY 30 tabs 3RF
[2024-04-26 13:27] VITALS: BP 122/80; PULSE 73; RESP 17; O2SAT 97
--- OUTSIDE RECORDS SUMMARY | 2024-04-26 16:57 | XMS_ITS ---
Author Organization [facility] Address [address] [place] [id number] Care Team Providers Care Clinic Mgr Name Role Phone Corry Perez MD Primary Care Provider Aravind Keys [phone] Simeon Calvo MD Unavailable REASON FOR VISIT REFILL OMEPRAZOLE Medications Medication SIG (Take, Route, Fr equency, Duration) Notes Start Date End Date Status Omeprazole 40 MG 1 Orally Once a day for 30 days as needed Active Encounters Encounter Location Date Provider Diagnosis [facility] [address] [place] [id number] 12/29/2023 Aravind Schwartz Plan Of Treatment Medication Medication Name Sig Start Date Stop Date Notes Omeprazole 40 MG 1 Orally Once a day for 30 days as needed Progress Notes * PALMA BERGMAN ADOB: 4 (48 yo F)Acc No.[id number]:12/29/2023 Patient:?PACHECO, PALMA Rocha :1975???Age:48 Y???Sex:Female Address:[address] [place] [address] [place] [address] * Refills? Refill Omeprazole Capsule Delayed Release, 40 MG, Orally, 30, 1, Once a day, 30 days, Refills=6 * true * Date:? Generated for David vee/Torri/eTransmitting on:?04/26/2024 04:57 PM EDT
--- OUTSIDE RECORDS SUMMARY | 2024-04-26 16:57 | XMS_ITS ---
Author Organization [facility] Address [address] [place] [address] Care Team Providers Care Practice Director Name Role Phone Corry Perez MD Primary Care Provider Unavaila Aravind Feliz Unavailable [phone] Simeon Calvo MD Unavailable Unavailable REASON FOR VISIT screening Problems Problem Type SNOMED Code ICD Code Onset Dates Problem Status W/U Status Risk Notes Problem Diverticular disease of colon ([id number]) Diverticulosis of large intestine without perforation or abscess without bleeding (K57.30) Active confirmed Encounters Encounter Location Date Provider Diagnosis [facility] [address] [place] [id number] 01/30/2024 Aravind Schwartz Colon cancer scree abdon [...] PALMA BERGMAN ADOB: 4 (48 yo F)Acc No.[id number]:01/30/2024 COLON WITH MAC Patient:?PALMA BERGMAN Provider:?Aravind Schwartz MD :1975???Age:48 Y???Sex:Female D ate:01/30/2024 Address:[address] [place], [place] [id number] Pcp:Corry Perez MD Subjective: * Chief Complaints: * ???1. Screening. * Medical History:? Objective: * Vitals:? Assessment: * Assessment: 1.?Colon cancer screening - Z12.11 (Primary)???2.?Family history of colon cancer - Z80.0???3.?FH: colon polyps - Z83.719???4.?Diverticulosis of large intestine without perforation or abscess without bleeding - K57.30???5.?Other hemorrhoids - K64.8??? Plan: * Treatment: * Procedure Codes:?10095 DIAGN OSTIC COLONOSCOPY, Modifiers: 33 * * The named appointment provid er may or may not be the originator of this progress note, and it is not deemed complete until electronically signed by the appointment provider. Sign off status: Pending * Provider:?Aravind Schwartz MD Date:? 024 Generated for David vee/Torri/eTransmitting on:?04/26/2024 04:57 PM EDT
--- OUTSIDE RECORDS SUMMARY | 2024-04-26 16:58 | XMS_ITS | Clinical Summary ---
Author Organization [facility] Address [address] [place] [address] Care Team Providers Care In Home Aide Name Role Phone Pcp, No Primary Care Provider Unavailabl e Allergies Active Allergy Reactions Criticality Noted Date Comments Oxycodone-Acetaminophen Hives Medium 11/24/2022 Medications Medication Sig Dispensed Refills Start Date End Date Status gabapentin (NEURONTIN) 600 MG tablet TAKE 1 TABLET BY MOUTH IN THE MORNING AND 1 & 1/2 (ONE & ONE-HALF) TABLETS AT BEDTIME 11/04/2022 Active OMEprazole (PriLOSEC) 40 MG capsule Take 40 mg by mouth 2 (two) times a day. 08/31/2022 Active levothyroxine (SYNTHROID, LEVOTHROID) 150 MCG tablet Take 150 mcg by mouth daily. 11/04/2022 Active sertraline (ZOLOFT) 100 MG tablet Take 100 mg by mouth daily. 11/02/2022 Active brompheniramine-pse udoephedrine-DM (BROMFED DM) 30-2-10 MG/5ML syrupIndications:Vi ral URI with cough Take 10 mL by mouth 4 (four) times a day as needed for congestion or cough. 120 mL 11/24/2022 Active benzonatate (TESSALON) 200 MG capsuleIndications: Viral URI with cough Take 1 capsule (200 mg total) by mouth 3 (three) times a day as needed for cough. 30 capsule 10/01/2023 Active fluticasone (FloNASE) 50 mcg/spray nasal sprayIndications:Vi ral URI with cough 1 spray into each nostril daily. 1 each 10/01/2023 Active Active Problems No known active problems Social History Tobacco Use Types Packs/Day Years Used Date Smoking Tobacco: Never Assessed Sex and Gender Information Value Date Recorded Sex Assigned at Female 11/24/2022 10:32 AM EDT Gender Identity Not on file Sexual Orientation Not on file Last Filed Vital Signs Vital Sign Reading Time Taken Comments Blood Pressure 165/95 10/01/2023 10:20 AM EDT Pulse 84 10/01/2023 10:20 AM EDT Temperature 35.8 ??C (96.5 ??F) 10/01/2023 10:20 AM E DT Respiratory Rate - - Oxygen Saturation 96% 10/01/2023 10:20 AM EDT Inhaled Oxygen Concentration - - Weight - - Height - - Body Mass Index - - Plan of Treatment Health Maintenance Due Date Last Done Comments Hepatitis C Virus Screening 1975 HIV Screening 1986 DTaP/Tdap/Td Vaccines (1 - Tdap) 1992 Hepatitis B Vaccines (1 of 3 - 19+ 3-dose series) 1992 Pap Smear (Ages 21-65) 1994 Mammogram 2013 Colonoscopy 2018 Pneumococcal Vaccines 50+ (1 of 1 - PCV) 06/26/2023 Zoster (Shingles) Vaccine (1 of 2) 06/26/2023 Influenza Vaccine 09/15/2023 COVID-19 Vaccine ( - 2023-2 5 season) 2023 11/11/2020, 03/18/2020, 02/26/2020 Pneumococcal Vaccine: Pediatric (0-5 Years) and At-Risk Patients (6 to 49 Years) Aged Out No longer eligible b ased on patient's age to complete this topic Care Teams In Home Aide Relationship Specialty Start Date End Date Pcp, No PCP - General General Medicine 11/09/22
--- OUTSIDE RECORDS SUMMARY | 2024-04-26 16:58 | XMS_ITS ---
Author Organization [facility] Address [address] [place] [address] Care Team Providers Care Counseling Specialist Name Role Phone Ana SEBASTIAN, Corry Primary Care Provider Unavaila Aravind Feliz Unavailable [phone] Simeon Calvo MD Unavailable Unavailable REASON FOR VISIT screening Encounters Encounter Location Date Provider Diagnosis [facility] [address] [place] [phone] 10/12/2023 Aravind Schwartz Plan Of Treatment No Information Progress Notes * PALMA BERGMAN ADOB: [birth year] (48 yo F)Acc No.[id number]:10/12/2023 COLON WITH MAC Patient:PALMA HATFIELD Provider:?Aravind Schwartz MD :1975???Age:48 Y???Sex:Female D ate:10/12/2023 Address:[address] [place] [address] [facility] Pcp:Corry Perez MD Subjective: * Chief Complaints: * ???1. Screening. * Medical History:? Objective: * Vitals:? Assessment: Plan: * Treatment: * * The named appointment provid er may or may not be the originator of this progress note, and it is not deemed complete until electronically signed by the appointment provider. Sign off status: Pending * Provider:?Aravind Schwartz MD Date:? 024 Generated for Richyi nanda/Camilleg/eTransmitting on:?04/26/2024 04:57 PM EDT
--- OUTSIDE RECORDS SUMMARY | 2024-04-26 16:58 | XMS_ITS | Patient Health Record ---
Author Organization [facility] Address [address] [place] [phone] Care Team Providers Care Employee Service Officer Name Role Phone Corry Perez MD Primary Care Provider Unavaila Aravind Feliz Unavailable [phone] Simeon Calvo MD Unavailable Unavailable Allergies Allergen (clinical drug ingredient) Drug/Non Drug Allergy documented on EMR Reaction Allergy Type Onset Date Status acetaminophen / oxycodone Percocet Unknown Drug Allergy Active Reason For Referral No Information Medications Medication SIG (Take, Route, Frequency, Duration) Notes [...] and 6PM for 30 day(s) 10/03/2019 Not-Taking Immunizations Vaccine Route Administration Date Status Comme nts Influenza Unknown 11/21/2017 Administered Influenza Unknown 02/14/2019 Administered Influenza Unknown 12/16/2019 Administered Influenza Unknown 12/30/2020 Administered Influenza Unknown 12/07/2022 Administered Social History Alcohol Screen Question Answer Notes Did you have a drink containing alcohol in the p ast year? No Points 0 Interpretation Negative Section Notes: Nonsmoker; no sig alcohol Nonsmoker; no sig alcohol Nonsmoker; no sig alcohol Nonsmoker; no sig alcohol Nonsmoker; no sig alcohol Nonsmoker; no sig alcohol Nonsmoker; no sig alcohol Nonsmoker; no sig alcohol Nonsmoker; no sig alcohol Nonsmoker; no sig alcohol Nonsmoker; no sig alcohol Nonsmoker; no sig alcohol Problems Problem Type SNOMED Code ICD Code Onset Dates Problem Status W/U Status Risk Notes Problem Colon cancer screening (671083506) Colon cancer screening (Z12.11) Active confirmed Problem Diverticular disease of colon (694360337) Diverticulosis of large intestine without perforation or abscess without bleeding (K57.30) Active confirmed Problem 873084612 Irritable bowel syndrome with diarrhea (K58.0) Active confirmed Problem 28791900 Heartburn (R12) Active confirmed Problem 577851276 Gastroesophageal reflux disease without esophagitis (K21.9) Active confirmed Problem 475661041 Elevated liver enzymes (R74.8) Active confirmed Problem 023615921 Fatty liver (K76.0) Active confirmed Problem 450817751 Gastroesophageal reflux disease, esophagitis presence not specified (K21.9) Active confirmed Problem Gastritis (9504468) Gastritis (K29.70) Active confirmed Vital Signs Temperature 97.7 degrees Fahrenheit 07/06/2023 Blood pressure diastolic 00 mm Hg 07/06/2023 Height 62 in 07/06/2023 Blood pressure systolic 000 mm Hg 07/06/2023 Weight 174 lbs 07/06/2023 BMI 31.82 kg/m2 07/06/2023 Encounters Encounter Location Date Provider Diagnosis [facility] Outpatient [address] [place] [phone] 01/30/2024 Aravind Schwartz Colon cancer screeni ng Z12.11 ; Family history of colon cancer Z80.0 ; FH: colon polyps Z83.719 ; Diverticulosis of large intestine without perforation or abscess without bleeding K57.30 and Other hemorrhoids K64.8 [facility] [address] [place] [phone] 07/06/2023 Aravind Schwartz Gastroesophageal ref lux disease without esophagitis K21.9 and Colon cancer screening Z12.11 [facility] [address] [place] [phone] 05/13/2023 Aravind Schwartz [facility] [address] [place] [phone] 10/07/2023 Aravind Schwartz [facility] [address] [place] [phone] 12/29/2023 Aravind Schwartz Assessments Encounter Date Diagnosis (ICD Code) Assessment Notes Treatment Notes Treatment Clinical Notes Section Notes 01/30/2024 Colon cancer screening (ICD-10 - Z12.11) 01/30/2024 Family history of colon cancer (ICD-10 - Z80.0) 07/06/2023 Colon cancer screening (ICD-10 - Z12.11) Overall, Jessica appears well and seems to have had a very good clinical response to her gastric bypass surgery in regard to both her weight loss and her reflux. I advised her to continue to use any type of antacid or acid suppression medication on a p.r.n. basis for reflux symptoms. At this point I don't think she would need any further evaluation in that regard and it does not sound like she needs to be on any type of daily regimen for acid suppression. I did recommend a colonoscopy for screening purposes given her age, her last exam being just about 10 years ago, and a family history of colorectal polyps and cancer. We did review the rationale for this in regard to colon cancer prevention. Full consent has been obtained for this, including risks of bleeding and perforation. The procedure fully note monitored anesthesia care. Jessica was very comfortable with this plan. Thank you again for allowing me to participate in Jessica's care. I shall continue to keep you advised of her progress. 07/06/2023 Gastroesophageal reflux disease without esophagitis (ICD-10 - K21.9) Overall, Jessica appears well and seems to have had a very good clinical response to her gastric bypass surgery in regard to both her weight loss and her reflux. I advised her to continue to use any type of antacid or acid suppression medication on a p.r.n. basis for reflux symptoms. At this point I don't think she would need any further evaluation in that regard and it does not sound like she needs to be on any type of daily regimen for acid suppression. I did recommend a colonoscopy for screening purposes given her age, her last exam being just about 10 years ago, and a family history of colorectal polyps and cancer. We did review the rationale for this in regard to colon cancer prevention. Full consent has been obtained for this, including risks of bleeding and perforation. The procedure fully note monitored anesthesia care. Jessica was very comfortable with this plan. Thank you again for allowing me to participate in Jessica's care. I shall continue to keep you advised of her progress. 01/30/2024 FH: colon polyps (ICD-10 - Z83.719) 01/30/2024 Diverticulosis of large intestine without perforation or abscess without bleeding (ICD-10 - K57.30) 01/30/2024 Other hemorrhoids (ICD-10 - K64.8) Plan Of Treatment Pending Test Test Name Order Date Esophageal Motility study 06/13/2019 LIVER PROFILE 01/17/2015 24 HR pH PROBE 06/13/2019 Future Test Test Name Order Date UPPER GI ENDOSCOPY 03/27/2013 COLONOSCOPY 03/27/2013 UPPER GI ENDOSCOPY 04/10/2019 UPPER GI ENDOSCOPY 10/14/2021 COLONOSCOPY 07/06/2023 Insurance Providers Payer Name Payer Address Payer Phone Subscriber Number Group Number Insured Name Patient Relationship to Insured Coverage Start Date Coverage End Date [facility] [address] [place], [place] [phone] [id number] JESSICA BERGMAN Self - patient is the insured Medical (General) History Medical History History ICD Code Fatty liver--liver [...] Shah's, no celiac disease Migraines Insomnia Denies [place],DM,CVA,Lung disease,renal dise ase Depression IBS with Diarrhea--could [...] x2 Gastric sleeve surgery- 8--Dr. Calvo at [facility]--started at 256# and is now 190# as of 01/25/18, 176# in 03/2019; but 207# in 09/2021 OV Gastric bypass 03/2022
== END 2024-04-26 14:02 | disposition home or self-care (01) ==
LOC: HO.HMCC 13:23
PROVIDERS: PCP Internal Medicine; Visit Provider Internal Medicine
DX: E03.9 Hypothyroidism, unspecified (principal); Z00.00 Encounter for general adult medical examination without abnormal findings; Z78.0 Asymptomatic menopausal state; Z98.84 Bariatric surgery status

== ENCOUNTER → 2024-04-26 13:23 | Outpatient (BNVA) | payer BC, SELFPAY | PROVIDERS: PCP Internal Medicine; Visit Provider Internal Medicine | DX: Z00.00 Encounter for general adult medical examination without abnormal findings (principal); E03.9 Hypothyroidism, unspecified; Z78.0 Asymptomatic menopausal state; Z79.899 Other long term (current) drug therapy; Z98.84 Bariatric surgery status | CPT/HCPCS: 96127 ==

== ENCOUNTER 2024-06-01 10:51 | Outpatient (REF) | payer BC, SELFPAY ==
--- NOTE | ~2024-06-01 | MM_ITS ---
EXAMINATION: DXA BONE DENSITY AXIAL HISTORY: Z78.0 - Asymptomatic menopausal state TECHNIQUE: Lovli Dual energy absorptiometry (DEXA) of the lumbar spine, total left hip, and femoral neck was performed. COMPARISON: There are no prior studies for comparison. FINDINGS: The bone mineral density of the lumbar spine is 0.990 with a T-score of -1.6, and a Z-score of -1.7. This is indicative of osteopenia. The bone mineral density of the left total hip is 0.905 with a T-score of -0.8, and a Z-score of -0.7. This is indicative of normal bone mineral density. The bone mineral density of the left femoral neck is 0.863 with a T-score of -1.3, and a Z-score of -0.8. This is indicative of osteopenia. FRACTURE RISK: The FRAX index suggests a risk of major osteoporotic fracture of 4.3%, and of hip fracture 0.3%. MM/XR DEXA axial skeleton IMPRESSION: Based on bone mineral density, and according to World Health Organization (WHO) criteria, the diagnosis is consistent with osteopenia. All bone density values are in grams per centimeter squared (g/cm2). Statistically, 68% of repeat scans fall within 1 SD (+/- 0.010 g/cm2 for AP spine L1-L4) and 1 SD (+/- 0.012 g/cm2 for femur total) FRAX is a trademark of the [employer], a World Health Organization (WHO) Collaborating Center. Electronically signed by: Aravind Musa MD 06/01/2024 12:21 PM EDT
--- OUTSIDE RECORDS SUMMARY | 2024-06-01 11:56 | XMS_ITS ---
Author Organization [facility] Address [address] [place] [phone] Care Team Providers Care Gusset Ripper Name Role Phone Corry Perez MD Primary Care Provider Aravind Keys [phone] Simeon Calvo MD Unavailable REASON FOR VISIT REFILL OMEPRAZOLE Medications Medication SIG (Take, Route, Fr equency, Duration) Notes Start Date End Date Status Omeprazole 40 MG 1 Orally Once a day for 30 days as needed Active Encounters Encounter Location Date Provider Diagnosis [facility] [address] [place] [phone] 12/29/2023 Aravind Schwartz Plan Of Treatment Medication Medication Name Sig Start Date Stop Date Notes Omeprazole 40 MG 1 Orally Once a day for 30 days as needed Progress Notes * PALMA BERGMAN ADOB: [birth year] (48 yo F)Acc No.[id number]:12/29/2023 Patient:?PACHECO, PALMA Rocha :1975???Age:48 Y???Sex:Female Address:[address] [place] [address] [place] [address] * Refills? Refill Omeprazole Capsule Delayed Release, 40 MG, Orally, 30, 1, Once a day, 30 days, Refills=6 * true * Date:? Generated for David vee/Torri/eTransmitting on:?06/01/2024 11:56 AM EDT
--- OUTSIDE RECORDS SUMMARY | 2024-06-01 11:56 | XMS_ITS | Clinical Summary ---
Author Organization [facility] Address [address] [place] [address] Care Team Providers Care Modern Greek Studies Professor Name Role Phone Pcp, No Primary Care Provider Unavailabl e Allergies Active Allergy Reactions Criticality Noted Date Comments Oxycodone-Acetaminophen Hives Medium 11/24/2022 Medications gabapentin (NEURONTIN) 600 MG tablet TAKE 1 TABLET BY MOUTH IN THE MORNING AND 1 & 1/2 (ONE & ONE-HALF) TABLETS AT BEDTIME 3 Active OMEprazole (PriLOSEC) 40 MG capsule Take 40 mg by mouth 2 (two) times a day. 3 Active levothyroxine (SYNTHROID, LEVOTHROID) 150 MCG tablet Take 150 mcg by mouth daily. 3 Active sertraline (ZOLOFT) 100 MG tablet Take 100 mg by mouth daily. 3 Active brompheniramine -pseudoephedrin e-DM (BROMFED DM) 30-2-10 MG/5ML syrupIndication s:Viral URI with cough Take 10 mL by mouth 4 (four) times a day as needed for congestion or cough. 120 mL 3 Active benzonatate (TESSALON) 200 MG capsuleIndicati ons:Viral URI with cough Take 1 capsule (200 mg total) by mouth 3 (three) times a day as needed for cough. 30 capsule 4 Active fluticasone (FloNASE) 50 mcg/spray nasal sprayIndication s:Viral URI with cough 1 spray into each nostril daily. 1 each 4 Active Active Problems No known active problems Social History Tobacco Use Types Packs/Day Years Used Date Smoking Tobacco: Never Assessed Comments Unknown Sex and Gender Information Value Date Recorded Sex Assigned at Female 11/24/2022 10:32 AM EDT Legal Sex Female 6:56 PM EST Gender Identity Not on file Sexual Orientation [...] 2) 06/26/2023 Influenza Vaccine 09/15/2023 COVID-19 Vaccine (4 - 2023-2 5 season) 2023 11/11/2020, 03/18/2020, 02/26/2020 Pneumococcal Vaccine: Pediatric (0-5 Years) and At-Risk Patients (6 to 49 Years) Aged Out No longer eligible b ased on patient's age to complete this topic Insurance [facility] [place] [id number] Care Teams Modern Greek Studies Professor Relationship Specialty Start Date End Date Pcp, No PCP - General General Medicine 11/09/22
--- OUTSIDE RECORDS SUMMARY | 2024-06-01 11:56 | XMS_ITS ---
Author Organization [facility] Address [address] [place] [address] Care Team Providers Care Hull And Deck Remover Name Role Phone Corry Perez MD Primary Care Provider Unavaila Aravind Feliz Unavailable [phone] Simeon Calvo MD Unavailable Unavailable REASON FOR VISIT screening Problems Problem Type SNOMED Code ICD Code Onset Dates Problem Status W/U Status Risk Notes Problem Diverticular disease of colon (598560259) Diverticulosis of large intestine without perforation or abscess without bleeding (K57.30) Active confirmed Encounters Encounter Location Date Provider Diagnosis [facility] Outpatient [address] [place] [phone] 01/30/2024 Aravind Schwartz Colon cancer scree abdon [...] PALMA BERGMAN ADOB: [birth year] (48 yo F)Acc No.[id number]:01/30/2024 COLON WITH MAC Patient:?PALMA BERGMAN Provider:?Aravind Schwartz MD :1975???Age:48 Y???Sex:Female D ate:01/30/2024 Address:[address] [place], [place] [id number] Pcp:Corry Perez MD Subjective: * Chief Complaints: * ???1. Screening. * Medical History:? Objective: * Vitals:? Assessment: * Assessment: 1.?Colon cancer screening - Z12.11 (Primary)???2.?Family history of colon cancer - Z80.0???3.?FH: colon polyps - Z83.719???4.?Diverticulosis of large intestine without perforation or abscess without bleeding - K57.30???5.?Other hemorrhoids - K64.8??? Plan: * Treatment: * Procedure Codes:?48424 DIAGN OSTIC COLONOSCOPY, Modifiers: 33 * * The named appointment provid er may or may not be the originator of this progress note, and it is not deemed complete until electronically signed by the appointment provider. Sign off status: Pending * Provider:?Aravind Schwartz MD Date:? 024 Generated for David vee/Torri/eTransmitting on:?06/01/2024 11:55 AM EDT
--- OUTSIDE RECORDS SUMMARY | 2024-06-01 11:56 | XMS_ITS ---
Author Organization [facility] Address [address] [place] [address] Care Team Providers Care Local Delivery Driver Name Role Phone Ana SEBASTIAN, Corry Primary Care Provider Unavaila Aravind Feliz Unavailable [phone] Simeon Calvo MD Unavailable Unavailable REASON FOR VISIT screening Encounters Encounter Location Date Provider Diagnosis [facility] Outpatient [address] [place] [phone] 10/12/2023 Aravind Schwartz Plan Of Treatment No Information Progress Notes * PALMA BERGMAN ADOB: [birth year] (48 yo F)Acc No.[id number]:10/12/2023 COLON WITH MAC Patient:PALMA HATFIELD Provider:?Aravind Schwartz MD :1975???Age:48 Y???Sex:Female D ate:10/12/2023 Address:[address] [place] [address] [facility] Pcp:Corry Perez MD Subjective: * Chief Complaints: [...] MD Date:? 024 Generated for Richyi nanda/Camilleg/eTransmitting on:?06/01/2024 11:56 AM EDT
--- OUTSIDE RECORDS SUMMARY | 2024-06-01 11:56 | XMS_ITS | Patient Health Record ---
Author Organization [facility] Address [address] [place] [address] Care Team Providers Care Solar Resource Assessor Name Role Phone Corry Perez MD Primary Care Provider Unavaila Aravind Feliz Unavailable [phone] Simeon Calvo MD Unavailable Unavailable Allergies Allergen [...] Status Risk Notes Problem Colon cancer screening (970226337) Colon cancer screening (Z12.11) Active confirmed Problem Diverticular disease of colon (777726640) Diverticulosis of large intestine without perforation or abscess without bleeding (K57.30) Active confirmed Problem 105851959 Irritable bowel syndrome with diarrhea (K58.0) Active confirmed Problem 94304508 Heartburn (R12) Active confirmed Problem 423528221 Gastroesophageal reflux disease without esophagitis (K21.9) Active confirmed Problem 608009070 Elevated liver enzymes (R74.8) Active confirmed Problem 625744802 Fatty liver (K76.0) Active confirmed Problem 046454002 Gastroesophageal reflux disease, esophagitis presence not specified (K21.9) Active confirmed Problem Gastritis (8570373) Gastritis (K29.70) Active confirmed Vital Signs Temperature 97.7 degrees Fahrenheit 07/06/2023 Blood pressure diastolic 00 mm Hg 07/06/2023 Height 62 in 07/06/2023 Blood pressure systolic 000 mm Hg 07/06/2023 Weight 174 lbs 07/06/2023 BMI 31.82 kg/m2 07/06/2023 Encounters Encounter Location Date Provider Diagnosis [facility] [place] [address] [place] [phone] 01/30/2024 Aravind Schwartz Colon cancer screeni ng Z12.11 ; Family history of colon cancer Z80.0 ; FH: colon polyps Z83.719 ; Diverticulosis of large intestine without perforation or abscess without bleeding K57.30 and Other hemorrhoids K64.8 [facility] [address] [place] [phone] 07/06/2023 Aravind Schwartz Gastroesophageal ref lux disease without esophagitis K21.9 and Colon cancer screening Z12.11 [facility] [address] [place] [phone] 10/07/2023 Aravind Schwartz [facility] [address] [place] [phone] 12/29/2023 Aravind Schwartz Assessments Encounter Date Diagnosis [...] Insured Coverage Start Date Coverage End Date [facility] [address] [place], [place] [id number] JESSICA BERGMAN Self - patient is [...] Shah's, no celiac disease Migraines Insomnia Denies [place],DM,CVA,Lung disease,renal dise ase Depression IBS with Diarrhea--could [...] x2 Gastric sleeve surgery- 8--Dr. Calvo at [facility]--started at 256# and is now 190# as of 01/25/18, 176# in 03/2019; but 207# in 09/2021 OV Gastric bypass 03/2022
== END 2024-06-01 10:52 | disposition home or self-care (01) ==
LOC: HO.MAMMO 10:51
PROVIDERS: PCP Internal Medicine; Visit Provider Internal Medicine
DX: Z13.820 Encounter for screening for osteoporosis (principal); Z78.0 Asymptomatic menopausal state
CPT/HCPCS: 77080

== ENCOUNTER → 2024-06-01 11:30 | Outpatient (BNV) | payer BC, SELFPAY | PROVIDERS: PCP Internal Medicine; Visit Provider Radiology Diagnostic Radiology | DX: E28.39 Other primary ovarian failure (principal) | CPT/HCPCS: 77080 ==

== ENCOUNTER 2024-08-22 13:34 | Outpatient (AMB) | payer BC, SELFPAY ==
--- OUTSIDE RECORDS SUMMARY | 2024-01-30 03:30 | XMS_ITS ---
Author Organization [facility] Address [address] [place] [address] Care Team Providers Care Rechecker Name Role Phone Corry Perez MD Primary Care Provider Unavaila Aravind Feliz Unavailable [phone] Simeon Calvo MD Unavailable Unavailable REASON FOR VISIT screening Problems Problem Type SNOMED Code ICD Code Onset Dates Problem Status W/U Status Risk Notes Problem Diverticular disease of colon (768684248) Diverticulosis of large intestine without perforation or abscess without bleeding (K57.30) Active confirmed Encounters Encounter Location Date Provider Diagnosis [facility] [place] [address] [place] [phone] 01/30/2024 Aravind Schwartz Colon cancer scree abdon [...] PALMA BERGMAN ADOB: 4 (49 yo F)Acc No.[id number]:01/30/2024 COLON WITH MAC Patient: PALMA WALLER Provider: Meli Schwartz MD :1975 A ge:48 Y S ex:Female Date:01/30/2024 Address:[address] [place] [address] Pcp:Corry Perez MD Subjective: * Chief Complaints: [...] 04/01/2023 Generated for David vee/Torri/Dkitting on: 0 08/22/2024 02:24 PM EDT
[2024-08-22 13:45] VITALS: BP 134/70; PULSE 97; RESP 18; TEMP 36.7; O2SAT 97
--- NOTE | 2024-08-22 13:45 | MHC.PC.OV ---
Vital Signs 08/22/24 13:45 Height 5 ft 2 in BMI Reason not done Patient refused/unable BP 134/70 Blood Pressure Location Lt brachial Position Sitting Respiration 18 Pulse 97 Pulse Source Pulse Oximeter Temp 98.1 F Temp Source Oral Pulse Oximetry (%) 97 Oxygen Delivery Method Room Air Intake Visit Reasons: shaking episodes Intake Note: Pt is here today for a sick visit. Pt c/o fuzzy feeling in her head and shakiness. Allergies oxycodone (From PERCOCET) Allergy (Unknown, Verified 08/22/24 13:48) ITCHING Medication List - Last Reconciled 08/22/24 by Corry Perez MD gabapentin 1 tab in am, 1.5 tab at bedtime orally 2 times a day; levothyroxine 150 mcg PO DAILY loperamide (Imodium A-D) 2 mg PO QID PRN omeprazole 40 mg PO BID PRN sertraline 100 mg PO DAILY Tobacco use date assessed: 08/22/24 Dental Screening Dental Screen Date: 04/26/24 HPI shaking episodes HPI Details Patient presents with a complaint of 2 episodes of feeling off balance and stumbling into the wall but not falling down when walking last week. Patient's noticed patient having slurred speech that lasted for few minutes last week. Patient did not noticed any weakness or numbness in extremities headaches change in the vision nausea vomiting fever chills chest pains palpitations dyspnea on exertion. She complains of chronic insomnia and has been waking up a lot at night because of her new dogs. Chronic anxiety and depression are stable on current medications and patient has been taking levothyroxine for hypothyroidism. She has recurrent episodes of hands tremor usually relieved with a glass of orange juice. patient denies increased sweating palpitations nausea or vomiting during the episodes. [facility] Medical History (Updated 08/22/24 @ 14:26 by Corry Perez MD) Tremor Fatty liver Heart murmur History of shingles Hypothyroid Hx of mammogram Normal pelvic exam DJD (degenerative joint disease), lumbar GERD (gastroesophageal reflux disease) Overweight Insomnia IBS (irritable bowel syndrome) Anxiety Depression Epidermal cyst Surgical History Hx of esophagogastroduodenoscopy (12/24/21) H/O gastric bypass History of esophagogastroduodenoscopy (EGD) Hx of colonoscopy Gastric bypass status for obesity History of hysterectomy History of cholecystectomy Family History Paternal Grandfather History of colon cancer Maternal Grandmother History of breast cancer Mental health disorder Family/Other History of breast cancer Sister Substance use disorder Mental health disorder Maternal Aunt Substance use disorder Maternal Uncle Substance use disorder Paternal Uncle Substance use disorder Maternal Uncle Substance use disorder Mother Mental health disorder Brother Mental health disorder Social History Housing: Apartment Housing Other:: , 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, 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 Are you a primary acute care nursing assistant to a significant other at home: No Do you presently have visiting nurse or other home services: No Alcohol intake: never Patient Tobacco Use Status: Never used Tobacco e-Cigarette/Vaping Use: Never Used service: No Current occupational status: employed Cognitive needs: No Hearing needs: No Vision needs: No Questionnaire Thrive Questionnaire Date Thrive assessed: 04/26/24 I am a: Patient What is your living situation today?: I have a steady place to live Within the past 12 months, did the food you bought not last and you didn't have the money to get more?: Never true Within the past 12 months, did you worry whether your food would run out before you got money to buy more?: Never true Do you have trouble paying for medicines?: No Do you have trouble getting transportation to medical appointments?: No Do you have trouble paying your heating and electricity bill?: No Do you have trouble taking care of your child, family member or friend?: No Do you have trouble with day-to-day activities such as bathing, preparing meals, shopping, managing finances, etc.?: No Are you currently unemployed and looking for a job?: No Are you interested in more education?: No Please select the resources that you would like help with: None Currently or been in a relationship where the following occur: No concerns reported THRIVE Score: 0 DANIELLE-7 AMB Questionnaire DANIELLE-7 Date DANIELLE - 7 assessed: 04/26/24 Source: Developed by Drs. Aravind Ding, Yokasta Valdez, Denzel Rivera and colleagues, with an educational og from [employer]. Review of Systems Const All systems reviewed & are unremarkable except as noted in HPI and below Eyes Reports no additional complaints ENT Reports no additional complaints Card Reports no additional complaints Resp Reports no additional complaints GI Reports no additional complaints Reports no additional complaints Physical exam (Primary Care) Vital Signs: Last Vital Signs Temp 98.1 F 08/22/24 13:45 Pulse 97 08/22/24 13:45 Resp 18 08/22/24 13:45 BP 134/70 08/22/24 13:45 Pulse Ox 97 08/22/24 13:45 Oxygen Delivery Method Room Air 08/22/24 13:45 Tobacco/Smoking Status: Tobacco use Status Tobacco use date assessed 08/22/24 08/22/24 13:50 Patient Tobacco Use Status Never used Tobacco 08/22/24 13:50 e-Cigarette/Vaping Use Never Used 08/22/24 13:50 Thrive Assessment: Date of Thrive Assessment Date Thrive assessed 04/26/24 08/22/24 13:50 Currently or been in a relationship where the following occur: No concerns reported Const General: no acute distress Orientation/consciousness: patient oriented x3 HENMT Ears: hearing grossly normal bilaterally Neck Neck: Yes no lymphadenopathy and Yes supple Resp Effort & Inspection: normal respiratory effort Auscultation: clear to auscultation bilaterally Cardio Rhythm: regular rhythm Heart sounds: S1 normal heart sound present and S2 normal heart sound present GI Inspection: Yes normal to inspection Palpation (GI): Soft to palpation Percussion: Yes normal to percussion Auscultation: normal bowel sounds Neuro General: patient oriented x3 and gait normal Cranial nerves: Yes CN's II-XII intact bilaterally Cognition (Neuro): normal cognition Motor exam (neuro): 5/5 motor strength present throughout Romberg Test: Negative Extrem General: Yes no clubbing, cyanosis or edema Coding Level of Care Code Est Pt Level 4 (93141) Diagnoses TIA (transient ischemic attack) G45.9 Hypothyroid E03.9 H/O gastric bypass Z98.84 Tremor R25.1 Assessment & Plan Assessment & Plan (1) TIA (transient ischemic attack): Code(s): G45.9 - Transient cerebral ischemic attack, unspecified Category: Medical Plan: For the episode of slurred speech and gait disturbance obtain CT of the brain echocardiogram and carotid Doppler (2) Hypothyroid: Comment: f/u Dr Cabezas Code(s): E03.9 - Hypothyroidism, unspecified Category: Medical Plan: Continue levothyroxine check TSH level (3) H/O gastric bypass: Comment: Mar 2022 Code(s): Z98.84 - Bariatric surgery status Category: Surgical Plan: Obtain blood work including vitamin B12 iron studies (4) Tremor: Comment: Relieved with orange juice Code(s): R25.1 - Tremor, unspecified Category: Medical Plan: Patient was advised to eat small frequent meals, avoid simple carbohydrates, increase protein and unsaturated fatty acids. Follow-up in 6 weeks Orders: Orders Complete Blood Count Auto Diff Today G45.9 - Transient cerebral ischemic attack, unspecified Vitamin D 25-OH Total Today E55.9 - Vitamin D deficiency, unspecified, G45.9 - Transient cerebral ischemic attack, unspecified Vitamin B12 and Folate Today G45.9 - Transient cerebral ischemic attack, unspecified, Z98.84 - Bariatric surgery status CA echo transthoracic complete Today G45.9 - Transient cerebral ischemic attack, unspecified CT head/brain wo IV con Today G45.9 - Transient cerebral ischemic attack, unspecified Comprehensive [place]. Panel Fast Today G45.9 - Transient cerebral ischemic attack, unspecified TSH reflex Free T4 Today E03.9 - Hypothyroidism, unspecified, G45.9 - Transient cerebral ischemic attack, unspecified US carotid duplex BI Today G45.9 - Transient cerebral ischemic attack, unspecified IRON PROFILE Today Z98.84 - Bariatric surgery status
--- OUTSIDE RECORDS SUMMARY | 2024-08-22 14:25 | XMS_ITS ---
[facility] History of Medication Use Medication Directions Dispensed Refills Start Date End Date Stat us brompheniramine-ps eudoephedrine-DM (BROMFED DM) 30-2-10 MG/5ML syrup Take 10 mL by mouth 4 (four) times a day as needed for congestion or cough. 11/24/2022 12/03/19 23 active levothyroxine (SYNTHROID, LEVOTHROID) 150 MCG tablet Take 150 mcg by mouth daily. 11/04/2022 active omeprazoleTakeNo le e recordedNo form recordedNo frequency recordedNo route recordedNo set duration recordedNo set duration amount recordedactiveNo dosage strength recordedNo dosage strength units of measure recorded active levothyroxineTakeNo date recordedNo form recordedNo frequency recordedNo route recordedNo set duration recordedNo set duration amount recordedactiveNo dosage strength recordedNo dosage strength units of measure recorded active Allergies Allergen Reaction Severity Comment Documented Date Source Statu s OXYCODONE-ACETAMINOPHEN HIVES 11/24/2022 [facility] active PERCOCET HIVES [facility] Problems Problem Status Onset Date Problem Type Date of Resolution Source Other irritable bowel syndrome active ProblemAct [facility] Headache, unspecified active 2023-04-19 ProblemAct [facility] Other muscle spasm active 2023-04-19 ProblemAct [facility] Heartburn active ProblemAct [facility] E Autoimmune thyroiditis active ProblemAct [facility] Depression active ProblemAct [facility] NE Viral URI with cough active EncounterDiagnosisAct CCT Encounters Encounter Type Encounter Reason Primary Diagnosis Location Date Ambulatory [facility]al [facility] [employer] [facility] [facility]/01/2023 Ambulatory Acute upper respiratory infection, unspecified Acute upper respiratory infection, unspecified [facility] 11/24/2022 Care Team Organization Name Specialty Phone Email Start Date End Da te [facility] NO PCP Primary Care 10/01/2023 [facility] Disclosed Primary Care 04/19/2023 [facility] Primary Care 04/19/2023 [facility] 11/24/2022 05/02/2024 [facility] 11/24/2022 11/24/2022
--- OUTSIDE RECORDS SUMMARY | 2024-08-22 14:25 | XMS_ITS | Clinical Summary ---
Author Organization [facility] Address [address] [place] [address] Care Team Providers Care Stonecutter Assistant Name Role Phone Pcp, No Primary Care [...] 84 10/01/2023 10:20 AM EDT Temperature 35.8 C (96.5 F) 10/01/2023 10:20 AM EDT Respiratory Rate - - Oxygen Saturation 96% [...] Zoster (Shingles) Vaccine (1 of 2) 06/26/2023 COVID-19 Vaccine ( - 2023-25 season) 2023 11/11/2020, 03/18/2020, 02/26/2020 Influenza Vaccine 09/14/2024 Insurance [facility] [place] [id number] Care Teams Stonecutter Assistant Relationship Specialty Start Date End Date Pcp, No PCP - General General Medicine 11/09/22
== END 2024-08-22 14:13 | disposition home or self-care (01) ==
LOC: HO.HMCC 13:35
PROVIDERS: PCP Internal Medicine; Visit Provider Internal Medicine
DX: G45.9 Transient cerebral ischemic attack, unspecified (principal); E03.9 Hypothyroidism, unspecified; Z98.84 Bariatric surgery status; R25.1 Tremor, unspecified

== ENCOUNTER 2024-08-24 08:54 | Outpatient (REF) | payer BC, SELFPAY ==
--- OUTSIDE RECORDS SUMMARY | 2024-08-24 09:06 | XMS_ITS | Clinical Summary ---
Author Organization [facility] Address [address] [place] [address] Care Team Providers Care Pole Classifier Name Role Phone Pcp, No Primary Care [...] 11/11/2020, 03/18/2020, 02/26/2020 Influenza Vaccine 09/14/2024 Insurance [facility] [place] [id number] Care Teams Pole Classifier Relationship Specialty Start Date End Date Pcp, No PCP - General General Medicine 11/09/22
[2024-08-24 10:42] LABS: MANUAL DIFF FLAG NO
[2024-08-24 10:49] LABS: Hematocrit 35.8 % (37.0-47.0); Hemoglobin 11.4 g/dl (12.0-16.0); Imm Gran Abs Auto 0.02 X10*3/uL (0.00-0.03); Imm Gran Pct Auto 0.3 % (0.0-0.4); Lymphocytes Absolute Auto 2.5 X10*3/uL (1.2-4.9); Mean Corpuscular HGB Conc 31.8 g/dl (31.0-35.0); Mean Corpuscular Hemoglobin 30.4 pg (27.0-33.0); Mean Corpuscular Volume 95.5 fL (80.0-98.0); NRBC Abs Auto 0.000 X10*3/uL (0.0-0.012); NRBC Pct Auto 0.0 /100WBC (0.0-0.2); Platelet Count 369 X10*3/uL (160-400); Red Blood Count 3.75 X10*6/uL (4.20-5.50); White Blood Count 5.8 X10*3/uL (4.8-10.8)
[2024-08-24 11:11] LABS: Alanine Aminotransferase 15 U/L (0-31); Albumin Level 4.0 g/dL (3.5-5.0); Alkaline Phosphatase 105 U/L (39-117); Anion Gap 10 (12-20); Aspartate Amino Transferase 19 U/L (5-31); Blood Urea Nitrogen 13 mg/dL (9-16); Calcium 8.7 mg/dL (8.4-10.2); Carbon Dioxide 27 mmol/L (22-29); Chloride 108 mmol/L (96-108); Estimated Glomerular Filt Rate > 60; Iron 96 mcg/dL (30-160); Percent Iron Saturation 24 % (15-50); Potassium 4.2 mmol/L (3.3-5.1); Sodium 141 mmol/L (135-145); Total Iron Binding Capacity 394 mcg/dL (228-428); Total Protein 6.7 g/dL (6.5-8.0); Unsaturated Iron Binding 298 ug/dL
[2024-08-24 11:38] LABS: Folate 6.4 ng/mL (> or = 4.0); Vitamin B12 224 pg/mL (200-900)
[2024-08-24 13:18] LABS: Free T4 (Free Thyroxine) 0.94 ng/dL (0.71-1.85)
== END 2024-08-24 08:55 | disposition home or self-care (01) ==
LOC: HO.HMGCLDS 08:54
PROVIDERS: PCP Internal Medicine; Visit Provider Internal Medicine
DX: G45.9 Transient cerebral ischemic attack, unspecified (principal); E55.9 Vitamin D deficiency, unspecified; E03.9 Hypothyroidism, unspecified; Z98.84 Bariatric surgery status
CPT/HCPCS: 36415; 80053; 82306; 82607; 82746; 83540; 84439; 84443; 85025

== ENCOUNTER 2024-08-27 11:03 | Outpatient (REF) | payer BC, SELFPAY ==
--- NOTE | ~2024-08-27 | CT_ITS ---
EXAMINATION: CT HEAD WITHOUT CONTRAST CLINICAL INFORMATION: G45.9 - Transient cerebral ischemic attack, unspecified COMPARISON: None available. TECHNIQUE: Contiguous axial imaging was performed from the skull base to vertex without intravenous administration of contrast. This CT examination was performed using dose optimization techniques as appropriate, variously including the following: *Automated exposure control *Adjustment of mA and/or kV according to patient size (this includes techniques or standardized protocols for targeted exams where dose is matched to indication/reason for exam; i.e. extremities or head) *Use of iterative reconstruction technique DLP: 611 mGy-cm FINDINGS: No acute intracranial hemorrhage, mass effect, midline shift, hydrocephalus or herniation. Arias-white matter differentiation is normal. There is no dense MCA. Posterior cranial fossa contents demonstrated no acute intraconal hemorrhage or mass effect. Craniocervical junction demonstrates normal position of the cerebellar tonsils. Sellar/suprasellar region demonstrated no gross masses. The bony calvarium is intact. Tympanic cavities and mastoid cells are aerated. CT/CT head/brain wo IV con IMPRESSION: No acute or structural brain abnormality by CT. Negative. Electronically signed by: Lowell Laughlin MD 08/27/2024 11:46 AM EDT
--- OUTSIDE RECORDS SUMMARY | 2024-08-27 12:08 | XMS_ITS | Clinical Summary ---
Author Organization [facility] Address [address] [place] [address] Care Team Providers Care Welder [employer] Name Role Phone Pcp, No Primary Care [...] 11/11/2020, 03/18/2020, 02/26/2020 Influenza Vaccine 09/14/2024 Insurance [facility] [place] [id number] Care Teams [employer]der [employer] Relationship Specialty Start Date End Date Pcp, No PCP - General General Medicine 11/09/22
== END 2024-08-27 11:04 | disposition home or self-care (01) ==
LOC: HO.CT 11:03
PROVIDERS: PCP Internal Medicine; Visit Provider Internal Medicine
DX: G45.9 Transient cerebral ischemic attack, unspecified (principal)
CPT/HCPCS: 70450

== ENCOUNTER → 2024-08-27 11:08 | Outpatient (BNV) | payer BC, SELFPAY | PROVIDERS: PCP Internal Medicine; Visit Provider Radiology Diagnostic Radiology | DX: G45.9 Transient cerebral ischemic attack, unspecified (principal) | CPT/HCPCS: 70450 ==

== ENCOUNTER 2024-09-11 01:40 | Emergency (ER) | payer BC, SELFPAY ==
[2024-09-11 01:45] VITALS: BP 176/87; PULSE 88; RESP 18; TEMP 36.5; O2SAT 99; BMI 36.2
[2024-09-11 02:23] LABS: Hematocrit 35.4 % (37.0-47.0); Hemoglobin 11.7 g/dl (12.0-16.0); Imm Gran Abs Auto 0.03 X10*3/uL (0.00-0.03); Imm Gran Pct Auto 0.3 % (0.0-0.4); Lymphocytes Absolute Auto 4.3 X10*3/uL (1.2-4.9); MANUAL DIFF FLAG NO; Mean Corpuscular HGB Conc 33.1 g/dl (31.0-35.0); Mean Corpuscular Hemoglobin 31.0 pg (27.0-33.0); Mean Corpuscular Volume 93.7 fL (80.0-98.0); NRBC Abs Auto 0.000 X10*3/uL (0.0-0.012); NRBC Pct Auto 0.0 /100WBC (0.0-0.2); Platelet Count 336 X10*3/uL (160-400); Red Blood Count 3.78 X10*6/uL (4.20-5.50); White Blood Count 9.4 X10*3/uL (4.8-10.8)
[2024-09-11 02:26] LABS: Appearance Urine Turbid; Glucose Urine UA 100 mg/dL (Negative); PH 5.0 (5.0-9.0); Specific Gravity - Urine >= 1.030 (1.005-1.025); UMIC TRIGGER UACC YES
[2024-09-11 02:38] LABS: UACC Culture Trigger YES
[2024-09-11 02:40] LABS: Alanine Aminotransferase 18 U/L (0-31); Albumin Level 4.2 g/dL (3.5-5.0); Alkaline Phosphatase 120 U/L (39-117); Anion Gap 14 (12-20); Aspartate Amino Transferase 26 U/L (5-31); Blood Urea Nitrogen 13 mg/dL (9-16); Calcium 8.6 mg/dL (8.4-10.2); Carbon Dioxide 25 mmol/L (22-29); Chloride 109 mmol/L (96-108); Creatinine Clr Calc Pharmacy 93.7; Estimated Glomerular Filt Rate > 60; Potassium 3.9 mmol/L (3.3-5.1); Sodium 144 mmol/L (135-145); Total Protein 7.1 g/dL (6.5-8.0)
[2024-09-11 03:49] VITALS: BP 191/94; PULSE 68; RESP 16; TEMP 36.6; O2SAT 99
[2024-09-11 04:58] VITALS: BP 150/84; PULSE 67; RESP 13; TEMP 36.5; O2SAT 99
--- OUTSIDE RECORDS SUMMARY | 2024-09-11 05:12 | XMS_ITS | Clinical Summary ---
Author Organization [facility] Address [address] [place] [address] Care Team Providers Care Laborer [employer] Name Role Phone Pcp, No Primary Care [...] 11/11/2020, 03/18/2020, 02/26/2020 Influenza Vaccine 09/14/2024 Insurance [facility] [place] [id number] Care Teams [employer]orer [employer] Relationship Specialty Start Date End Date Pcp, No PCP - General General Medicine 11/09/22
--- NOTE | 2024-09-11 07:36 | ED.FEMALEGU ---
HPI - Female Genitourinary General Chief complaint: Urogenital-Female Stated complaint: blood in urine Time Seen by Provider: 09/11/24 07:36 History of Present Illness ED Provider: Valerie ALAMO Narrative: The patient is a 49-year-old woman who says that yesterday morning she noticed blood in her urine. His persisted throughout the day and continued this morning. She has also had some pain in the right side of her abdomen and her right flank. She has not had any urinary discomfort, urinary frequency, or urinary urgency. She has not had any fever, sweats, chills. No nausea or vomiting. The patient has had bariatric surgery with a sleeve gastrectomy. She has also had a cholecystectomy. The patient was treated for a possible case of pyelonephritis in 2022. At that time she had a CT scan of the abdomen and pelvis without contrast that showed no kidney stones. Related Data Home Medications ?Medication ?Instructions ?Recorded ?Confirmed loperamide 2 mg capsule (Imodium 2 mg PO QID PRN Diarrhea 03/06/20 08/22/24 A-D) omeprazole 40 mg capsule,delayed 40 mg PO BID PRN Stomach Upset 03/11/23 08/22/24 release Previous Rx's ?Medication ?Instructions ?Recorded gabapentin 600 mg tablet See Rx Instructions PO BID #225 04/26/24 tabs sertraline 100 mg tablet 100 mg PO DAILY #30 tabs 04/26/24 levothyroxine 150 mcg tablet 150 mcg PO DAILY #90 tabs 06/05/24 cefuroxime axetil 250 mg tablet 250 mg PO BID 5 days #10 tabs 09/11/24 Allergies Allergy/AdvReac Type Severity Reaction Status Date / Time oxycodone (From PERCOCET) Allergy Unknown ITCHING Verified 09/11/24 01:46 Review of Systems Review of Systems: Yes all other systems are reviewed and are negative [facility] Past Medical History Medical History (Updated 09/12/24 @ 00:01 by Kyree Tran) Tremor Fatty liver Heart murmur History of shingles Hypothyroid Hx of mammogram Normal pelvic exam DJD (degenerative joint disease), lumbar GERD (gastroesophageal reflux disease) Overweight Insomnia IBS (irritable bowel syndrome) Anxiety Depression Epidermal cyst Surgical History Hx of esophagogastroduodenoscopy (12/24/21) H/O gastric bypass History of esophagogastroduodenoscopy (EGD) Hx of colonoscopy Gastric bypass status for obesity History of hysterectomy History of cholecystectomy Family History Family History Paternal Grandfather History of colon cancer Maternal Grandmother History of breast cancer Mental health disorder Family/Other History of breast cancer Sister Substance use disorder Mental health disorder Maternal Aunt Substance use disorder Maternal Uncle Substance use disorder Paternal Uncle Substance use disorder Maternal Uncle Substance use disorder Mother Mental health disorder Brother Mental health disorder Social History Social History Housing: Apartment Housing Other:: , 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, 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 [employer] Are you a primary intensive care unit registered nurse to a significant other at home: No Do you presently have visiting nurse or other home services: No Alcohol intake: never Patient Tobacco Use Status: Never used Tobacco e-Cigarette/Vaping Use: Never Used Advance Directives: No Advance Directives Information Provided: Yes Do you have a plan to hurt others: No Plan service: No Current occupational status: employed Cognitive needs: No Hearing needs: No Vision needs: No Physical Exam Vital Signs: Vital Signs: Last Vital Signs Temp 98 F 09/11/24 08:28 Pulse 74 09/11/24 08:28 Resp 17 09/11/24 08:28 BP 171/71 H 09/11/24 08:28 Pulse Ox 98 09/11/24 08:28 O2 Del Method Room Air 09/11/24 08:28 BMI result Body Mass Index 36.2 Const: Other: The patient is a 49-year-old female who was awake and alert. She is pleasant and cooperative. She does not appear obviously ill or in distress. She does not seem obviously uncomfortable. Orientation/consciousness: patient oriented x3 HEENT: Other: The face is symmetrical. Mucous membranes moist. Eyes: General: appearance normal, both eyes and all related structures Neck: Neck: Yes normal visual inspection and Yes full ROM Resp: Effort & Inspection: normal respiratory effort Auscultation: clear to auscultation bilaterally Cardio: Rate: regular rate Rhythm: regular rhythm Heart sounds: S1 normal heart sound present and S2 normal heart sound present GI: Other: The abdomen is soft and nontender. Back/Spine/Pelvis: Other: There was possibly some minimal right-sided CVA percussion tenderness but I felt this was an equivocal finding. Skin: Other: The skin is dry and unremarkable. Skin appears normal. No diaphoresis. Neuro: General: patient oriented x3, gait normal, tone normal, moves all extremities, no focal motor deficits and CN's II-XI intact bilaterally Extrem: Other: There is no calf swelling or tenderness. No asymmetry. No peripheral edema. Medications Administered Discontinued Medications Generic Name Dose Route Start Last Admin Trade Name Freq PRN Reason Stop Dose Admin Cefuroxime Axetil 500 mg 09/11/24 07:45 09/11/24 08:15 Cefuroxime Axetil 500 Mg Tablet PO 09/11/24 07:46 500 mg ONCE ONE Administration Medical Decision Making Medical Decision Making [facility] Narrative: The patient is a 49-year-old female who presents for evaluation of hematuria that started yesterday. She has no associated urinary symptoms. She complains of some right-sided flank pain. She does not appear obviously uncomfortable. She has had no fever, sweats, chills. She has had no nausea or vomiting. Clinically she does not have the appearance of a person experiencing ureteral colic. She does not appear septic in any way. She is mildly hypertensive but not tachycardic or febrile. Urinalysis shows hematuria and some mild signs of a possible UTI. Her metabolic panel shows normal renal function. Her CBC shows a normal white count with a lymphocyte predominance. Overall the patient is presentation has a bit of a puzzle. Two years ago she was treated for a possible pyelonephritis. At that time she had a noncontrast CT of the abdomen and pelvis that did not show any kidney stones. Additionally it did not show any perinephric stranding. Today the patient has hematuria and a urinalysis consistent with hematuria but which is only mildly suggestive of a UTI and which does not show any bacteria. She has no urinary symptoms. She has some right flank pain but does not appear obviously uncomfortable in a manner I would consider consistent with a Ureteral stone. I explained to the patient how I was having trouble putting together her clinical picture. we discussed possibly doing a CT scan to ensure that no kidney stone was present today. The patient has been waiting for many hours prior to a provider evaluation. She was not interested in staying in the emergency room any longer. She would like to try a course of antibiotics and follow up with her PCP. I do not think this is unreasonable. She was started on a course of cefuroxime. She should return if worse. Lab Data 09/11/24 02:10 09/11/24 02:10 Labs: Lab Results 09/11/24 Range/Units 02:10 WBC 9.4 (4.8-10.8) X10*3/uL RBC 3.78 L (4.20-5.50) X10*6/uL Hgb 11.7 L (12.0-16.0) g/dl Hct 35.4 L (37.0-47.0) % MCV 93.7 (80.0-98.0) fL MCH 31.0 (27.0-33.0) pg MCHC 33.1 (31.0-35.0) g/dl RDW 13.9 (11.0-16.0) % Plt Count 336 (160-400) X10*3/uL MPV 8.1 L (9.4-12.3) fL Immature Gran % (Auto) 0.3 (0.0-0.4) % Neut % (Auto) 42.2 L (45-73) % Lymph % (Auto) 45.3 H (20-40) % [place] % (Auto) 9.7 (2-11) % Eos % (Auto) 1.9 (0-4) % Baso % (Auto) 0.6 (0-2) % Lymph # (Auto) 4.3 (1.2-4.9) X10*3/uL [place] # (Auto) 0.9 (0.1-1.2) X10*3/uL Eos # (Auto) 0.2 (0.0-0.4) X10*3/uL Baso # (Auto) 0.1 (0.0-0.2) X10*3/uL Abs Immat Gran (auto) 0.03 (0.00-0.03) X10*3/uL Absolute Neuts (auto) 4.0 (2.0-8.3) x10*3/uL Absolute Nucleated RBC 0.000 (0.0-0.012) X10*3/uL Nucleated RBC % (auto) 0.0 (0.0-0.2) /100WBC Sodium 144 (135-145) mmol/L Potassium 3.9 (3.3-5.1) mmol/L Chloride 109 H (96-108) mmol/L Carbon Dioxide 25 (22-29) mmol/L Anion Gap 14 (12-20) BUN 13 (9-16) mg/dL Creatinine 0.74 (0.5-1.4) mg/dL Estim Creat Clear Calc 93.7 Estimated GFR > 60 Random Glucose 88 (60-115) mg/dL Calcium 8.6 (8.4-10.2) mg/dL Total Bilirubin 0.1 (0.0-1.0) mg/dL Direct Bilirubin < 0.2 (0.0-0.5) mg/dL AST 26 (5-31) U/L ALT 18 (0-31) U/L Alkaline Phosphatase 120 H (39-117) U/L Total Protein 7.1 (6.5-8.0) g/dL Albumin 4.2 (3.5-5.0) g/dL Urine Color Red A Urine Appearance Turbid Urine pH 5.0 (5.0-9.0) Ur Specific [place] >= 1.030 H (1.005-1.025) Urine Protein 100 (2+) H (Neg-Trace) mg/dL Urine Glucose (UA) 100 H (Negative) mg/dL Urine Ketones Negative (Negative) mg/dL Urine Blood Large (3+) H (Negative) Urine Nitrite Negative (Negative) Ur Leukocyte Esterase Small (1+) H (Negative) Urine RBC >20 H (0-2) /HPF Urine WBC 11-20 H (0-5) /HPF Ur Squamous Epith Cells 0-2 (0-2) /HPF Calcium Oxalate Crystal Present Urine Bacteria None Seen (None Seen) Hyaline Casts 0-2 (0-2) /LPF Discharge Plan Discharge Clinical Impression: Hematuria Patient Disposition: Home, Self-Care Instructions: Hematuria (ED) Additional Instructions: You has been started on a course of antibiotics in case of the blood in your urine is related to an infection. You received your 1st dose here in the emergency room. A prescription for additional antibiotics has been sent to your pharmacy. Please take your next dose this evening. Take the antibiotics 2 times a day, approximately every 12 hours. Drink lot of fluids. You may use ibuprofen and acetaminophen [id number] as needed for discomfort. My hope would be that your urine should clear up over the next 2-3 days. If you have significant ongoing bleeding in your urine you must follow up with your regular doctor. Please call if any concerns persist. If at any point you are significantly worse, especially if you develop a fever or vomiting, return to the emergency room for further evaluation. Prescriptions: New cefuroxime axetil 250 mg tablet 250 mg PO BID 5 Days Qty: 10 0RF No Action levothyroxine 150 mcg tablet 150 mcg PO DAILY Qty: 90 3RF loperamide [Imodium A-D] 2 mg capsule 2 mg PO QID PRN (Reason: Diarrhea) omeprazole 40 mg capsule,delayed release(DR/EC) 40 mg PO BID PRN (Reason: Stomach Upset) gabapentin 600 mg tablet See Rx Instructions PO BID Qty: 225 3RF Rx Instructions: 1 tab in am, 1.5 tab at bedtime orally 2 times a day; sertraline 100 mg tablet 100 mg PO DAILY Qty: 30 3RF Referrals: Corry Perez MD [Primary Care Provider, Internal Medicine] Stand Alone Forms: Work/School Release Interventions: ED Discharge Assessment Last Done: 09/11/24 08:28 Discharge Date/Time: 09/11/24 08:29 Print Language: [place]
[2024-09-11 07:56] VITALS: BP 171/71; PULSE 74; RESP 17; TEMP 36.6; O2SAT 98
[2024-09-11 08:28] VITALS: BP 171/71; PULSE 74; RESP 17; TEMP 36.6; O2SAT 98
== END 2024-09-11 08:29 | disposition home or self-care (01) ==
PROVIDERS: Emergency Provider Emergency Medicine; PCP Internal Medicine
DX: R31.9 Hematuria, unspecified (principal); E03.9 Hypothyroidism, unspecified; E55.9 Vitamin D deficiency, unspecified; Z87.440 Personal history of urinary (tract) infections; Z98.84 Bariatric surgery status
CPT/HCPCS: 36415; 80048; 80076; 81001; 85025; 87086; 99283

== ENCOUNTER 2024-09-14 14:26 | Outpatient (AMB) | payer BC, SELFPAY ==
--- OUTSIDE RECORDS SUMMARY | 2024-01-30 03:30 | XMS_ITS ---
Author Organization [facility] Address [address] [place] [address] Care Team Providers Care Solar Energy System Installer Helper Name Role Phone Corry Perez MD Primary Care Provider Unavaila Aravind Feliz Unavailable [phone] Simeon Calvo MD Unavailable Unavailable REASON FOR VISIT screening Problems Problem Type SNOMED Code ICD Code Onset Dates Problem Status W/U Status Risk Notes Problem Diverticulosis o f large intestine without perforation or abscess without bleeding (K57.30) Active confirmed Encounters Encounter Location Date Provider Diagnosis [facility] Outpatient [address] [place] [phone] 01/30/2024 Aravind Schwartz Colon cancer scree abdon [...] PALMA BERGMAN ADOB: [birth year] (49 yo F)Acc No.[id number]:01/30/2024 COLON WITH MAC Patient: PALMA WALLER Provider: Meli Schwartz MD :1975 A ge:48 Y S ex:Female Date:01/30/2024 Address:[address] [place], [place] [phone] Pcp:Corry Perez MD Subjective: * Chief Complaints: [...] 04/01/2023 Generated for David vee/Torri/Dkitting on: 0 09/14/2024 02:28 PM EDT
--- NOTE | 2024-09-14 14:28 | MHC.OFFWIV ---
Intake Vital Signs 09/14/24 14:38 Height 5 ft 2 in BMI Reason not done Patient refused/unable BP 142/94 H Blood Pressure Location Lt brachial Position Sitting Pulse 87 Pulse Source Pulse Oximeter Temp 97.6 F Temp Source Oral Pulse Oximetry (%) 98 Oxygen Delivery Method Room Air Intake Visit Reasons: EP-blood in urine Intake Note: presents with blood in urine, right low abdomen pain going into right back Patient Tobacco Use Status: Never used Tobacco Allergies oxycodone (From PERCOCET) Allergy (Unknown, Verified 09/14/24 14:37) ITCHING Do you need a note to return to daycare/school/sports/work: Yes HPI HPI Comments History of Present Illness Details This is a 49-year-old female who presented to the walk-in clinic with persistent hematuria and right-sided flank and lower abdominal pain. She was evaluated in the emergency room on 09/11/2024. At that time, she was diagnosed with a urinary tract infection and she was sent home on p.o. cefuroxime 250 mg twice daily x5 days. There was also mention of possible nephrolithiasis; however, she did not have a CT abdomen/pelvis performed at that time. The emergency room provider recommended that she follow-up with her primary care physician if her symptoms persisted. Patient presented today to the walk-in clinic as her symptoms have persisted. She states that the right-sided flank and lower abdominal pain has slightly improved but she is still having persistent hematuria. She denies any known trauma/injury to the area prior to her symptom onset. She denies any fevers or chills. She reports mild nausea but denies any vomiting. She denies any diarrhea or constipation. [facility] Medical History (Updated 09/12/24 @ 00:01 by Kyree Tran) Tremor Fatty liver Heart murmur History of shingles Hypothyroid Hx of mammogram Normal pelvic exam DJD (degenerative joint disease), lumbar GERD (gastroesophageal reflux disease) Overweight Insomnia IBS (irritable bowel syndrome) Anxiety Depression Epidermal cyst Surgical History Hx of esophagogastroduodenoscopy (12/24/21) H/O gastric bypass History of esophagogastroduodenoscopy (EGD) Hx of colonoscopy Gastric bypass status for obesity History of hysterectomy History of cholecystectomy Family History Paternal Grandfather History of colon cancer Maternal Grandmother History of breast cancer Mental health disorder Family/Other History of breast cancer Sister Substance use disorder Mental health disorder Maternal Aunt Substance use disorder Maternal Uncle Substance use disorder Paternal Uncle Substance use disorder Maternal Uncle Substance use disorder Mother Mental health disorder Brother Mental health disorder Social History Housing: Apartment Housing Other:: , 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, 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 [employer] Are you a primary memory care program director to a significant other at home: No Do you presently have visiting nurse or other home services: No Alcohol intake: never Patient Tobacco Use Status: Never used Tobacco e-Cigarette/Vaping Use: Never Used service: No Current occupational status: employed Cognitive needs: No Hearing needs: No Vision needs: No Review of Systems Const All systems reviewed & are unremarkable except as noted in HPI and below Reports no additional complaints Eyes Reports no additional complaints ENT Reports no additional complaints Card Reports no additional complaints Resp Reports no additional complaints GI Reports no additional complaints Reports no additional complaints Musc Reports no additional complaints Skin/Breast Reports system reviewed and no additional complaints, except as documented Neuro Reports no additional complaints Psych Reports no additional complaints Endo Reports no additional complaints Deon/Lymph Reports no additional complaints Aller/Immun Reports no additional complaints Physical Exam Vital Signs: Last Vital Signs Temp 97.6 F 09/14/24 14:38 Pulse 87 09/14/24 14:38 BP 142/94 H 09/14/24 14:38 Pulse Ox 98 09/14/24 14:38 Oxygen Delivery Method Room Air 09/14/24 14:38 Const Other: Vital signs reviewed. Constitutional: Non-toxic appearing. No acute distress. Well-developed and well-nourished. HEENT: Normocephalic and atraumatic. Skin: Warm and dry. No rashes or lesions noted. Neck: Full and painless range of motion. No cervical lymphadenopathy. Cardio: Regular rate and rhythm. No murmurs, gallops, or rubs. No lower extremity edema. No JVD. Pulmonary: No respiratory distress. No accessory muscle usage. Clear to auscultation bilaterally without wheezing, crackles, or rhonchi. Gastrointestinal: There is mild tenderness to palpation of the right lower quadrant without rebound tenderness to palpation. Otherwise, abdomen is soft, non-tender, and non-distended with normoactive bowel sounds. Genitourinary: + Right-sided CVA tenderness. Musculoskeletal: Normal range of motion in joints throughout the body. No deformity or other signs of injury. Neuro: Alert and oriented x4. Cranial nerves 2-12 grossly intact. No focal deficits appreciated. Psych: Normal mood and affect. Results AMB Urinalysis, Automated UA Leukoctes 15 Dereje/uL Last Edit by Karie Damon MA on 09/14/24 14:48 UA Nitrite Negative Last Edit by Karie Damon MA on 09/14/24 14:48 UA Urobilinogen 0 mg/dL Last Edit by Karie Damon MA on 09/14/24 14:48 UA Protein 30 mg/dL Last Edit by Karie Damon MA on 09/14/24 14:48 UA pH 6.0 Last Edit by Karie Damon MA on 09/14/24 14:48 UA Blood 200 Sergio/uL Last Edit by Karie Damon MA on 09/14/24 14:48 UA Specific [place] 1.030 Last Edit by Karie Damon MA on 09/14/24 14:48 UA Ketone Negative Last Edit by Karie Damon MA on 09/14/24 14:48 UA Bilirubin 0 mg/dL Last Edit by Karie Damon MA on 09/14/24 14:48 UA Glucose 0 mg/dL Last Edit by Karie Damon MA on 09/14/24 14:48 Assessment & Plan Assessment & Plan (1) Right flank pain: Code(s): R10.9 - Unspecified abdominal pain (2) Hematuria: Code(s): R31.9 - Hematuria, unspecified Qualifiers: Hematuria type: gross Qualified Code(s): R31.0 - Gross hematuria Plan This is a 49-year-old female who presented to the walk-in clinic complaining of persistent hematuria and right-sided flank and lower abdominal pain. A repeat urinalysis was positive for +/- leukocyte esterase and 3+ blood, urine culture from 09/11/2024 was negative for bacterial growth. There is concern for nephrolithiasis; however, this can not be diagnosed without a CT abdomen/pelvis. I recommended that the patient return to the emergency room for a CT abdomen/pelvis to evaluate for a large stone versus ureteral obstruction; however, patient declined at this time. Patient was given a prescription for p.o. tamsulosin 0.4 mg every night at bedtime x7 days to help with expulsion of possible stone. She was advised to complete antibiotic course as previously prescribed. I sent a message to her primary care physician and discussed patient's history and physical possible need for CT abdomen/pelvis. Patient was advised to proceed directly to the emergency room if she were to develop fever/chills, vomiting, worsening hematuria, or worsening flank pain. Patient verbalized understanding and is agreeable with the plan. Orders: Orders AMB Urinalysis Automated Today Z13.9 - Encounter for screening, unspecified Medications: New tamsulosin 0.4 mg PO BEDTIME 7 caps 0RF Coding Level of Care Code Est Pt Level 3 (58642) Diagnoses Right flank pain R10.9 Gross hematuria R31.0 Hematuria type: gross
--- OUTSIDE RECORDS SUMMARY | 2024-09-14 14:28 | XMS_ITS | Clinical Summary ---
Author Organization [facility] Address [address] [place] [address] Care Team Providers Care Court Collections Officer Name Role Phone Pcp, No Primary Care [...] 03/18/2020, 02/26/2020 Influenza Vaccine 09/14/2024 Insurance [facility] [place] [phone] Collections Officer Relationship Specialty Start Date End Date Pcp, No PCP - General General Medicine 11/09/22
[2024-09-14 14:38] VITALS: BP 142/94; PULSE 87; TEMP 36.4; O2SAT 98
== END 2024-09-14 16:02 | disposition home or self-care (01) ==
PROVIDERS: PCP Internal Medicine; Visit Provider Physician Assistant Medical
DX: R10.9 Unspecified abdominal pain (principal); R31.0 Gross hematuria; Z13.9 Encounter for screening, unspecified

== ENCOUNTER → 2024-09-14 14:26 | Outpatient (BNVA) | payer BC, SELFPAY | PROVIDERS: PCP Internal Medicine; Visit Provider Physician Assistant Medical | DX: R31.0 Gross hematuria (principal); R10.9 Unspecified abdominal pain | CPT/HCPCS: 81003 ==

== ENCOUNTER 2024-09-15 14:10 | Inpatient (IN) | payer BC, SELFPAY ==
--- OUTSIDE RECORDS SUMMARY | 2024-01-30 03:30 | XMS_ITS ---
Author Organization [facility] Address [address] [place] [address] Care Team Providers Care Dry Curer Name Role Phone Corry Perez MD Primary Care Provider Unavaila Aravind Feliz Unavailable [phone] Simeon Calvo MD Unavailable Unavailable REASON FOR VISIT screening Problems Problem Type SNOMED Code ICD Code Onset Dates Problem Status W/U Status Risk Notes Problem Diverticular disease of colon (784405878) Diverticulosis of large intestine without perforation or abscess without bleeding (K57.30) Active confirmed Encounters Encounter Location Date Provider Diagnosis [facility] [place] [address] [place] [phone] 01/30/2024 Aravind Schwartz Colon cancer scree abdon [...] PALMA BERGMAN ADOB: 4 (49 yo F)Acc No.[id number]:01/30/2024 COLON WITH MAC Patient: PALMA WALLER Provider: Meli Schwartz MD :1975 A ge:48 Y S ex:Female Date:01/30/2024 Address:[address] [place] [address] Pcp:Corry Perez MD Subjective: * Chief Complaints: [...] 1 04/01/2023 Generated for David vee/Torri/Dkitting on: 0 09/15/2024 05:52 PM EDT
--- NOTE | ~2024-09-15 | CT_ITS ---
CLINICAL HISTORY: right flank pain, hematuria Exam: CT Abdomen and Pelvis Without IV Contrast Comparison: 12/10/2022 Findings: The liver density is homogeneous No biliary abnormalities. Gallbladder is surgically absent. The spleen is normal in size No pancreatic ductal dilatation A right renal 1.3 x 0.7 cm calculus is present partially obstructing the right ureteropelvic junction. Few scattered 1-2 mm nonobstructing calculi are also present in the minor calices of both kidneys. Normal bowel caliber. There has been gastric bypass Patricia-en-Y surgery The appendix is normal. No free fluid/free air The abdominal aorta caliber is normal No adenopathy. Bladder outline is smooth. The uterus is not well visualized and presumed to be surgically absent. No suspicious skeletal lesions Impression : 1.3 x 0.7 cm calculus partially obstructing the right ureteropelvic junction. This document has been electronically signed by: Lincoln Mackey MD on 09/15/2024 18:14:43
--- NOTE | ~2024-09-15 | FL_ITS ---
EXAMINATION: FL GUIDANCE ONLY HISTORY: stone right COMPARISON: Correlation is made with a CT of the abdomen and pelvis without contrast dated 09/15/2024. TECHNIQUE: Fluoroscopy time: 9.9 seconds. Cumulative Dose: 3.18 mGy. Images: 4. FINDINGS: The initial image from a right ureterogram demonstrates a filling defect at the right UPJ, which is consistent with the calculus noted on CT. The final image demonstrates the calculus to be within an upper pole calyx. FL/FL guidance in OR IMPRESSION: Fluoroscopy during procedure. Please see procedure report for additional information. Electronically signed by: Aravind Musa MD 09/18/2024 07:10 AM EDT
[2024-09-15 14:14] VITALS: BP 163/90; PULSE 79; RESP 17; TEMP 36.8; O2SAT 95; BMI 36.6
--- NOTE | 2024-09-15 14:16 | ED.ABDPAIN ---
HPI - Abdominal Pain General Chief Complaint: Urogenital-Female Stated Complaint: blood in urine pain abd and back Time Seen by Provider: 09/15/24 17:15 Source: patient Mode of arrival: ambulatory Limitations: no limitations History of Present Illness ED Provider: LISA HIGUERA PA-C HPI narrative: 49 year old female with pmhx significant for GERD, hypothyroidism, TIA presents to the ED today for evaluation of hematuria, right flank pain, nausea, and vomiting since Tuesday (6 days ago). She was evaluated at our facility the following day (5 days ago) with unremarkable work up. She did not receive any imaging of her abdomen at that time. She was subsequently discharged home on a trial of antibiotics for suspected urinary tract infection. She has been taking this without improvement in symptoms. She presented to yesterday for worsening symptoms, prescribed tamsulosin without improvement. She initially described her right flank pain as dull in character however is now waxing and waning severity. Pain is currently 8/10 and wraps around from right flank into her abdomen. Reports continued hematuria with dimitris blood in her urine. No clots. Denies dysuria, increased urinary frequency or urgency. Admits to associated nausea with one episode of vomiting today. She has been taking tylenol without any improvement in her pain. She contacted her PCP today who advised her to return to the ED for further eval. Deneis fever, chills, constipation, diarrhea. Denies history of kidney stones. Denies consuming soda/ tea. Pertinent surgical history includes gastric bypass and cholecystectomy. Related Data Home Medications ?Medication ?Instructions ?Recorded ?Confirmed loperamide 2 mg capsule (Imodium 2 mg PO QID PRN Diarrhea 03/06/20 08/22/24 A-D) omeprazole 40 mg capsule,delayed 40 mg PO BID PRN Stomach Upset 03/11/23 08/22/24 release Previous Rx's ?Medication ?Instructions ?Recorded gabapentin 600 mg tablet See Rx Instructions PO BID #225 04/26/24 tabs sertraline 100 mg tablet 100 mg PO DAILY #30 tabs 04/26/24 levothyroxine 150 mcg tablet 150 mcg PO DAILY #90 tabs 06/05/24 cefuroxime axetil 250 mg tablet 250 mg PO BID 5 days #10 tabs 09/11/24 tamsulosin 0.4 mg capsule 0.4 mg PO BEDTIME #7 caps 09/14/24 Allergies Allergy/AdvReac Type Severity Reaction Status Date / Time oxycodone (From PERCOCET) Allergy Unknown ITCHING Verified 09/15/24 14:19 Review of Systems Review of Systems Yes all other systems are reviewed and are negative [facility] Past Medical History Attestation statement: The following information was validated with the patient. Source: old records reviewed and nursing notes reviewed Medical History Tremor Fatty liver Heart murmur History of shingles Hypothyroid Hx of mammogram Normal pelvic exam DJD (degenerative joint disease), lumbar GERD (gastroesophageal reflux disease) Overweight Insomnia IBS (irritable bowel syndrome) Anxiety Depression Epidermal cyst Surgical History Hx of esophagogastroduodenoscopy (12/24/21) H/O gastric bypass History of esophagogastroduodenoscopy (EGD) Hx of colonoscopy Gastric bypass status for obesity History of hysterectomy History of cholecystectomy Family History Family History Paternal Grandfather History of colon cancer Maternal Grandmother History of breast cancer Mental health disorder Family/Other History of breast cancer Sister Substance use disorder Mental health disorder Maternal Aunt Substance use disorder Maternal Uncle Substance use disorder Paternal Uncle Substance use disorder Maternal Uncle Substance use disorder Mother Mental health disorder Brother Mental health disorder Social History Social History Housing: Apartment Housing Other:: , 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, 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 Are you a primary acute care clinical nurse specialist to a significant other at home: No Do you presently have visiting nurse or other home services: No Alcohol intake: never Patient Tobacco Use Status: Never used Tobacco Smoked in Last 30 Days: No e-Cigarette/Vaping Use: Never Used Use of substances other than those prescribed or required for medical reasons: No Advance Directives: No Advance Directives Information Provided: No Do you have a plan to hurt others: No Plan Patient : No service: No Current occupational status: employed Cognitive needs: No Hearing needs: No Vision needs: No Physical Exam ED Vital Signs: Vital Signs - 24 hr 09/15/24 14:14 09/15/24 17:19 09/15/24 18:59 Temperature 98.3 F Pulse Rate 79 81 Respiratory Rate 17 16 20 Blood Pressure 163/90 H 141/66 H Pulse Oximetry 95 97 Oxygen Delivery Method Room Air Room Air BMI result Body Mass Index 36.6 Hypertensive, vitals are otherwise WNL. Afebrile General: Well appearing, in no acute distress. Skin: Warm, dry, intact. No rashes or lesions. Head: Normocephalic, atraumatic. EENT: Hearing is intact b/l. Conjunctiva clear. Sclera is anicteric. PERRLA. EOM intact. Moist mucous membranes.? Neck: Supple without LAD Cardiac: Chest wall symmetric. RRR Lungs: Normal respiratory effort without accessory muscle use. CTA bilaterally Abdomen: Soft, non-tender, non-distended. No rebound tenderness or guarding. Positive BS x4. +right CVAT Back: No midline spinous or paraspinal tenderness. No step off deformity. Ext: Upper and lower extremities atraumatic, without tenderness, deformity, swelling or erythema Neuro: AOx3. Normal speech. Ambulating with steady gait. Course Course Course Narrative: This is an RME performed by Kt Munoz CNP: Additional HPI, ROS, PE not included below will be deferred to primary provider. Patient is a 49 year female who presents emergency department for evaluation, was initially seen in the emergency department 09/11/2024, was started on cefuroxime with suspicion that hematuria was secondary to urinary tract infection. On current review, urine culture from 09/11/2024 does not show evidence of infection. She presented to urgent care yesterday for worsening right flank and abdominal pain, was prescribed tamsulosin. She continues to have progressive pain associated fevers, chills, nausea and vomiting. Plan: Serum labs, additional imaging such as CT AP deferred to primary provider Reevaluation(s) Reevaluation #1: 7290 -- CBC without leukocytosis or left shift. Normocytic anemia, H and H stable when compared to priors. Chemistry without acute electrolyte abnormality requiring intervention. No TENNILLE. Liver function WNL. Lipase WNL. Urine showing large amount of blood and over 20 RBCs. Trace leukocyte esterase with 6-10 urine WBCs. 0-2 squamous epithelial cells. No urine bacteria. I have reviewed urine culture from 09/11/2024, no bacterial growth. > concern for ureteral stone - will add on ct a/p to further evaluate. > IV toradol + zofran + fluids ordered 1914 --CT abdomen and pelvis showing 1.3 cm x 0.7 cm calculus partially obstructing the right ureteropelvic junction. I did reach out to on-call urologist, dr. cheema, who has reviewed patient's case/scans. Since patient has re-presented to our facility with persistent hematuria and pain, she agrees with admission to medicine for pain management. She states that urologist Dr. Haywood will be in the OR on Tuesday and they will add her on for cysto right stent at that time. > discussed with patient who is agreeable. Will reach out to hospitalist for admission. Medical Decision Making Medical Decision Making [facility] Narrative: 49 year old female with pmhx significant for GERD, hypothyroidism, TIA presents to the ED today for evaluation of hematuria, right flank pain, nausea, and vomiting since Tuesday (6 days ago). Patient is hypertensive. Vitals otherwise WNL. She is afebrile. She is well-appearing and in no acute distress. On exam, obese abdomen, soft, nondistended, nontender to palpation. No rebound or guarding. Active bowel sounds x4. There is right CVAT. Differential diagnosis includes renal colic, hydronephrosis, nephrolithiasis, msk sprain/strain. Lower suspicion for pyelonephritis, UTI. She is s/p cholecystectomy so hepatobiliary pathology less likely. Plan for labs, UA, CT abdomen/pelvis, pain control, IV fluids, re-evaluation. Differential Diagnosis Differential Diagnoses: The differential diagnosis associated with the presentation includes as above. Admission/Observation Consideration of admission/observation: Escalation of care including admission/observation considered patient to be admitted to medicine for pain management secondary to partially obstructing UPJ stone with plan for OR on Tuesday with urology Consult Healthcare Provider Management of the patient was discussed with: Hospitalist (dr. cordova) and Barbering Teacher (urology - dr. cheema) Lab Data [facility] Lab Attestation statement: I reviewed the patient's lab results. as above. 09/15/24 14:42 09/15/24 14:42 Labs: Lab Results 09/15/24 Range/Units 14:42 WBC 7.9 (4.8-10.8) X10*3/uL RBC 3.65 L (4.20-5.50) X10*6/uL Hgb 11.1 L (12.0-16.0) g/dl Hct 34.4 L (37.0-47.0) % MCV 94.2 (80.0-98.0) fL MCH 30.4 (27.0-33.0) pg MCHC 32.3 (31.0-35.0) g/dl RDW 14.0 (11.0-16.0) % Plt Count 331 (160-400) X10*3/uL MPV 8.2 L (9.4-12.3) fL Immature Gran % (Auto) 0.3 (0.0-0.4) % Neut % (Auto) 55.9 (45-73) % Lymph % (Auto) 34.2 (20-40) % [place] % (Auto) 7.4 (2-11) % Eos % (Auto) 1.4 (0-4) % Baso % (Auto) 0.8 (0-2) % Lymph # (Auto) 2.7 (1.2-4.9) X10*3/uL [place] # (Auto) 0.6 (0.1-1.2) X10*3/uL Eos # (Auto) 0.1 (0.0-0.4) X10*3/uL Baso # (Auto) 0.1 (0.0-0.2) X10*3/uL Abs Immat Gran (auto) 0.02 (0.00-0.03) X10*3/uL Absolute Neuts (auto) 4.4 (2.0-8.3) x10*3/uL Absolute Nucleated RBC 0.000 (0.0-0.012) X10*3/uL Nucleated RBC % (auto) 0.0 (0.0-0.2) /100WBC Sodium 142 (135-145) mmol/L Potassium 4.5 (3.3-5.1) mmol/L Chloride 110 H (96-108) mmol/L Carbon Dioxide 26 (22-29) mmol/L Anion Gap 11 L (12-20) BUN 13 (9-16) mg/dL Creatinine 0.79 (0.5-1.4) mg/dL Estim Creat Clear Calc 88.2 Estimated GFR > 60 Random Glucose 94 (60-115) mg/dL Calcium 8.4 (8.4-10.2) mg/dL Total Bilirubin 0.1 (0.0-1.0) mg/dL AST 20 (5-31) U/L ALT 15 (0-31) U/L Alkaline Phosphatase 112 (39-117) U/L Total Protein 7.1 (6.5-8.0) g/dL Albumin 4.0 (3.5-5.0) g/dL Lipase 25 (8-78) U/L Urine Color Yellow Urine Appearance Cloudy Urine pH 5.5 (5.0-9.0) Ur Specific [place] >= 1.030 H (1.005-1.025) Urine Protein 100 (2+) H (Neg-Trace) mg/dL Urine Glucose (UA) Negative (Negative) mg/dL Urine Ketones Negative (Negative) mg/dL Urine Blood Large (3+) H (Negative) Urine Nitrite Negative (Negative) Ur Leukocyte Esterase Trace H (Negative) Urine RBC >20 H (0-2) /HPF Urine WBC 6-10 H (0-5) /HPF Ur Squamous Epith Cells 0-2 (0-2) /HPF Urine Bacteria None Seen (None Seen) Hyaline Casts 0-2 (0-2) /LPF Urine Test NEGATIVE (NEGATIVE) Independent Interpretation I performed an independent interpretation of an: CT Scan Interpretation: CT a/p showing large UPJ stone Radiology Impression Discussion of test interpretation with radiology: I have reviewed the radiologist's reading. Radiologist Impression: Procedure(s): CT abdomen pelvis wo IV con Accession Number(s): [id number] cc: Corry Perez MD; Lisa Higuera~ Report Number: [id number]: Total DLP = 579.00 mGy-cm CLINICAL HISTORY: right flank pain, hematuria Exam: CT Abdomen and Pelvis Without IV Contrast Comparison: 12/10/2022 Findings: The liver density is homogeneous No biliary abnormalities. Gallbladder is surgically absent. The spleen is normal in size No pancreatic ductal dilatation A right renal 1.3 x 0.7 cm calculus is present partially obstructing the right ureteropelvic junction. Few scattered 1-2 mm nonobstructing calculi are also present in the minor calices of both kidneys. Normal bowel caliber. There has been gastric bypass Patricia-en-Y surgery The appendix is normal. No free fluid/free air The abdominal aorta caliber is normal No adenopathy. Bladder outline is smooth. The uterus is not well visualized and presumed to be surgically absent. No suspicious skeletal lesions Impression : 1.3 x 0.7 cm calculus partially obstructing the right ureteropelvic junction. This document has been electronically signed by: Lincoln Mackey MD on 09/15/2024 18:14:43 External Record Review External record reviewed: Inpatient record Prescription Management I considered prescription management with: Pain Medication Social Determinants Patient?s care significantly limited by Social Determinants of Health including: Other Social Determinant of Health Medications Administered Discontinued Medications Generic Name Dose Route Start Last Admin Trade Name Freq PRN Reason Stop Dose Admin Sodium Chloride 1,000 mls @ 999 mls/hr 09/15/24 17:30 09/15/24 18:59 Ns IV 09/15/24 18:30 Infused .Q1H1M JOHN Infusion Ketorolac Tromethamine 15 mg 09/15/24 17:23 09/15/24 17:45 Ketorolac Tromethamine 15 Mg/Ml Vial IVPUSH 09/15/24 17:24 15 mg ONCE ONE Administration Morphine Sulfate 4 mg 09/15/24 18:42 09/15/24 18:59 Morphine Sulfate 4 Mg/Ml Cartridge IVPUSH 09/15/24 18:43 4 mg ONCE ONE Administration Protocol Ondansetron HCl 4 mg 09/15/24 17:23 09/15/24 17:45 Ondansetron Hcl 4 Mg/2 Ml Vial IVPUSH 09/15/24 17:24 4 mg ONCE ONE Administration Critical Care Time Critical Care Time Critical Care Time: Yes Total Critical Care Time: 33 Attestation: Critical care time in the amount of 33 minutes has been provided to the patient in terms of direct patient care, frequent reevaluation, consultation with urology and hospitalist, review and interpretation of medical data and results, and management of potentially life-threatening conditions. This is all outside of any medical procedures. Discharge Plan Discharge Clinical Impression: Ureteropelvic junction calculus Patient Disposition: Admitted As Inpatient Print Language: Tajik
[2024-09-15 14:55] LABS: MANUAL DIFF FLAG NO; UPreg QC Valid YES
[2024-09-15 14:56] LABS: Hematocrit 34.4 % (37.0-47.0); Hemoglobin 11.1 g/dl (12.0-16.0); Imm Gran Abs Auto 0.02 X10*3/uL (0.00-0.03); Imm Gran Pct Auto 0.3 % (0.0-0.4); Lymphocytes Absolute Auto 2.7 X10*3/uL (1.2-4.9); Mean Corpuscular HGB Conc 32.3 g/dl (31.0-35.0); Mean Corpuscular Hemoglobin 30.4 pg (27.0-33.0); Mean Corpuscular Volume 94.2 fL (80.0-98.0); NRBC Abs Auto 0.000 X10*3/uL (0.0-0.012); NRBC Pct Auto 0.0 /100WBC (0.0-0.2); Platelet Count 331 X10*3/uL (160-400); Red Blood Count 3.65 X10*6/uL (4.20-5.50); White Blood Count 7.9 X10*3/uL (4.8-10.8)
[2024-09-15 14:57] LABS: Appearance Urine Cloudy; Glucose Urine UA Negative (Negative); PH 5.5 (5.0-9.0); Specific Gravity - Urine >= 1.030 (1.005-1.025); UMIC TRIGGER UACC YES
[2024-09-15 15:02] LABS: UACC Culture Trigger YES
[2024-09-15 15:12] LABS: Alanine Aminotransferase 15 U/L (0-31); Albumin Level 4.0 g/dL (3.5-5.0); Alkaline Phosphatase 112 U/L (39-117); Anion Gap 11 (12-20); Aspartate Amino Transferase 20 U/L (5-31); Blood Urea Nitrogen 13 mg/dL (9-16); Calcium 8.4 mg/dL (8.4-10.2); Carbon Dioxide 26 mmol/L (22-29); Chloride 110 mmol/L (96-108); Creatinine Clr Calc Pharmacy 88.2; Estimated Glomerular Filt Rate > 60; Lipase 25 U/L (8-78); Potassium 4.5 mmol/L (3.3-5.1); Sodium 142 mmol/L (135-145); Total Protein 7.1 g/dL (6.5-8.0)
[2024-09-15 17:19] VITALS: BP 141/66; PULSE 81; RESP 16; O2SAT 97
--- OUTSIDE RECORDS SUMMARY | 2024-09-15 17:53 | XMS_ITS | Clinical Summary ---
Author Organization [facility] Address [address] [place] [address] Care Team Providers Care Layout Artist Name Role Phone Pcp, No Primary Care [...] 11/11/2020, 03/18/2020, 02/26/2020 Influenza Vaccine 09/14/2024 Insurance [facility] [place] [id number] Care Teams Layout Artist Relationship Specialty Start Date End Date Pcp, No PCP - General General Medicine 11/09/22
[2024-09-15 18:59] VITALS: RESP 20
--- NOTE | 2024-09-15 19:02 | PC.NURSE ---
this rn assumed care of pt, pt resting in stretcher, no acute distress noted, pt medicated per mar by previous RN with this rn at bedside
--- NOTE | 2024-09-15 19:20 | P.HPHOSP_ITS ---
History of Present Illness Date of Service: 09/15/24 Chief Complaint: Flank 49-year-old female with a past medical history of hypothyroidism, TIA, history of gastric bypass, GERD, insomnia, vitamin-D deficiency presented to the hospital today with a chief complaint of right flank pain/hematuria. Patient reports that for about a week she has been having right flank pain and hematuria. Presented to the ER initially and was sent home on antibiotics. Reports that she continued to have the flank pain went to the urgent care today and was given tamsulosin and sent home. But given increasing pain she decided to come to the ER for further evaluation. Reports he is having gross bloody hematuria. Denies any dysuria or urgency. Denies any fevers. Denies any chest pain or palpitations. Review of all other systems is negative except mentioned above ER course: Per ER team, patient noted to have right flank tenderness; CT abdomen pelvis showed 1.3 X 0.7 cm calculus obstructing the right ureteropelvic junction. ER team discussed with Urology who suggested admission to the hospital for pain control and will evaluate the patient on Tuesday morning for possible cystoscopy. [facility] Medical History (Updated 09/15/24 @ 19:23 by Naldo Wheatley MD) Ureteropelvic junction calculus Tremor Fatty liver Heart murmur History of shingles Hypothyroid Hx of mammogram Normal pelvic exam DJD (degenerative joint disease), lumbar GERD (gastroesophageal reflux disease) Overweight Insomnia IBS (irritable bowel syndrome) Anxiety Depression Epidermal cyst Family History Paternal Grandfather History of colon cancer Maternal Grandmother History of breast cancer Mental health disorder Family/Other History of breast cancer Sister Substance use disorder Mental health disorder Maternal Aunt Substance use disorder Maternal Uncle Substance use disorder Paternal Uncle Substance use disorder Maternal Uncle Substance use disorder Mother Mental health disorder Brother Mental health disorder Surgical History Hx of esophagogastroduodenoscopy (12/24/21) H/O gastric bypass History of esophagogastroduodenoscopy (EGD) Hx of colonoscopy Gastric bypass status for obesity History of hysterectomy History of cholecystectomy Social History Housing: Apartment Housing Other:: , 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, 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 Are you a primary pulmonary care nurse to a significant other at home: No Do you presently have visiting nurse or other home services: No Alcohol intake: never Patient Tobacco Use Status: Never used Tobacco Smoked in Last 30 Days: No e-Cigarette/Vaping Use: Never Used Use of substances other than those prescribed or required for medical reasons: No Advance Directives: No Advance Directives Information Provided: No Do you have a plan to hurt others: No Plan Patient : No service: No Current occupational status: employed Cognitive needs: No Hearing needs: No Vision needs: No Meds Allergies Allergy/AdvReac Type Severity Reaction Status Date / Time oxycodone (From PERCOCET) Allergy Unknown ITCHING Verified 09/15/24 14:19 Home Medications ?Medication ?Instructions ?Recorded ?Confirmed ?Last Taken ?Type loperamide 2 mg capsule (Imodium 2 mg PO QID PRN Diarr hea 03/06/20 08/22/24 Unknown History A-D) omeprazole 40 mg capsule,delayed 40 mg PO BID PRN Stom ach Upset 03/11/23 08/22/24 Unknown History release Physical Exam 2 Vital Signs and Narrative: Vital Signs: Last Vital Signs Temp 98.3 F 09/15/24 14:14 Pulse 81 09/15/24 17:19 Resp 20 09/15/24 18:59 BP 141/66 H 09/15/24 17:19 Pulse Ox 97 09/15/24 17:19 O2 Del Method Room Air 09/15/24 17:19 BMI result Body Mass Index 36.6 Results Labs 09/15/24 14:42 09/15/24 14:42 Labs: Laboratory Results - last 24 hr 09/15/24 14:42 MCV 94.2 MCH 30.4 MCHC 32.3 RDW 14.0 Plt Count 331 MPV 8.2 L Immature Gran % (Auto) 0.3 Neut % (Auto) 55.9 Lymph % (Auto) 34.2 [place] % (Auto) 7.4 Eos % (Auto) 1.4 Baso % (Auto) 0.8 Lymph # (Auto) 2.7 [place] # (Auto) 0.6 Eos # (Auto) 0.1 Baso # (Auto) 0.1 Abs Immat Gran (auto) 0.02 Absolute Neuts (auto) 4.4 Absolute Nucleated RBC 0.000 Nucleated RBC % (auto) 0.0 Anion Gap 11 L Estim Creat Clear Calc 88.2 Estimated GFR > 60 Random Glucose 94 Calcium 8.4 Total Bilirubin 0.1 AST 20 ALT 15 Alkaline Phosphatase 112 Total Protein 7.1 Albumin 4.0 Lipase 25 Urine Color Yellow Urine Appearance Cloudy Urine pH 5.5 Ur Specific [place] >= 1.030 H Urine Protein 100 (2+) H Urine Glucose (UA) Negative Urine Ketones Negative Urine Blood Large (3+) H Urine Nitrite Negative Ur Leukocyte Esterase Trace H Urine RBC >20 H Urine WBC 6-10 H Ur Squamous Epith Cells 0-2 Urine Bacteria None Seen Hyaline Casts 0-2 Urine Test NEGATIVE Assessment and Plan (1) Ureteropelvic junction calculus: Status: Acute Plan 49-year-old female with a past medical history of hypothyroidism, TIA, history of gastric bypass, GERD, insomnia, vitamin-D deficiency presented to the hospital today with a chief complaint of right flank pain/hematuria. UPJ stone: Hematuria: UA slightly positive-will empirically cover with ceftriaxone Continue tamsulosin Continue IV fluids Pain control Urology was notified-plan for possible cystoscopy on Tuesday morning. Hypothyroidism: Continue levothyroxine Neuropathy: Continue gabapentin DVT prophylaxis: Lovenox Code status: Full code Quality Stroke Does the patient have a stroke diagnosis?: No VTE Prior VTE?: No VTE Risk Level:: Medical - moderate - high VTE Device Contraindication: Treatment Not Indicated VTE Drug Contraindication: N/A - Med Ordered
--- NOTE | 2024-09-15 19:31 | PC.NURSE ---
per , verbal order for blood cultures and lactic before antibiotic administrations
[2024-09-15] MEDS: Lactated Ringers 1,000 ML 100 ML IVCONT (20:13)
--- NOTE | 2024-09-15 20:18 | PC.NURSE ---
pt medicated per mar, iv fluids administering at this time
[2024-09-15 21:31] VITALS: BP 198/76; PULSE 79; RESP 18; O2SAT 95
[2024-09-15 23:57] VITALS: BP 146/70; PULSE 75; RESP 17; TEMP 37.1; O2SAT 98
[2024-09-15 23:58] VITALS: RESP 18
[2024-09-16] VITALS (7 sets, daily range): BP systolic 114–176; BP diastolic 64–94; PULSE 62–90; RESP 12–18; TEMP 36.4–36.7; O2SAT 93–98; BMI 37.6; BMI 37.1
--- NOTE | 2024-09-16 | PC.NURSE ---
pt medicated per apr for 8/10 abdominal pain. pt ambulatory to bathroom with steady gait
--- NOTE | 2024-09-16 03:08 | PC.NURSE ---
pt reporting 10/10 headache at this time, pt medicated per mar for headache
[2024-09-16 04:40] LABS: MANUAL DIFF FLAG NO
[2024-09-16 04:42] LABS: Hematocrit 33.8 % (37.0-47.0); Hemoglobin 10.9 g/dl (12.0-16.0); Imm Gran Abs Auto 0.02 X10*3/uL (0.00-0.03); Imm Gran Pct Auto 0.2 % (0.0-0.4); Lymphocytes Absolute Auto 3.9 X10*3/uL (1.2-4.9); Mean Corpuscular HGB Conc 32.2 g/dl (31.0-35.0); Mean Corpuscular Hemoglobin 30.5 pg (27.0-33.0); Mean Corpuscular Volume 94.7 fL (80.0-98.0); NRBC Abs Auto 0.000 X10*3/uL (0.0-0.012); NRBC Pct Auto 0.0 /100WBC (0.0-0.2); Platelet Count 314 X10*3/uL (160-400); Red Blood Count 3.57 X10*6/uL (4.20-5.50); White Blood Count 8.2 X10*3/uL (4.8-10.8)
[2024-09-16 05:05] LABS: Alanine Aminotransferase 15 U/L (0-31); Albumin Level 3.6 g/dL (3.5-5.0); Alkaline Phosphatase 108 U/L (39-117); Anion Gap 10 (12-20); Aspartate Amino Transferase 24 U/L (5-31); Blood Urea Nitrogen 11 mg/dL (9-16); Calcium 8.5 mg/dL (8.4-10.2); Carbon Dioxide 25 mmol/L (22-29); Chloride 111 mmol/L (96-108); Creatinine Clr Calc Pharmacy 107.3; Estimated Glomerular Filt Rate > 60; Potassium 4.8 mmol/L (3.3-5.1); Sodium 141 mmol/L (135-145); Total Protein 6.3 g/dL (6.5-8.0)
[2024-09-16] MEDS: Lactated Ringers 1,000 ML 100 ML IVCONT ×2 (06:09→16:26)
--- NOTE | 2024-09-16 06:25 | PC.NURSE ---
pt requesting new iv placement as IV pump is beeping. 20g placed in right hand and iv fluids administering through that iv. pt medicated per jordon vsmelody. at bedside with pt
[2024-09-16] MEDS: 0.9 % Sodium Chloride Flush 3 ML SYRINGE IVFLUSH ×2 (07:26→20:21)
--- NOTE | 2024-09-16 11:34 | PHA.MEDREC ---
Pharmacy Consult ? Medication Reconciliation Pharmacy has completed the medication reconciliation, spoke to patient to confirm medications. Pt stated she only took one dose of tamsulosin and was hospitalized after, was for 7 days.
--- NOTE | 2024-09-16 13:13 | P.CNUR_ITS ---
History of Present Illness Consult details Consult date: 09/16/24 Narrative: Consult for Right Flank pain, hematuria, Right UPJ stone 49-year-old female with a past medical history of hypothyroidism, TIA, history of gastric bypass, GERD, insomnia, vitamin-D deficiency presented to the hospital with chief complaint of right flank pain/hematuria. CTAP-right UPJ stone Review of Systems 2 Review of Systems: Yes all other systems are reviewed and are negative Constitutional: Constitutional: Reports no additional constitutional complaints Eyes: Eyes: Reports no additional eye complaints ENT: Reports system reviewed and no additional complaints, except as documented Cardiovascular: Cardiovascular: Reports no additional cardiovascular complaints Respiratory: Respiratory: Reports no additional respiratory complaints Gastrointestinal: Gastrointestinal: Reports no additional gastrointestinal complaints Genitourinary: Genitourinary: Reports as per HPI Musculoskeletal: Musculoskeletal: Reports no additional musculoskeletal complaints Integumentary/Breasts: Skin/Breast: Reports system reviewed and no additional complaints, except as docu Neurologic: Reports system reviewed and no additional complaints, except as documented Psychiatric: Psychiatric: Reports no additional psychiatric complaints Endocrine: Endocrine: Reports no additional endocrine complaints Hematologic/Lymphatic: Hematologic/Lymphatic: Reports no additional hematologic/lymphatic complaints Allergic/Immunologic: Allergic/Immunologic: Reports no additional allergic/immunologic complaints PMFSH Past Medical History Medical History Ureteropelvic junction calculus Tremor Fatty liver Heart murmur History of shingles Hypothyroid Hx of mammogram Normal pelvic exam DJD (degenerative joint disease), lumbar GERD (gastroesophageal reflux disease) Overweight Insomnia IBS (irritable bowel syndrome) Anxiety Depression Epidermal cyst Family History Family History Paternal Grandfather History of colon cancer Maternal Grandmother History of breast cancer Mental health disorder Family/Other History of breast cancer Sister Substance use disorder Mental health disorder Maternal Aunt Substance use disorder Maternal Uncle Substance use disorder Paternal Uncle Substance use disorder Maternal Uncle Substance use disorder Mother Mental health disorder Brother Mental health disorder Surgical History Surgical History Hx of esophagogastroduodenoscopy (12/24/21) H/O gastric bypass History of esophagogastroduodenoscopy (EGD) Hx of colonoscopy Gastric bypass status for obesity History of hysterectomy History of cholecystectomy Social History Social History Household Members: Spouse Housing: Apartment Housing Other:: , 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 If so, by whom?: No Do you feel safe in your current relationship?: Yes Is there a partner from a previous relationship who is making you feel unsafe now?: No Are you made to feel afraid or neglected: No Advance Directives: No Advance Directives Information Provided: No Do you have a plan to hurt others: No Plan Recently lost weight without trying: No Eating poorly because of decreased appetite: Yes Nutrition Risks: No Nutritional Risk Patient : No : No Poor oral hygiene: No service: No Current occupational status: employed Cognitive needs: No Hearing needs: No Vision needs: No Meds Allergies Allergy/AdvReac Type Severity Reaction Status Date / Time oxycodone (From PERCOCET) Allergy Unknown ITCHING Verified 09/15/24 14:19 Active Medications: Current Medications Acetaminophen (Acetaminophen 325 Mg Tablet) 650 mg PO Q6H PRN PRN Reason: Pain, Mild 1-3,fever,headache Last Admin: 09/16/24 03:00 Dose: 650 mg Calcium Carbonate (Calcium Carbonate 750 Mg Tab.Chew) 750 mg PO Q4H PRN PRN Reason: Heartburn Ceftriaxone Sodium (Ceftriaxone Sodium 1 Gm Vial) 1 gm IVPUSH Q24H [facility] Last Admin: 09/15/24 20:13 Dose: 1 gm Enoxaparin Sodium (Enoxaparin Sodium 40 Mg/0.4 Ml Syringe) 40 mg SUBCUT Q24H [facility] Last Admin: 09/15/24 20:13 Dose: Not Given Gabapentin (Gabapentin 600 Mg Tablet) 600 mg PO BID [facility] Last Admin: 09/16/24 08:50 Dose: 600 mg Hydromorphone HCl (Hydromorphone Hcl 0.5 Mg/0.5 Ml Syringe) 0.5 mg IVPUSH Q4H PRN; Protocol PRN Reason: Pain, Severe (Pain Scale 7-10) Last Admin: 09/16/24 08:55 Dose: 0.5 mg Lactated Ringer's (Lr) 1,000 mls @ 100 mls/hr IVCONT .Q10H [facility] Last Admin: 09/16/24 06:09 Dose: 100 mls/hr Levothyroxine Sodium (Levothyroxine Sodium 150 Mcg Tablet) 150 mcg PO DAILY@0600 [facility] Last Admin: 09/16/24 06:09 Dose: 150 mcg Magnesium Hydroxide (Milk Of Magnesia 30 Ml Oral.Susp) 30 ml PO DAILY PRN PRN Reason: Constipation Melatonin (Melatonin 3 Mg Tablet) 6 mg PO BEDTIME PRN PRN Reason: Insomnia Omeprazole (Omeprazole 40 Mg Capsule.Dr) 40 mg PO DAILY@0630 [facility] Last Admin: 09/16/24 11:45 Dose: 40 mg Ondansetron HCl (Ondansetron Hcl 4 Mg/2 Ml Vial) 4 mg IVPUSH Q8H PRN PRN Reason: Nausea and Vomiting Last Admin: 09/16/24 12:27 Dose: 4 mg Sodium Chloride (0.9 % Sodium Chloride Flush 3 Ml Syringe) 3 ml IVFLUSH QSHIFT [facility] Last Admin: 09/16/24 07:26 Dose: 3 ml Home Medications ?Medication ?Instructions ?Recorded ?Confirmed ?Last Taken ?Type loperamide 2 mg capsule (Imodium 2 mg PO QID PRN Diarr hea 03/06/20 09/16/24 Unknown History A-D) omeprazole 40 mg capsule,delayed 40 mg PO DAILY PRN St omach Upset 03/11/23 09/16/24 Unknown History release acetaminophen 325 mg tablet 650 mg PO Q6H PRN Pain 05/0809/16/24 Unknown History gabapentin 600 mg tablet 600 mg PO DAILY 09/16/2405/0809/16/24 History gabapentin 600 mg tablet 900 mg PO BEDTIME 09/16/24 0 09/16/24 09/15/24 History levothyroxine 150 mcg tablet 150 mcg PO DAILY@0600 05/0809/16/24 09/16/24 History melatonin 5 mg tablet 10 mg PO BEDTIME 09/16/24 Unknown History sertraline 100 mg tablet 100 mg PO BEDTIME 09/16/24 0 09/16/24 09/15/24 History Physical Exam 2 Vital Signs: Vital Signs: Last Vital Signs Temp 97.9 F 09/16/24 10:12 Pulse 62 09/16/24 10:12 Resp 18 09/16/24 10:12 BP 176/71 H 09/16/24 10:12 Pulse Ox 94 09/16/24 10:12 O2 Del Method Room Air 09/16/24 10:12 BMI result Body Mass Index 37.1 Const: General: cooperative, healthy appearing and no acute distress O rientation/consciousness: patient oriented x3 HEENT: Head: Yes normal to inspection, Yes normocephalic and Yes atraumatic Eyes: Conjunctivae: conjunctivae normal Neck: Neck: Yes normal visual inspection and Yes trachea midline Chest: Chest palpation & inspection: normal inspection of the chest Resp: Effort & Inspection: normal respiratory effort GI: Inspection: Yes normal to inspection : General: Yes CVA tenderness (Right) Back/Spine/Pelvis: Back: CVA tenderness (Right) Neuro: General: patient oriented x3 Psych: Appearance: grossly normal Results Labs 09/16/24 04:32 09/16/24 04:32 Labs: Abnormal lab results 09/15/24 09/16/24 Range/Units 14:42 04:32 RBC 3.65 L 3.57 L (4.20-5.50) X10*6/uL Hgb 11.1 L 10.9 L (12.0-16.0) g/dl Hct 34.4 L 33.8 L (37.0-47.0) % MPV 8.2 L 8.1 L (9.4-12.3) fL Neut % (Auto) 42.2 L (45-73) % Lymph % (Auto) 47.2 H (20-40) % Chloride 110 H 111 H (96-108) mmol/L Anion Gap 11 L 10 L (12-20) Total Protein 6.3 L (6.5-8.0) g/dL Ur Specific [place] >= 1.030 H (1.005-1.025) Urine Protein 100 (2+) H (Neg-Trace) mg/dL Urine Blood Large (3+) H (Negative) Ur Leukocyte Esterase Trace H (Negative) Urine RBC >20 H (0-2) /HPF Urine WBC 6-10 H (0-5) /HPF Short CBC 09/15/24 09/16/24 Range/Units 14:42 04:32 WBC 7.9 8.2 (4.8-10.8) X10*3/uL Hgb 11.1 L 10.9 L (12.0-16.0) g/dl Hct 34.4 L 33.8 L (37.0-47.0) % Plt Count 331 314 (160-400) X10*3/uL BMP 09/15/24 09/16/24 14:42 04:32 Sodium 142 141 Potassium 4.5 4.8 Chloride 110 H 111 H Carbon Dioxide 26 25 BUN 13 11 Creatinine 0.79 0.65 Calcium 8.4 8.5 Liver Function 09/15/24 09/16/24 Range/Units 14:42 04:32 Total Bilirubin 0.1 0.1 (0.0-1.0) mg/dL AST 20 24 (5-31) U/L ALT 15 15 (0-31) U/L Alkaline Phosphatase 112 108 (39-117) U/L Albumin 4.0 3.6 (3.5-5.0) g/dL Urine 09/15/24 Range/Units 14:42 Urine Color Yellow Urine Appearance Cloudy Urine pH 5.5 (5.0-9.0) Ur Specific [place] >= 1.030 H (1.005-1.025) Urine Protein 100 (2+) H (Neg-Trace) mg/dL Urine Glucose (UA) Negative (Negative) mg/dL Urine Test NEGATIVE (NEGATIVE) Imaging Abdomen CT scan report/results: report reviewed and image reviewed CT scan - pelvis: report reviewed and image reviewed Additional studies: Date of Service: 09/15/24 CLINICAL HISTORY: right flank pain, hematuria Exam: CT Abdomen and Pelvis Without IV Contrast Comparison: 12/10/2022 Findings: The liver density is homogeneous No biliary abnormalities. Gallbladder is surgically absent. The spleen is normal in size No pancreatic ductal dilatation A right renal 1.3 x 0.7 cm calculus is present partially obstructing the right ureteropelvic junction. Few scattered 1-2 mm nonobstructing calculi are also present in the minor calices of both kidneys. Normal bowel caliber. There has been gastric bypass Patricia-en-Y surgery The appendix is normal. No free fluid/free air The abdominal aorta caliber is normal No adenopathy. Bladder outline is smooth. The uterus is not well visualized and presumed to be surgically absent. No suspicious skeletal lesions Impression : 1.3 x 0.7 cm calculus partially obstructing the right ureteropelvic Assessment and Plan (1) Right flank pain: Status: Acute (2) Right renal stone: Status: Acute Plan NPO after MN Cystoscopy right ureteral stent possible ureteroscopy, laser. Procedures Date of Service Date of Service: 09/17/24
--- NOTE | 2024-09-16 13:41 | MHC.CM.PN ---
Patient lives in an apt w/ her . Functionally independent. Denies use of DME or services. PCP Corry Perez MD Completed HCP naming [facility]'s - her , Luc, and her son, Kurt. DP: Home self care, family transport. CM will continue to follow.
--- NOTE | 2024-09-16 14:13 | HO.PM.IMPN ---
Subjective Subjective Date of Service: 09/16/24 Interval History: Pt seen and evaluated resting comfortably in bed Pain moderately-well controlled N/V well controlled; has been able to tolerate diet Review of Systems Review of Systems: Yes all other systems are reviewed and are negative Physical Exam Exam: Exam: General: AOx3, no acute distress Resp: CTA bilaterally CVS: S1, S2, RRR GI: +BS, no distention, right sided abd tenderness Back: right CVA tenderness Skin: Warm, dry Neuro: Cranial nerves II-XII grossly intact bilaterally. Motor grossly intact bilaterally Extremities: No edema Psych: Appropriate affect Vital Signs: Vital Signs: Last Vital Signs Temp 97.9 F 09/16/24 10:12 Pulse 62 09/16/24 10:12 Resp 17 09/16/24 14:06 BP 176/71 H 09/16/24 10:12 Pulse Ox 94 09/16/24 10:12 O2 Del Method Room Air 09/16/24 10:12 BMI result Body Mass Index 37.1 Objective Data Active Medications Acetaminophen (Acetaminophen 325 Mg Tablet) 650 mg PO Q6H PRN PRN Reason: Pain, Mild 1-3,fever,headache Last Admin: 09/16/24 03:00 Dose: 650 mg Documented By: DARION Calcium Carbonate (Calcium Carbonate 750 Mg Tab.Chew) 750 mg PO Q4H PRN PRN Reason: Heartburn Ceftriaxone Sodium (Ceftriaxone Sodium 1 Gm Vial) 1 gm IVPUSH Q24H [facility] Last Admin: 09/15/24 20:13 Dose: 1 gm Documented By: DARION Enoxaparin Sodium (Enoxaparin Sodium 40 Mg/0.4 Ml Syringe) 40 mg SUBCUT Q24H [facility] Last Admin: 09/15/24 20:13 Dose: Not Given Documented By: DARION Non-Admin Reason: Patient Refused Gabapentin (Gabapentin 600 Mg Tablet) 900 mg PO BEDTIME [facility] Gabapentin (Gabapentin 600 Mg Tablet) 600 mg PO DAILY [facility] Hydromorphone HCl (Hydromorphone Hcl 0.5 Mg/0.5 Ml Syringe) 0.5 mg IVPUSH Q4H PRN; Protocol PRN Reason: Pain, Severe (Pain Scale 7-10) Last Admin: 09/16/24 14:06 Dose: 0.5 mg Documented By: GINETTE Lactated Ringer's (Lr) 1,000 mls @ 100 mls/hr IVCONT .Q10H [facility] Last Admin: 09/16/24 06:09 Dose: 100 mls/hr Documented By: DARION Levothyroxine Sodium (Levothyroxine Sodium 150 Mcg Tablet) 150 mcg PO DAILY@0600 [facility] Loperamide HCl (Loperamide Hcl 2 Mg Capsule) 2 mg PO QID PRN PRN Reason: Diarrhea Magnesium Hydroxide (Milk Of Magnesia 30 Ml Oral.Susp) 30 ml PO DAILY PRN PRN Reason: Constipation Melatonin (Melatonin 3 Mg Tablet) 6 mg PO BEDTIME PRN PRN Reason: Insomnia Omeprazole (Omeprazole 40 Mg Capsule.Dr) 40 mg PO DAILY@0630 [facility] Last Admin: 09/16/24 11:45 Dose: 40 mg Documented By: GINETTE Ondansetron HCl (Ondansetron Hcl 4 Mg/2 Ml Vial) 4 mg IVPUSH Q8H PRN PRN Reason: Nausea and Vomiting Last Admin: 09/16/24 12:27 Dose: 4 mg Documented By: GINETTE Sertraline HCl (Sertraline Hcl 100 Mg Tablet) 100 mg PO BEDTIME [facility] Sodium Chloride (0.9 % Sodium Chloride Flush 3 Ml Syringe) 3 ml IVFLUSH QSHIFT [facility] Last Admin: 09/16/24 07:26 Dose: 3 ml Documented By: EDEN Tamsulosin HCl (Tamsulosin Hcl 0.4 Mg Capsule) 0.4 mg PO DAILY [facility] Labs 09/16/24 04:32 09/16/24 04:32 Labs: Laboratory Results - last 24 hr 09/15/24 09/15/24 09/16/24 14:42 20:12 04:32 MCV 94.2 94.7 MCH 30.4 30.5 MCHC 32.3 32.2 RDW 14.0 13.8 Plt Count 331 314 MPV 8.2 L 8.1 L Immature Gran % (Auto) 0.3 0.2 Neut % (Auto) 55.9 42.2 L Lymph % (Auto) 34.2 47.2 H [place] % (Auto) 7.4 7.7 Eos % (Auto) 1.4 2.1 Baso % (Auto) 0.8 0.6 Lymph # (Auto) 2.7 3.9 [place] # (Auto) 0.6 0.6 Eos # (Auto) 0.1 0.2 Baso # (Auto) 0.1 0.1 Abs Immat Gran (auto) 0.02 0.02 Absolute Neuts (auto) 4.4 3.4 Absolute Nucleated RBC 0.000 0.000 Nucleated RBC % (auto) 0.0 0.0 Anion Gap 11 L 10 L Estim Creat Clear Calc 88.2 107.3 Estimated GFR > 60 > 60 Random Glucose 94 84 Lactic Acid 0.9 Calcium 8.4 8.5 Total Bilirubin 0.1 0.1 AST 20 24 ALT 15 15 Alkaline Phosphatase 112 108 Total Protein 7.1 6.3 L Albumin 4.0 3.6 Lipase 25 Urine Color Yellow Urine Appearance Cloudy Urine pH 5.5 Ur Specific [place] >= 1.030 H Urine Protein 100 (2+) H Urine Glucose (UA) Negative Urine Ketones Negative Urine Blood Large (3+) H Urine Nitrite Negative Ur Leukocyte Esterase Trace H Urine RBC >20 H Urine WBC 6-10 H Ur Squamous Epith Cells 0-2 Urine Bacteria None Seen Hyaline Casts 0-2 Urine Test NEGATIVE Microbiology Microbiology Results: Microbiology 09/15/24 Unknown Urine Culture - Final Urine clean catch - Clean Catch Midstream Assessment and Plan (1) Ureteropelvic junction calculus: Status: Acute Plan 49-year-old female with a past medical history of hypothyroidism, TIA, history of gastric bypass, GERD, insomnia, vitamin-D deficiency presented to the hospital today with a chief complaint of right flank pain/hematuria. UPJ stone CT showing 1.3 x 0.7 cm calculus partially obstructing the right ureteropelvic junction. Continue tamsulosin Continue IV fluids Pain control Urology was notified-plan for possible cystoscopy on Tuesday morning. Diet at tolerated, NPO after midnight Question of UTI UA concerning for possible UTI; will empirically cover with ceftriaxone, day 2 No sepsis Follow urine culture Hypothyroidism: Continue levothyroxine Neuropathy: Continue gabapentin DVT prophylaxis: Lovenox Code status: Full code Requires additional hospitalization for pain management, specialist consultation, and stenting in the morning. Quality Stroke Does the patient have a stroke diagnosis?: No VTE Prior VTE?: No VTE Risk Level:: Medical - moderate - high VTE Device Contraindication: Treatment Not Indicated VTE Drug Contraindication: N/A - Med Ordered
[2024-09-17] VITALS (11 sets, daily range): BP systolic 116–183; BP diastolic 56–91; PULSE 58–82; RESP 14–17; TEMP 36.1–37.7; O2SAT 92–99
[2024-09-17] MEDS: Lactated Ringers 1,000 ML 100 ML IVCONT ×2 (01:28→11:25)
--- NOTE | 2024-09-17 10:24 | MHC.CM.PN ---
Per ROUNDS discussion, Patient is not yet medically cleared for dc (possible stenting today); home is the goal and CM will continue to follow.
[2024-09-17] MEDS: Lactated Ringers 1,000 ML 50 ML IVCONT (14:21)
--- NOTE | 2024-09-17 15:35 | MHC.SHP ---
Pre-Procedural Eval Section A - 24 Hr Update-Section A only Date of Service: 09/17/24 The patient is an INPATIENT: Yes Changes since office visit: No Cold of Flu in the past 2 weeks, No New Medical Problems, No Changes in Medication and No Patient answered all questions The patient has been examined within 24 hours of the surgical procedure. The History & Physical has been completed within 30 days and I have reviewed it.: Yes Section B - Complete if H&P > 30 days Chief Complaint: upv stone Details of Present Illness: First-time stone former. Right UPJ stone. Plan cystoscopy, retrograde, stent placement Relevant Family History (Specify if Yes): No Relevant Social History: None Present Medications: see Short Stay Collaborative assessment Medical History: No relevant PMH History of Previous Operations: No relevant previous surgery Allergies: Allergies Allergy/AdvReac Type Severity Reaction Status Date / Time oxycodone (From PERCOCET) Allergy Unknown ITCHING Verified 09/15/24 14:19 Review of Systems Sugical H&P ROS: Negative: Constitution, Cardiovascular, Respiratory, Neurological, Psychiatric, Hem-Onc, Allergic/Immunologic, Gastrointestinal, Genitourinary, Musculoskeletal, Integumentary, Endocrine and Eyes/Ears/Nose/Throat Exam Surgical H&P Exam: Normal: HEENT, Normal: Heart, Normal: Lungs, Normal: Extremities, Normal: Abdomen, Normal: Skin and Normal: Neurological Plan Diagnosis/Plan: Unchanged I have reviewed the history and physical and performed a pertinent physical examination on my patient. No changes have occurred unless specified. Time Spent With Patient Time: Total time managing care of this patient today ____ minutes.
--- NOTE | 2024-09-17 15:37 | HO.ANESPROP2 ---
HPI - Anesthesia Eval Consult details Narrative: For cysto, stent PMFSH Active Problems Active Problems: All Active Problems (Updated 09/16/24 @ 13:16 by Chidi Villalobos MD) Right renal stone (Acute) Right flank pain (Acute) Ureteropelvic junction calculus (Acute) Vitamin D deficiency (Acute) TIA (transient ischemic attack) (Acute) Postmenopausal (Acute) UTI (urinary tract infection) (Acute) Sinusitis (Acute) Tremor (Acute) Annual physical exam (Acute) Abdominal pain (Acute) H/O gastric bypass (Acute) Insomnia (Acute) Hypothyroid (Acute) Hx of mammogram (Acute) Normal pelvic exam (Acute) DJD (degenerative joint disease), lumbar (Acute) GERD (gastroesophageal reflux disease) (Acute) Overweight (Acute) Hx of colonoscopy (Acute) Epidermal cyst (Acute) Past Medical History Medical History Ureteropelvic junction calculus Tremor Fatty liver Heart murmur History of shingles Hypothyroid Hx of mammogram Normal pelvic exam DJD (degenerative joint disease), lumbar GERD (gastroesophageal reflux disease) Overweight Insomnia IBS (irritable bowel syndrome) Anxiety Depression Epidermal cyst Family History Family History Paternal Grandfather History of colon cancer Maternal Grandmother History of breast cancer Mental health disorder Family/Other History of breast cancer Sister Substance use disorder Mental health disorder Maternal Aunt Substance use disorder Maternal Uncle Substance use disorder Paternal Uncle Substance use disorder Maternal Uncle Substance use disorder Mother Mental health disorder Brother Mental health disorder Family history of problems with anesthesia: No Surgical History Surgical History Hx of esophagogastroduodenoscopy (12/24/21) H/O gastric bypass History of esophagogastroduodenoscopy (EGD) Hx of colonoscopy Gastric bypass status for obesity History of hysterectomy History of cholecystectomy History of Problems with Anesthesia: No Social History Social History Household Members: Spouse Housing: Apartment Housing Other:: , 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 If so, by whom?: No Do you feel safe in your current relationship?: Yes Is there a partner from a previous relationship who is making you feel unsafe now?: No Are you made to feel afraid or neglected: No Advance Directives: No Advance Directives Information Provided: No Do you have a plan to hurt others: No Plan Recently lost weight without trying: No Eating poorly because of decreased appetite: Yes Nutrition Risks: No Nutritional Risk Patient : No : No Poor oral hygiene: No service: No Current occupational status: employed Cognitive needs: No Hearing needs: No Vision needs: No Meds Allergies Allergy/AdvReac Type Severity Reaction Status Date / Time oxycodone (From PERCOCET) Allergy Unknown ITCHING Verified 09/15/24 14:19 Active Medications: Current Medications Acetaminophen (Acetaminophen 325 Mg Tablet) 650 mg PO Q6H PRN PRN Reason: Pain, Mild 1-3,fever,headache Last Admin: 09/17/24 08:37 Dose: 650 mg Calcium Carbonate (Calcium Carbonate 750 Mg Tab.Chew) 750 mg PO Q4H PRN PRN Reason: Heartburn Ceftriaxone Sodium (Ceftriaxone Sodium 1 Gm Vial) 1 gm IVPUSH Q24H [facility] Last Admin: 09/16/24 20:20 Dose: 1 gm Enoxaparin Sodium (Enoxaparin Sodium 40 Mg/0.4 Ml Syringe) 40 mg SUBCUT Q24H [facility] Last Admin: 09/16/24 20:21 Dose: Not Given Gabapentin (Gabapentin 600 Mg Tablet) 900 mg PO BEDTIME [facility] Last Admin: 09/16/24 20:20 Dose: 900 mg Gabapentin (Gabapentin 600 Mg Tablet) 600 mg PO DAILY [facility] Last Admin: 09/17/24 07:42 Dose: 600 mg Hydromorphone HCl (Hydromorphone Hcl 0.5 Mg/0.5 Ml Syringe) 0.5 mg IVPUSH Q4H PRN; Protocol PRN Reason: Pain, Severe (Pain Scale 7-10) Last Admin: 09/17/24 13:22 Dose: 0.5 mg Lactated Ringer's (Lr) 1,000 mls @ 100 mls/hr IVCONT .Q10H [facility] Last Admin: 09/17/24 11:25 Dose: 100 mls/hr Lactated Ringer's (Lr) 1,000 mls @ 50 mls/hr IVCONT .Q20H [facility] Last Admin: 09/17/24 14:21 Dose: 50 mls/hr Levothyroxine Sodium (Levothyroxine Sodium 150 Mcg Tablet) 150 mcg PO DAILY@0600 [facility] Last Admin: 09/17/24 05:21 Dose: 150 mcg Loperamide HCl (Loperamide Hcl 2 Mg Capsule) 2 mg PO QID PRN PRN Reason: Diarrhea Magnesium Hydroxide (Milk Of Magnesia 30 Ml Oral.Susp) 30 ml PO DAILY PRN PRN Reason: Constipation Melatonin (Melatonin 3 Mg Tablet) 6 mg PO BEDTIME PRN PRN Reason: Insomnia Omeprazole (Omeprazole 40 Mg Capsule.Dr) 40 mg PO DAILY@0630 [facility] Last Admin: 09/17/24 05:21 Dose: 40 mg Ondansetron HCl (Ondansetron Hcl 4 Mg/2 Ml Vial) 4 mg IVPUSH Q8H PRN PRN Reason: Nausea and Vomiting Last Admin: 09/16/24 20:20 Dose: 4 mg Sertraline HCl (Sertraline Hcl 100 Mg Tablet) 100 mg PO BEDTIME [facility] Last Admin: 09/16/24 20:21 Dose: 100 mg Sodium Chloride (0.9 % Sodium Chloride Flush 3 Ml Syringe) 3 ml IVFLUSH QSHIFT [facility] Last Admin: 09/17/24 07:35 Dose: Not Given Tamsulosin HCl (Tamsulosin Hcl 0.4 Mg Capsule) 0.4 mg PO DAILY [facility] Last Admin: 09/17/24 07:43 Dose: 0.4 mg Home Medications ?Medication ?Instructions ?Recorded ?Confirmed ?Last Taken ?Type loperamide 2 mg capsule (Imodium 2 mg PO QID PRN Diarrhea 03/06/20 09/16/24 Unknown History A-D) omeprazole 40 mg capsule,delayed 40 mg PO DAILY PRN Stomach Upset 03/11/23 09/16/24 Unknown History release acetaminophen 325 mg tablet 650 mg PO Q6H PRN Pain 09/16/24 09/16/24 Unknown History gabapentin 600 mg tablet 600 mg PO DAILY 09/16/24 09/16/24 09/16/24 History gabapentin 600 mg tablet 900 mg PO BEDTIME 09/16/24 09/16/24 09/15/24 History levothyroxine 150 mcg tablet 150 mcg PO DAILY@0600 09/16/24 09/16/24 09/16/24 History melatonin 5 mg tablet 10 mg PO BEDTIME 09/16/24 09/16/24 Unknown History sertraline 100 mg tablet 100 mg PO BEDTIME 09/16/24 09/16/24 09/15/24 History Exam Height,Weight and Vital Signs: Height 5 ft 2 in Weight 91.9 kg Last Vital Signs Temp 97.9 F 09/17/24 14:19 Pulse 63 09/17/24 14:19 Resp 14 09/17/24 14:19 BP 183/82 H 09/17/24 14:19 Pulse Ox 97 09/17/24 14:19 O2 Del Method Room Air 09/17/24 14:19 Pertinent Lab Results Pertinent Lab Results: Laboratory Tests 09/15/24 09/15/24 09/16/24 14:42 20:12 04:32 WBC 7.9 8.2 RBC 3.65 L 3.57 L Hgb 11.1 L 10.9 L Hct 34.4 L 33.8 L MCV 94.2 94.7 MCH 30.4 30.5 MCHC 32.3 32.2 RDW 14.0 13.8 Plt Count 331 314 MPV 8.2 L 8.1 L Immature Gran % (Auto) 0.3 0.2 Neut % (Auto) 55.9 42.2 L Lymph % (Auto) 34.2 47.2 H [place] % (Auto) 7.4 7.7 Eos % (Auto) 1.4 2.1 Baso % (Auto) 0.8 0.6 Lymph # (Auto) 2.7 3.9 [place] # (Auto) 0.6 0.6 Eos # (Auto) 0.1 0.2 Baso # (Auto) 0.1 0.1 Abs Immat Gran (auto) 0.02 0.02 Absolute Neuts (auto) 4.4 3.4 Absolute Nucleated RBC 0.000 0.000 Nucleated RBC % (auto) 0.0 0.0 Sodium 142 141 Potassium 4.5 4.8 Chloride 110 H 111 H Carbon Dioxide 26 25 Anion Gap 11 L 10 L BUN 13 11 Creatinine 0.79 0.65 Estim Creat Clear Calc 88.2 107.3 Estimated GFR > 60 > 60 Random Glucose 94 84 Lactic Acid 0.9 Calcium 8.4 8.5 Total Bilirubin 0.1 0.1 AST 20 24 ALT 15 15 Alkaline Phosphatase 112 108 Total Protein 7.1 6.3 L Albumin 4.0 3.6 Lipase 25 Urine Color Yellow Urine Appearance Cloudy Urine pH 5.5 Ur Specific Chamberlain >= 1.030 H Urine Protein 100 (2+) H Urine Glucose (UA) Negative Urine Ketones Negative Urine Blood Large (3+) H Urine Nitrite Negative Ur Leukocyte Esterase Trace H Urine RBC >20 H Urine WBC 6-10 H Ur Squamous Epith Cells 0-2 Urine Bacteria None Seen Hyaline Casts 0-2 Urine Test NEGATIVE Airway Mallampati Class: II TM Dist: <=3cm Neck ROM: Full Loose/Missing/Broken Teeth: No Heart: ok Lungs: ok Assessment and Plan Assessment Anesthesia Assessment: Anesthesia Plan Discussed and Chart Reviewed Final Anesthetic Review Family History of Problems with Anesthesia: No History of Problems with Anesthesia: No NPO: Yes ASA Class: III Final Preanesthetic Review: No Changes in Pt Med Stat, Meds/Allgs Chart Reviewed, Consent Obtained/Reviewed and Anes Risks/Benef Reviewed Patient Risk: Intermediate Procedure Risk: Low Anesthetic Plan Anesthetic Plan: GA and Agree w/ Assess. and Plan Disposition: Standard PACU
--- NOTE | 2024-09-17 16:18 | W.PM.OPN ---
Operative Note Operative Note Date of Service: 09/17/24 Narrative: PreOperative Diagnosis: Right UPJ stone Post Operative Diagnosis: Right UPJ stone Procedure: Cystoscopy, right retrograde, right stent placement Surgeon: Dr Aamir Haywood Anesthesia: Sedation Indications for procedure: Obstructing right UPJ stone with pain Procedure: After informed consent was verified the patient was brought to the operating room and placed in a supine position. Anesthesia was administered per protocol. The patient was placed in modified dorsal lithotomy position and prepped and draped in a sterile fashion. A safety pause time-out was performed. Laterality of procedure and antibiotics were confirmed, appropriate imaging was available A 22 [place] cystoscope was introduced per urethra. No abnormality was noted of urethra or bladder. Both ureteric orifices were seen in a normal position. The right ureter was cannulated with an open ended catheter and a retrograde examination was performed. Obstructing stone at right UPJ seen . A Sensor guidewire was placed under fluoroscopy and a good coil was seen within the renal pelvis. A 6 [place] by 22 cm double J stent was advanced over the wire and up to the level of the renal pelvis under fluoroscopic and direct visualization. The stent was seen with appropriate coil within the renal pelvis and in the bladder after deployment. The patient tolerated the procedure well and was transferred in a stable condition to the recovery area. Pathology: Drains: As above
[2024-09-17] MEDS: 0.9 % Sodium Chloride Flush 3 ML SYRINGE IVFLUSH (17:06)
--- NOTE | 2024-09-17 18:24 | P.DS_ITS ---
DS: Providers Provider Date of Service: 09/17/24 Date of admission: 09/15/24 19:17 Date of discharge: 09/17/24 Primary care physician: Corry Perez MD Consults: 09/15/24 19:16 Consult to Urology Routine Consulting Provider: [facility] Reason for consultation: UPV stone. DS: Diagnosis Discharge Diagnosis (1) Right flank pain: Status: Resolved (2) Right renal stone: Status: Resolved DS: Summary Hospital Course Hospital Course: From admission HPI: Date of Service: 09/15/24 Chief Complaint: Flank 49-year-old female with a past medical history of hypothyroidism, TIA, history of gastric bypass, GERD, insomnia, vitamin-D deficiency presented to the hospital today with a chief complaint of right flank pain/hematuria. Patient reports that for about a week she has been having right flank pain and hematuria. Presented to the ER initially and was sent home on antibiotics. Reports that she continued to have the flank pain went to the urgent care today and was given tamsulosin and sent home. But given increasing pain she decided to come to the ER for further evaluation. Reports he is having gross bloody hematuria. Denies any dysuria or urgency. Denies any fevers. Denies any chest pain or palpitations. Review of all other systems is negative except mentioned above ER course: Per ER team, patient noted to have right flank tenderness; CT abdomen pelvis showed 1.3 X 0.7 cm calculus obstructing the right ureteropelvic junction. ER team discussed with Urology who suggested admission to the hospital for pain control and will evaluate the patient on Tuesday morning for possible cystoscopy. Hospital course: Pt was admitted to the hospital for obstructing right UPJ kidney stone. Patient's pain was controlled with analgesics and she underwent cystoscopy and stent placement. Pt's hospital stay was uncomplicated and she tolerated the procedure well. Patient's urine cultures came back negative and she will be discharged home without antibiotics. Pt should take tamsulosin 0.4 mg daily at bedtime and oral analgesics as necessary, and follow up with Dr. Haywood in Urology in 2 weeks. Postop pt denies significant nausea, vomiting, abdominal pain, or flank pain. Has been able to tolerate solid food and wishes to go home. Pt is agreeable with discharge plan. For hypothyroidism continue levothyroxine For peripheral neuropathy continue gabapentin Time Attestation Discharge Coordination Time (in mins): 40 Quality: Safe Use of Opioids Does Pt have an Active Cancer Diagnosis on the Problem List?: No Quality: Stroke Does the patient have a stroke diagnosis?: No Physical Exam Exam: Exam: General: AOx3, no acute distress Resp: CTA bilaterally CVS: S1, S2, RRR GI: +BS, NT, no distention Back: No CVA tenderness Skin: Warm, dry Neuro: Cranial nerves II-XII grossly intact bilaterally. Motor grossly intact bilaterally Extremities: No edema Psych: Appropriate affect Vital Signs: Vital Signs: Last Vital Signs Temp 97.0 F 09/17/24 17:10 Pulse 58 09/17/24 17:10 Resp 16 09/17/24 17:10 BP 127/74 09/17/24 17:10 Pulse Ox 99 09/17/24 17:10 O2 Del Method Room Air 09/17/24 17:10 BMI result Body Mass Index 37.1 DS: Data Data Completed and Pending Labs on day of discharge: Preliminary micro results at discharge 09/15/24 20:11 Blood Culture - Preliminary Blood - Venous No growth after 24 hours. 09/15/24 20:11 Blood Culture - Preliminary Blood - Venous No growth after 24 hours. Discharge Plan Discharge Anticipated Discharge Date/Time: 09/17/24 19:00 Patient Disposition: Home, Self-Care Discharge Diagnosis: Obstructing right ureteropelvic junction calculus Referrals: Aamir Haywood MD [Physician, Urology] - 2 Weeks Referral Note: F/U for right ureteral stenting Corry Perez MD [Primary Care Provider, Internal Medicine] - 1 Week Discharge Medications: New tramadol 50 mg tablet 50 mg PO TID PRN (Reason: pain, severe) Qty: 10 0RF Rx Instructions: Take one tablet up to three times daily as needed for severe pain. tamsulosin 0.4 mg capsule 0.4 mg PO BEDTIME Qty: 14 0RF Rx Instructions: Take one capsule at bedtime for the next two weeks or until directed by urology Continued gabapentin 600 mg tablet 900 mg PO BEDTIME gabapentin 600 mg tablet 600 mg PO DAILY levothyroxine 150 mcg tablet 150 mcg PO DAILY@0600 sertraline 100 mg tablet 100 mg PO BEDTIME melatonin 5 mg Tablet 10 mg PO BEDTIME acetaminophen 325 mg Tablet 650 mg PO Q6H PRN (Reason: Pain) loperamide [Imodium A-D] 2 mg capsule 2 mg PO QID PRN (Reason: Diarrhea) omeprazole 40 mg capsule,delayed release(DR/EC) 40 mg PO DAILY PRN (Reason: Stomach Upset) Discharge Orders: Discharge Order (Routine); Ordered 09/17/24 Ordered By: Krystal Duarte Activity on Discharge: As tolerated Stand Alone Forms: Patient Portal Discharge page Print Language: Romanian Care Plan Goals: See below Health Concerns: Abdominal/flank pain Obstructing kidney stones UTI Plan of Treatment: You were admitted to the hospital for obstructing right kidney stone and underwent stenting by Urology. You will be discharged with short course of analgesics: Tramadol 50 mg to be taken up to 3 times daily for severe pain. You will also be discharged with a short course of tamsulosin 0.4 mg daily Follow up with Dr. Haywood in Urology in 2 weeks. Your urine culture was negative; there is no indication to treat with antibiotics at this time Assessment: See discharge summary Discharge Date/Time: 09/17/24 18:57
== END 2024-09-17 18:57 | disposition home or self-care (01) | DRG 465 ==
LOC: HO.ED 19:14 → HO.EDOVER 19:25 → HO.IMC 09-16 08:48
PROVIDERS: Nurse Practitioner Family; Urology; Admitting Provider Hospitalist; Emergency Provider Emergency Medicine; PCP Internal Medicine; Visit Provider Student in an Organized Health Care Education/Training Program
PROC: 0T768DZ Dilation of Right Ureter with Intraluminal Device, Via Natural or Artificial Opening Endoscopic (ICD-10-PCS; principal; 2024-09-17 15:40)
DX: N20.1 Calculus of ureter (principal); E03.9 Hypothyroidism, unspecified; N39.0 Urinary tract infection, site not specified; R31.9 Hematuria, unspecified; Z79.890 Hormone replacement therapy; Z98.84 Bariatric surgery status; Z79.899 Other long term (current) drug therapy
CPT/HCPCS: 36415; 74176; 80053; 81001; 81025; 83605; 83690; 85025; 87040; 87086; 99285; C1758; C1769; C2617; J0690; J0696; J1171; J1885; J2003; J2270; J2405; J2704; J3010; J7120; Q9967

== ENCOUNTER → 2024-09-15 17:23 | Outpatient (BNV) | payer BC, SELFPAY | PROVIDERS: Emergency Provider Emergency Medicine; PCP Internal Medicine; Visit Provider Radiology Diagnostic Radiology | DX: N20.1 Calculus of ureter (principal) | CPT/HCPCS: 74176 ==

== ENCOUNTER → 2024-09-15 19:17 | Outpatient (BNV) | payer BC, SELFPAY | PROVIDERS: Admitting Provider Hospitalist; Emergency Provider Emergency Medicine; PCP Internal Medicine; Visit Provider Hospitalist | DX: N20.1 Calculus of ureter (principal) | CPT/HCPCS: 99223; 99232; 99239 ==

== ENCOUNTER → 2024-09-15 19:17 | Outpatient (BNV) | payer BC, SELFPAY | PROVIDERS: Admitting Provider Hospitalist; Emergency Provider Emergency Medicine; PCP Internal Medicine; Visit Provider Urology | DX: R10.9 Unspecified abdominal pain (principal); N20.0 Calculus of kidney | CPT/HCPCS: 52332; 74420; 99254 ==

== ENCOUNTER 2024-09-20 17:58 | Emergency (ER) | payer BC, SELFPAY ==
--- NOTE | ~2024-09-20 | US_ITS ---
CLINICAL HISTORY: stent placed 3 days ago r o hydro Limited renal ultrasound Comparison: CT/SR - ABDOMEN ABD_PEL_WITHOUT (ADULT) - 09/15/24 17:[address] - CT ABDOMEN PELVIS WITH IV CONTRAST - 12/10/22 14:34 EDT Findings: The right kidney is normal in echogenicity. Mild fullness of the right renal pelvis. The ureteral stent is not well seen. There is a stone measuring 1.2 x 0.5 x 0.9 cm. On the recent prior study there was a stone measuring 1.1 cm in the right renal pelvis; this may be the same stone. 4 mm right nephrolithiasis seen on the prior CT is not well seen on ultrasound Impression: Mild fullness of the right renal pelvis. There is a 1.2 cm stone seen which is favored to be the stone which was recently seen in the right renal pelvis. The ureteral stent is not well seen. On follow up cine images may be helpful to identify the stent. This document has been electronically signed by: Desiree Mustafa MD on 09/20/2024 20:36:49
[2024-09-20 18:04] VITALS: BP 165/71; BP 172/112; PULSE 78; PULSE 87; RESP 19; TEMP 36.5; O2SAT 100; O2SAT 99; BMI 35.8
[2024-09-20 18:10] VITALS: BP 165/71; PULSE 78; RESP 19; TEMP 36.5; O2SAT 99
[2024-09-20 18:38] LABS: Hematocrit 34.5 % (37.0-47.0); Hemoglobin 11.3 g/dl (12.0-16.0); Imm Gran Abs Auto 0.04 X10*3/uL (0.00-0.03); Imm Gran Pct Auto 0.4 % (0.0-0.4); Lymphocytes Absolute Auto 3.1 X10*3/uL (1.2-4.9); MANUAL DIFF FLAG NO; Mean Corpuscular HGB Conc 32.8 g/dl (31.0-35.0); Mean Corpuscular Hemoglobin 30.7 pg (27.0-33.0); Mean Corpuscular Volume 93.8 fL (80.0-98.0); NRBC Abs Auto 0.000 X10*3/uL (0.0-0.012); NRBC Pct Auto 0.0 /100WBC (0.0-0.2); Platelet Count 326 X10*3/uL (160-400); Red Blood Count 3.68 X10*6/uL (4.20-5.50); White Blood Count 9.2 X10*3/uL (4.8-10.8)
[2024-09-20 18:54] LABS: Alanine Aminotransferase 11 U/L (0-31); Albumin Level 4.0 g/dL (3.5-5.0); Alkaline Phosphatase 107 U/L (39-117); Anion Gap 14 (12-20); Aspartate Amino Transferase 19 U/L (5-31); Blood Urea Nitrogen 13 mg/dL (9-16); Calcium 8.5 mg/dL (8.4-10.2); Carbon Dioxide 25 mmol/L (22-29); Chloride 107 mmol/L (96-108); Creatinine Clr Calc Pharmacy 85.1; Estimated Glomerular Filt Rate > 60; Potassium 4.0 mmol/L (3.3-5.1); Sodium 142 mmol/L (135-145); Total Protein 7.0 g/dL (6.5-8.0)
[2024-09-20 18:58] LABS: Appearance Urine Hazy; Glucose Urine UA Negative (Negative); PH 5.5 (5.0-9.0); Specific Gravity - Urine >= 1.030 (1.005-1.025); UMIC TRIGGER UACC YES
[2024-09-20 19:09] LABS: UACC Culture Trigger YES
--- NOTE | 2024-09-20 19:19 | PC.NURSE ---
PT medicated as per APR. Pain reassessment pending
--- NOTE | 2024-09-20 19:34 | ED_ITS ---
HPI - Abdominal Pain General Chief Complaint: Abdominal Pain Stated Complaint: abd pain Time Seen by Provider: 09/20/24 18:55 Source: patient Mode of arrival: EMS Limitations: no limitations History of Present Illness ED Provider: Marielos James PA-C HPI narrative: 49-year-old female with past medical history significant for obstructing right UPJ stone with recent stent placement on 09/17/2024, 3 days ago, presenting to the emergency department today for evaluation of hematuria and pain. Patient is concerned that she still noticed suspect the blood in her urine she thought after the stent placement that it would go away. Patient reports that nephrology had plans to potentially remove her stent on the which is less than 2 weeks from now. When she woke up this morning she found increase in pain and she is supposed to take her tramadol 3 times a day and while she did take the 1st dose of it it did not really help so she did not bother to take the 2nd dose this afternoon and still waited to see if the pain would go away and it has not. 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 Patient states that the pain is not as severe as it was earlier. She continues to have bladder pressure which is unchanged since she had the stent. She is not endorsing any dysuria urgency or frequency. She denies any fevers or chills she does not feel nauseous no abdominal pain has continuous right-sided flank pain but no different than since she had the stent placed this is the 1st time having a stent. elicited complaint: abdominal pain Related Data Home Medications ?Medication ?Instructions ?Recorded ?Confirmed loperamide 2 mg capsule (Imodium 2 mg PO QID PRN Diarr hea 03/06/20 09/16/24 A-D) omeprazole 40 mg capsule,delayed 40 mg PO DAILY PRN St omach Upset 03/11/23 09/16/24 release acetaminophen 325 mg tablet 650 mg PO Q6H PRN Pain 05/0809/16/24 gabapentin 600 mg tablet 600 mg PO DAILY 09/16/2405/08 gabapentin 600 mg tablet 900 mg PO BEDTIME 09/16/24 0 09/16/24 levothyroxine 150 mcg tablet 150 mcg PO DAILY@0600 05/0809/16/24 melatonin 5 mg tablet 10 mg PO BEDTIME 09/16/24 sertraline 100 mg tablet 100 mg PO BEDTIME 09/16/24 0 09/16/24 Previous Rx's ?Medication ?Instructions ?Recorded tamsulosin 0.4 mg capsule 0.4 mg PO BEDTIME #14 caps 0 09/17/24 acetaminophen 500 mg capsule 500 mg PO Q8H pain #30 ca ps 09/20/24 cefpodoxime 100 mg tablet 100 mg PO BID #20 tabs 09/20 phenazopyridine 100 mg tablet 100 mg PO BID pain with urination 09/20/24 (Pyridium) #20 tabs phenazopyridine 100 mg tablet 100 mg PO TID PRN pain # 9 tabs 09/20/24 (Pyridium) tramadol 50 mg tablet 50 mg PO TID PRN moderate pa in 09/20/24 (scale score 5-6) #10 tabs tramadol 50 mg tablet 50 mg PO TID PRN pain, sever e #10 09/20/24 tabs Allergies Allergy/AdvReac Type Severity Reaction Status Date / Time oxycodone (From PERCOCET) Allergy Unknown ITCHING Verified 09/20/24 18:06 Review of Systems Review of Systems Yes all other systems are reviewed and are negative [facility] Past Medical History Attestation statement: The following information was validated with the patient. Source: old records reviewed and nursing notes reviewed Medical History Ureteropelvic junction calculus Tremor Fatty liver Heart murmur History of shingles Hypothyroid Hx of mammogram Normal pelvic exam DJD (degenerative joint disease), lumbar GERD (gastroesophageal reflux disease) Overweight Insomnia IBS (irritable bowel syndrome) Anxiety Depression Epidermal cyst Surgical History Hx of esophagogastroduodenoscopy (12/24/21) H/O gastric bypass History of esophagogastroduodenoscopy (EGD) Hx of colonoscopy Gastric bypass status for obesity History of hysterectomy History of cholecystectomy Family History Family History Paternal Grandfather History of colon cancer Maternal Grandmother History of breast cancer Mental health disorder Family/Other History of breast cancer Sister Substance use disorder Mental health disorder Maternal Aunt Substance use disorder Maternal Uncle Substance use disorder Paternal Uncle Substance use disorder Maternal Uncle Substance use disorder Mother Mental health disorder Brother Mental health disorder Social History Social History Household Members: Spouse Housing: Apartment Housing Other:: , 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, 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 Are you a primary career developer to a significant other at home: No Do you presently have visiting nurse or other home services: No Alcohol intake: never Patient Tobacco Use Status: Never used Tobacco Smoked in Last 30 Days: No e-Cigarette/Vaping Use: Never Used Use of substances other than those prescribed or required for medical reasons: No Advance Directives: Yes Advance Directives Information Provided: No Advance Directives on File: No Do you have a plan to hurt others: No Plan Patient : No service: No Current occupational status: employed Cognitive needs: No Hearing needs: No Vision needs: No Physical Exam ED Exam Exam: General: Appears in no acute distress, appears well nourished body habitus is obese, comfortably sitting in stretcher, appears stated age. No septic or ill- appearing. Vitals reviewed normal, PMH/Social and Surgical hx reviewed including allergies and current medications. - reviewed for prior visits here and red as it pertains to similar chief complaint. Head: Normocephalic, no obvious trauma or skin lesions noted. Eyes: EOMI ENMT: moist oral mucosa Neck: trachea midline, no lymphadenopathy Cardiovascular: peripheral perfusion normal, Regular heart rate, regular rhythm Respiratory: no respiratory distress, lungs clear to auscultation bilaterally Abdomen: nondistended but to protuberant, mild CVA tenderness, nontender no gaurding or peritoneal signs Extremities: warm and moving without difficulty . Psych: Cooperative Neuro: Alert and oriented. Vital Signs: Vital Signs - 24 hr 09/20/24 18:04 09/20/24 18:10 09/20/24 20:09 Temperature 97.7 F 97.7 F 98.1 F Pulse Rate 78 78 86 Respiratory Rate 19 19 16 Blood Pressure 165/71 H 165/71 H 144/76 H Pulse Oximetry 99 99 98 Oxygen Delivery Method Room Air Room Air Room Air 09/20/24 20:55 Temperature 98.1 F Pulse Rate 86 Respiratory Rate 16 Blood Pressure 144/76 H Pulse Oximetry 98 Oxygen Delivery Method Room Air BMI result Body Mass Index 35.8 Medical Decision Making Medical Decision Making MDM Narrative: 49-year-old female with past medical history pertinent for recent ureteral stent placement 3 days ago on the right side due to an ostructing right UPJ stone. Upon arrival to ED she is afebrile appearing in no acute respiratory distress but given her known history and pain she was given 4 mg of IV morphine. Abdominal labs were ordered along with urine and a renal ultrasound of the right side to check for stent placement as well as potential hydronephrosis. Renal ultrasound does not show any evidence of hydronephrosis. Her urinalysis today significant for nitrites that are present along with the increase in white blood cells and hematuria. This is felt to be due to recent instrumentation an infection we will initiate antibiotics as well as have followed up by culture and [facility] nephrology with this note. I do not feel patient met admission criteria as her pain is well-controlled and she is not ill or septic. Given known stone we will order ceftriaxone injection while here and send her home. On cefpodoxime with strict return precautions. Case was discussed with my attending physician Dr. Conner who agreed with assessment and plan. Differential Diagnosis Differential Diagnoses: The differential diagnosis associated with the presentation includes displaced stent hydronephrosis UTI intractable stent pain Admission/Observation Consideration of admission/observation: Escalation of care including admission/observation considered Patient would have been admitted to the hospital had her work up had any findings where hospital admission was appropriate and her clinical presentation warranted hospital admission. Lab Data MDM Lab Attestation statement: I reviewed the patient's lab results. No leukocytosis, UA with evidence of pyuria with nitrites 09/20/24 18:32 09/20/24 18:32 Labs: Lab Results 09/20/24 09/20/24 Range/Units 18:32 18:52 WBC 9.2 (4.8-10.8) X10*3/uL RBC 3.68 L (4.20-5.50) X10*6/uL Hgb 11.3 L (12.0-16.0) g/dl Hct 34.5 L (37.0-47.0) % MCV 93.8 (80.0-98.0) fL MCH 30.7 (27.0-33.0) pg MCHC 32.8 (31.0-35.0) g/dl RDW 14.0 (11.0-16.0) % Plt Count 326 (160-400) X10*3/uL MPV 8.1 L (9.4-12.3) fL Immature Gran % (Auto) 0.4 (0.0-0.4) % Neut % (Auto) 54.1 (45-73) % Lymph % (Auto) 33.1 (20-40) % Mccone % (Auto) 8.8 (2-11) % Eos % (Auto) 2.9 (0-4) % Baso % (Auto) 0.7 (0-2) % Lymph # (Auto) 3.1 (1.2-4.9) X10*3/uL Mccone # (Auto) 0.8 (0.1-1.2) X10*3/uL Eos # (Auto) 0.3 (0.0-0.4) X10*3/uL Baso # (Auto) 0.1 (0.0-0.2) X10*3/uL Abs Immat Gran (auto) 0.04 H (0.00-0.03) X10*3/uL Absolute Neuts (auto) 5.0 (2.0-8.3) x10*3/uL Absolute Nucleated RBC 0.000 (0.0-0.012) X10*3/uL Nucleated RBC % (auto) 0.0 (0.0-0.2) /100WBC Sodium 142 (135-145) mmol/L Potassium 4.0 (3.3-5.1) mmol/L Chloride 107 (96-108) mmol/L Carbon Dioxide 25 (22-29) mmol/L Anion Gap 14 (12-20) BUN 13 (9-16) mg/dL Creatinine 0.81 (0.5-1.4) mg/dL Estim Creat Clear Calc 85.1 Estimated GFR > 60 Random Glucose 85 (60-115) mg/dL Calcium 8.5 (8.4-10.2) mg/dL Total Bilirubin 0.2 (0.0-1.0) mg/dL AST 19 (5-31) U/L ALT 11 (0-31) U/L Alkaline Phosphatase 107 (39-117) U/L Total Protein 7.0 (6.5-8.0) g/dL Albumin 4.0 (3.5-5.0) g/dL Urine Color [place] Urine Appearance Hazy Urine pH 5.5 (5.0-9.0) Ur Specific [place] >= 1.030 H (1.005-1.025) Urine Protein 300 (3+) H (Neg-Trace) mg/dL Urine Glucose (UA) Negative (Negative) mg/dL Urine Ketones Negative (Negative) mg/dL Urine Blood Large (3+) H (Negative) Urine Nitrite Positive H (Negative) Ur Leukocyte Esterase Trace H (Negative) Urine RBC >20 H (0-2) /HPF Urine WBC 21-50 H (0-5) /HPF Ur Squamous Epith Cells 3-5 (0-2) /HPF Urine Bacteria None Seen (None Seen) Hyaline Casts 0-2 (0-2) /LPF Independent Interpretation I performed an independent interpretation of an: Ultrasound Interpretation: no hydronephrosis Radiology Impression Discussion of test interpretation with radiology: I have reviewed the radiologist's reading. External Record Review External record reviewed: Outpatient record Tests considered The following testing was considered but not selected: Would have considered CT abdomen and pelvis had patient's presentation and consistent with her looking ill or toxic and no known diagnosis of kidney stone Prescription Management I considered prescription management with: Pain Medication and Antibiotic Medications Administered Discontinued Medications Generic Name Dose Route Start Last Admin Trade Name Freq PRN Reason Stop Dose Admin Ceftriaxone Sodium 1 gm 09/20/24 20:28 09/20/24 20:49 Ceftriaxone Sodium 1 Gm Vial IVPUSH 09/20/24 20:29 1 gm ONCE ONE Administration Morphine Sulfate 4 mg 09/20/24 18:55 09/20/24 19:06 Morphine Sulfate 4 Mg/Ml Cartridge IVPUSH 09/20/24 18:56 4 mg ONCE ONE Administration Protocol Ondansetron HCl 4 mg 09/20/24 18:55 09/20/24 19:06 Ondansetron Hcl 4 Mg/2 Ml Vial IVPUSH 09/20/24 18:56 4 mg ONCE ONE Administration Discharge Plan Discharge Clinical Impression: UTI (urinary tract infection), Kidney stone on right side Patient Disposition: Home, Self-Care Instructions: Urinary Tract Infection in Women (DC) Additional Instructions: You were seen in the emergency department today due to increased pain after receiving a stent which is now better controlled. You had a scan done today that shows no evidence of hydronephrosis in isn't blocking of urine anterior kidney on the right side for which you have a stent placed. I have given you ceftriaxone while here which isn't antibiotic to help treat the infection that is in her bladder at this time. I will send you home with cefpodoxime you will take this for the next 10 days unless otherwise advised by Neurology. Please touch base with them I have also CC them onto your note. If for any reason you have intractable pain develop a fever or feel worse. Return to the emergency department. Increase your fluids take your tramadol three times a day as needed for moderate to severe pain. You may take this with 650 mg of tylenol every 4-6 hours as well. Do not exceed 3000 mg in 24 hours. Prescriptions: New phenazopyridine [Pyridium] 100 mg tablet 100 mg PO TID PRN (Reason: pain) Qty: 9 0RF cefpodoxime 100 mg tablet 100 mg PO BID Qty: 20 0RF Rx Instructions: must administer with a meal/food, take this one hour before you take your morning omeprazole, start on 09/21/2024 tramadol 50 mg tablet 50 mg PO TID PRN (Reason: moderate pain (scale score 5-6)) Qty: 10 0RF No Action tramadol 50 mg tablet 50 mg PO TID PRN (Reason: pain, severe) Qty: 10 0RF Rx Instructions: Take one tablet up to three times daily as needed for severe pain. acetaminophen 500 mg capsule 500 mg PO Q8H Qty: 30 0RF phenazopyridine [Pyridium] 100 mg tablet 100 mg PO BID Qty: 20 1RF Rx Instructions: administer with a meal gabapentin 600 mg tablet 900 mg PO BEDTIME gabapentin 600 mg tablet 600 mg PO DAILY levothyroxine 150 mcg tablet 150 mcg PO DAILY@0600 sertraline 100 mg tablet 100 mg PO BEDTIME melatonin 5 mg Tablet 10 mg PO BEDTIME acetaminophen 325 mg Tablet 650 mg PO Q6H PRN (Reason: Pain) tamsulosin 0.4 mg capsule 0.4 mg PO BEDTIME Qty: 14 0RF Rx Instructions: Take one capsule at bedtime for the next two weeks or until directed by urology loperamide [Imodium A-D] 2 mg capsule 2 mg PO QID PRN (Reason: Diarrhea) omeprazole 40 mg capsule,delayed release(DR/EC) 40 mg PO DAILY PRN (Reason: Stomach Upset) Referrals: [facility] – [place] [facility] [Provider Group, Urology] Referral Note: follow up on UTI and stent Interventions: ED Discharge Assessment Last Done: 09/20/24 20:55 Print Language: Trinidadian
[2024-09-20 20:09] VITALS: BP 144/76; PULSE 86; RESP 16; TEMP 36.7; O2SAT 98
[2024-09-20 20:55] VITALS: BP 144/76; PULSE 86; RESP 16; TEMP 36.7; O2SAT 98
== END 2024-09-20 21:08 | disposition home or self-care (01) ==
PROVIDERS: Emergency Provider Emergency Medicine; PCP Internal Medicine
DX: N39.0 Urinary tract infection, site not specified (principal); N20.0 Calculus of kidney; Z87.442 Personal history of urinary calculi
CPT/HCPCS: 36415; 76775; 80053; 81001; 85025; 87086; 96374; 96375; 99284; J0696; J2270; J2405

== ENCOUNTER → 2024-09-20 19:35 | Outpatient (BNV) | payer BC, SELFPAY | PROVIDERS: Emergency Provider Emergency Medicine; PCP Internal Medicine; Visit Provider Radiology Diagnostic Radiology | DX: N20.0 Calculus of kidney (principal) | CPT/HCPCS: 76775 ==

== ENCOUNTER 2024-10-03 07:12 | Day surgery (SDC) | payer BC, SELFPAY ==
--- OUTSIDE RECORDS SUMMARY | 2024-01-30 03:30 | XMS_ITS ---
Author Organization [facility] Address [address] [place] [address] Care Team Providers Care Parachute Panel Joiner Name Role Phone Corry Perez MD Primary Care Provider Unavaila Aravind Feliz Unavailable [phone] Simeon Calvo MD Unavailable Unavailable REASON FOR VISIT screening Problems Problem Type SNOMED Code ICD Code Onset Dates Problem Status W/U Status Risk Notes Problem Diverticular disease of colon (100086135) Diverticulosis of large intestine without perforation or abscess without bleeding (K57.30) Active confirmed Encounters Encounter Location Date Provider Diagnosis [facility] Outpatient [address] [place] [phone] 01/30/2024 Aravind Schwartz Colon cancer scree abdon [...] PALMA BERGMAN ADOB: [birth year] (49 yo F)Acc No.[id number]:01/30/2024 COLON WITH MAC Patient: PALMA WALLER Provider: Meli Schwartz MD :1975 A ge:48 Y S ex:Female Date:01/30/2024 Address:[address] [place] [address] Pcp:Corry Perez MD Subjective: * Chief Complaints: [...] 04/01/2023 Generated for David vee/Torri/Dkitting on: 0 09/18/2024 09:11 AM EDT
--- OUTSIDE RECORDS SUMMARY | 2024-09-18 09:11 | XMS_ITS | Clinical Summary ---
Author Organization [facility] Address [address] [place] [address] Care Team Providers Care Arborist Representative Name Role Phone Pcp, No Primary Care [...] 11/11/2020, 03/18/2020, 02/26/2020 Influenza Vaccine 09/14/2024 Insurance [facility] [place] [id number] Care Teams Arborist Representative Relationship Specialty Start Date End Date Pcp, No PCP - General General Medicine 11/09/22
--- NOTE | 2024-10-02 10:06 | P.CONAN_ITS ---
Documented by User: Sally Phillips NP 10/02/24 10:08 HPI - Anesthesia Eval Consult details Narrative: 49yo F for Right Lithotripsy ESW,with stent removal s/p cysto, stent 09/2024 with GA-LMA 3 PMFSH Active Problems Active Problems: All Active Problems Vitamin D deficiency (Acute) TIA (transient ischemic attack) (Acute) Postmenopausal (Acute) UTI (urinary tract infection) (Acute) Sinusitis (Acute) Annual physical exam (Acute) Abdominal pain (Acute) Tremor (Acute) H/O gastric bypass (Acute) Insomnia (Acute) Hypothyroid (Acute) Hx of mammogram (Acute) Normal pelvic exam (Acute) DJD (degenerative joint disease), lumbar (Acute) GERD (gastroesophageal reflux disease) (Acute) Overweight (Acute) Hx of colonoscopy (Acute) Epidermal cyst (Acute) Past Medical History Medical History (Updated 09/21/24 @ 00:00 by Kyree Tran) Ureteropelvic junction calculus Tremor Fatty liver Heart murmur History of shingles Hypothyroid Hx of mammogram Normal pelvic exam DJD (degenerative joint disease), lumbar GERD (gastroesophageal reflux disease) Overweight Insomnia IBS (irritable bowel syndrome) Anxiety Depression Epidermal cyst Family History Family History Paternal Grandfather History of colon cancer Maternal Grandmother History of breast cancer Mental health disorder Family/Other History of breast cancer Sister Substance use disorder Mental health disorder Maternal Aunt Substance use disorder Maternal Uncle Substance use disorder Paternal Uncle Substance use disorder Maternal Uncle Substance use disorder Mother Mental health disorder Brother Mental health disorder Family history of problems with anesthesia: No Surgical History Surgical History (Updated 10/01/24 @ 14:01 by Areli Bartholomew RN) Hx of cystoscopy H/O gastric bypass History of esophagogastroduodenoscopy (EGD) Hx of colonoscopy Gastric bypass status for obesity History of hysterectomy History of cholecystectomy History of Problems with Anesthesia: No Social History Social History Household Members: Spouse Housing: Apartment Housing Other:: , 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, 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 Are you a primary direct care counselor to a significant other at home: No Do you presently have visiting nurse or other home services: No Alcohol intake: never Patient Tobacco Use Status: Never used Tobacco e-Cigarette/Vaping Use: Never Used service: No Current occupational status: employed Cognitive needs: No Hearing needs: No Vision needs: No Meds Allergies Allergy/AdvReac Type Severity Reaction Status Date / Time oxycodone (From PERCOCET) Allergy Unknown ITCHING Verified 10/03/24 07:42 Home Medications ?Medication ?Instructions ?Recorded ?Confirmed ?Last Taken ?Type loperamide 2 mg capsule (Imodium 2 mg PO QID PRN Diarr hea 03/06/20 10/03/24 Unknown History A-D) omeprazole 40 mg capsule,delayed 40 mg PO DAILY PRN St omach Upset 03/11/23 10/03/24 10/03/24 04:00 History release acetaminophen 325 mg tablet 650 mg PO Q6H PRN Pain 05/0810/03/24 Unknown History gabapentin 600 mg tablet 600 mg PO DAILY 09/16/2409/16/24 History gabapentin 600 mg tablet 900 mg PO BEDTIME 09/16/24 0 10/03/24 09/15/24 History levothyroxine 150 mcg tablet 150 mcg PO DAILY@0600 05/0810/03/24 10/03/24 06:30 History melatonin 5 mg tablet 10 mg PO BEDTIME 09/16/24 Unknown History sertraline 100 mg tablet 100 mg PO BEDTIME 09/16/24 0 10/03/24 09/15/24 History Exam Height,Weight and Vital Signs: Height 5 ft 2 in Pertinent Lab Results Pertinent Lab Results: Laboratory Tests 09/20/24 18:32 WBC 9.2 Hgb 11.3 L Hct 34.5 L Plt Count 326 Sodium 142 Potassium 4.0 Chloride 107 Carbon Dioxide 25 BUN 13 Creatinine 0.81 Assessment and Plan Assessment Anesthesia Assessment: Chart Reviewed Final Anesthetic Review Family History of Problems with Anesthesia: No History of Problems with Anesthesia: No Documented by User: Manjeet Schaffer MD 10/03/24 08:40 [facility] Past Medical History Medical History (Updated 09/21/24 @ 00:00 by Kyree Tran) Ureteropelvic junction calculus Tremor Fatty liver Heart murmur History of shingles Hypothyroid Hx of mammogram Normal pelvic exam DJD (degenerative joint disease), lumbar GERD (gastroesophageal reflux disease) Overweight Insomnia IBS (irritable bowel syndrome) Anxiety Depression Epidermal cyst Patient : No Family History Family History Paternal Grandfather History of colon cancer Maternal Grandmother History of breast cancer Mental health disorder Family/Other History of breast cancer Sister Substance use disorder Mental health disorder Maternal Aunt Substance use disorder Maternal Uncle Substance use disorder Paternal Uncle Substance use disorder Maternal Uncle Substance use disorder Mother Mental health disorder Brother Mental health disorder Surgical History Surgical History (Updated 10/01/24 @ 14:01 by Areli Bartholomew RN) Hx of cystoscopy H/O gastric bypass History of esophagogastroduodenoscopy (EGD) Hx of colonoscopy Gastric bypass status for obesity History of hysterectomy History of cholecystectomy Social History Social History Household Members: Spouse Housing: Apartment Housing Other:: , 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, 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 Are you a primary direct care counselor to a significant other at home: No Do you presently have visiting nurse or other home services: No Alcohol intake: never Patient Tobacco Use Status: Never used Tobacco e-Cigarette/Vaping Use: Never Used service: No Current occupational status: employed Cognitive needs: No Hearing needs: No Vision needs: No Meds Allergies Allergy/AdvReac Type Severity Reaction Status Date / Time oxycodone (From PERCOCET) Allergy Unknown ITCHING Verified 10/03/24 07:42 Home Medications ?Medication ?Instructions ?Recorded ?Confirmed ?Last Taken ?Type loperamide 2 mg capsule (Imodium 2 mg PO QID PRN Diarr hea 03/06/20 10/03/24 Unknown History A-D) omeprazole 40 mg capsule,delayed 40 mg PO DAILY PRN St omach Upset 03/11/23 10/03/24 10/03/24 04:00 History release acetaminophen 325 mg tablet 650 mg PO Q6H PRN Pain 05/0810/03/24 Unknown History gabapentin 600 mg tablet 600 mg PO DAILY 09/16/2409/16/24 History gabapentin 600 mg tablet 900 mg PO BEDTIME 09/16/24 0 10/03/24 09/15/24 History levothyroxine 150 mcg tablet 150 mcg PO DAILY@0600 05/0810/03/24 10/03/24 06:30 History melatonin 5 mg tablet 10 mg PO BEDTIME 09/16/24 Unknown History sertraline 100 mg tablet 100 mg PO BEDTIME 09/16/24 0 10/03/24 09/15/24 History Exam Airway Mallampati Class: I TM Dist: <=3cm Neck ROM: Full Loose/Missing/Broken Teeth: No Heart: ok Lungs: ok Assessment and Plan Assessment Anesthesia Assessment: Anesthesia Plan Discussed Final Anesthetic Review NPO: Yes ASA Class: III Final Preanesthetic Review: No Changes in Pt Med Stat, Meds/Allgs Chart Reviewed, Consent Obtained/Reviewed and Anes Risks/Benef Reviewed Patient Risk: Intermediate Procedure Risk: Low Anesthetic Plan Anesthetic Plan: Agree w/ Assess. and Plan and TIVA Disposition: Standard PACU
[2024-10-03] VITALS (7 sets, daily range): BP systolic 143–170; BP diastolic 74–90; PULSE 78–96; RESP 12–16; TEMP 36.6–36.9; O2SAT 88–97; BMI 36.2
--- NOTE | ~2024-10-03 | XR_ITS ---
EXAMINATION: XR ABDOMEN KUB CLINICAL INDICATION: right renal stone COMPARISON: Correlated to CT abdomen and pelvis dated September 15, 2024 TECHNIQUE: AP view of the abdomen. FINDINGS: Right-sided ureteral stent placed with the pigtail formed in the right kidney shadow and the region of the bladder. There is a 9.6 mm calcification overlapping the right kidney shadow. Multiple sutures in the left hemiabdomen likely related to Patricia-en-Y procedure identified on the CT. No intestinal obstruction pattern Vascular clips right upper quadrant abdomen related to cholecystectomy. S-shaped curvature of the thoracolumbar spine. Liver shadow projects below the rib cage. XR/XR KUB IMPRESSION: 9.6 mm calculus, right kidney. Status post right-sided ureteral stent placement. Electronically signed by: Lowell Laughlin MD 10/03/2024 08:21 AM EDT
--- NOTE | 2024-10-03 08:03 | MHC.SHP ---
Pre-Procedural Eval Section A - 24 Hr Update-Section A only Date of Service: 10/03/24 The patient is an INPATIENT: No Changes since office visit: No Cold of Flu in the past 2 weeks, No New Medical Problems, No Changes in Medication and No Patient answered all questions The patient has been examined within 24 hours of the surgical procedure. The History & Physical has been completed within 30 days and I have reviewed it.: Yes Section B - Complete if H&P > 30 days Chief Complaint: Calculus of kidney Allergies: Allergies Allergy/AdvReac Type Severity Reaction Status Date / Time oxycodone (From PERCOCET) Allergy Unknown ITCHING Verified 10/03/24 07:42 Plan Diagnosis/Plan: Unchanged (right ESWL and stent removal) I have reviewed the history and physical and performed a pertinent physical examination on my patient. No changes have occurred unless specified. Time Spent With Patient Time: Total time managing care of this patient today ____ minutes.
[2024-10-03] MEDS: Lactated Ringers 1,000 ML 999 ML IV (08:07)
--- NOTE | 2024-10-03 08:46 | W.PM.OPN ---
Operative Note Operative Note Date of Service: 10/03/24 Narrative: PreOperative Diagnosis: right Renal stones Post Operative Diagnosis: right Renal stones Procedure: right ESWL with stent removal Surgeon: Dr Aamir Haywood Anesthesia: mac/sedation Indications for procedure: The patient understands ESWL may be a staged procedure and subsequent intervention may be required based on imaging after ESWL. Quoted stone clearance rates for a solitary procedure are in the 70-80% range based primarily on stone location. They also understand there is a risk of bleeding to the kidney, infection, damage to adjacent organs, and stone migration following the procedure. - Imaging 13mm right renal pelvic stone Procedure optimization has been performed with IV acetaminophen given in the holding area and 1 L of lactated Ringer's to be given in order to optimize the fluid-stone interface. 20 mg of IV Lasix will be given in the last 5 minutes of the procedure to optimize stone clearance. Procedure: After informed consent was verified the patient was brought to the operating room and placed in a supine position. Anesthesia was performed per protocol. Safety pause time-out was performed. Imaging was displayed in the room and laterality confirmed. ESWL was performed. The 1st 500 shocks were performed at 60 hertz. These were performed with increasing power. Once maximum power was reached the rate was increased to 180 hertz. A total of 2500 shocks were given. Targeted imaging with ultrasound/fluoroscopy showed stone smudging suggestive of disintegration. At completion of the procedure cystoscopy performed. Stent seen, grasp and removed from right ureteric orifice. The patient tolerated the procedure well and was transferred to the recovery area upon completion. Post procedure imaging will be organized. There was no evidence for flank discoloration.
== END 2024-10-03 10:13 | disposition home or self-care (01) ==
PROVIDERS: PCP Internal Medicine; Visit Provider Urology
PROC: (CPT 50590; principal; 2024-10-03 09:20)
DX: N20.0 Calculus of kidney (principal); R31.9 Hematuria, unspecified; Z96.0 Presence of urogenital implants; R10.9 Unspecified abdominal pain; K21.9 Gastro-esophageal reflux disease without esophagitis; K76.0 Fatty (change of) liver, not elsewhere classified; E55.9 Vitamin D deficiency, unspecified; R25.1 Tremor, unspecified; R01.1 Cardiac murmur, unspecified; E03.9 Hypothyroidism, unspecified; G47.00 Insomnia, unspecified; Z86.73 Personal history of transient ischemic attack (TIA), and cerebral infarction without residual deficits; Z79.899 Other long term (current) drug therapy; Z88.5 Allergy status to narcotic agent; Z98.84 Bariatric surgery status
CPT/HCPCS: 50590; 52310; 74018; J0131; J2003; J2250; J2704; J3010

== ENCOUNTER → 2024-10-03 07:12 | Outpatient (BNV) | payer BC, SELFPAY | PROVIDERS: PCP Internal Medicine; Visit Provider Urology | DX: N20.0 Calculus of kidney (principal); Z96.0 Presence of urogenital implants | CPT/HCPCS: 50590; 52310 ==

== ENCOUNTER → 2024-10-03 07:20 | Outpatient (BNV) | payer BC, SELFPAY | PROVIDERS: PCP Internal Medicine; Visit Provider Radiology Diagnostic Radiology | DX: N20.0 Calculus of kidney (principal) | CPT/HCPCS: 74018 ==

== ENCOUNTER → 2024-11-22 08:49 | Outpatient (REF) | payer BC, SELFPAY ==
--- NOTE | ~2024-11-22 | US_ITS ---
CLINICAL HISTORY: G45.9 - Transient cerebral ischemic attack, unspecified US Bilateral Carotid Duplex Comparison: None provided Findings: No significant plaque within the common carotid arteries. No significant plaque within the carotid bulbs. Color doppler and spectral tracings normal. Peak systolic velocities: Right CCA: 112 cm/s. Right ICA: 109 cm/s. ICA/CCA ratio: 0.7. Right ECA: Unremarkable. Right vertebral artery flow antegrade. Left CCA: 88 cm/s. Left ICA: 92 cm/s. ICA/CCA ratio: 0.7. Left ECA: Unremarkable. Left vertebral artery flow antegrade. IMPRESSION: Normal carotid velocities, no significant stenosis (0-49% stenosis). This document has been electronically signed by: Tobin Barahona MD on 11/23/2024 08:25:14
--- NOTE | 2024-11-22 08:51 | CA_ITS ---
Transthoracic Echocardiogram Patient (Last, First, Middle): Jessica James, Gender: F Date of : 1975 Age: 49 Procedure Date: 11/22/2024 Procedure Type: Transthoracic Echocardiogram Location: OP Height: 157. cm Weight: 95.26 kg BSA: 1.95 m2 Heart Rate: 74 bpm BP: 145 / 85 mmHg Glove Parts Cutter: CHIQUITA Jackson MD: Corry Perez MD Locomotive Engineer Diesel: Dominick Domingo MD Symptoms: G45.9 - Transient cerebral ischemic attack, unspecified Study Quality: Adequate ECG Rhythm: Sinus Conclusions: - Essentially normal study with no clear evidence of intracardiac shunting with mildly dilated left atrium Findings Left Ventricle Normal left ventricular size, thickness, and systolic function. The visually estimated ejection fraction is between 60-65%. Spectral Doppler is indicative of a normal filling pattern. Right Ventricle Normal right ventricular cavity size and systolic function. Atria The left atrium is mildly dilated. There is no evidence of interatrial shunt by agitated saline. The right atrium is normal in size. Aortic Valve Normal aortic valve structure and function. There is no aortic valve stenosis. There is no aortic valve regurgitation. Mitral Valve Normal mitral valve structure and function. There is trace mitral valve regurgitation. There is no mitral valve stenosis. Pulmonic Valve The pulmonic valve is likely normal. Tricuspid Valve Normal tricuspid valve structure. There is trace tricuspid valve regurgitation. Great Vessels All visible segments of the aorta are normal in size. The pulmonary artery was not well visualized. Venous The inferior vena cava is normal in size and collapses greater than 50% with inspiration. Pericardium/Pleural There is no evidence of pericardial effusion. Prior Study Comparison No prior study available for comparison. Measurements 2D Linear Measurements IVSd: 1.12 0.6-0.9/0.6-1.0 cm LVIDd: 4.48 3.9-5.3/4.2-5.9 cm LVIDd Index: 2.30 2.4-3.2/2.2-3.1 cm/m2 LVIDs: 2.71 2.0-3.6 cm LVPWd: 1.00 0.7-1.1 cm LA Diam: 4.40 2.7-3.8/3.0-4.0 cm LAIDs Index: 2.26 1.5-2.3 cm/m2 LV Mass: 205.21 67-162/88-224 g LV Mass Index: 105.24 43-95/49-115 g/m2 LVOT Diam: 2.00 3.0+(-)1.3 cm 2D Systolic Function EF 4C: 62.40 >55% EF 2C: 62.20 >55% EF BiP: 62.60 >55% Mitral Valve MV Pk E: 0.90 MV PK A: 1.17 MV Decel Time: 251.00 E/A: 0.80 E'Lateral: 7.94 E'Medial: 6.31 E/E' Med: 14.20 E/E' Lat: 11.30 PHT: 74.00 MVA PHT: 2.97 Decel Bacon: 3.57 Aortic Valve AoV Pk Ariel: 1.56 AoV Mn Ariel: 1.15 AoV VTI: 0.35 AoV Pk Grad: 10.00 Aov Mn Grad: 6.00 GERARDO Cont.VTI: 2.39 LVOT LVOT Pk Ariel: 1.12 LVOT Mn Ariel: 0.85 LVOT VTI: 0.27 LVOT Pk Grad: 5.00 LVOT Mn Grad: 3.00 LVOT Diam: 2.00 LVOT Area: 3.14 Diastolic Function MV Pk E: 0.90 MV Pk A: 1.17 E/A: 0.80 E'Medial: 6.31 E/E' Med: 14.20 E' Laterial: 7.94 E/E' Lat: 11.30 Right Ventricle TAPSE (mm): 25.80 TVS' Ariel: 18.60 Tricuspid Valve RA Press: 3.00 Great Vessels Aorta Sinus of Valsalva: 2.90 2.0-3.5 cm Ao Asc: 2.90 2.1-3.4 cm Ao Arch: 2.70 Pulmonary Veins Pulm Vein S/D 1.70 Pulmonary Valve PV Pk Ariel: 1.25 Peak PV Grad: 6.00 Updated in Other Vendor System with Status of Final Dominick Domingo MD electronically signed on 11/22/2024 11:48:13 AM with status of Final
== END ==
LOC: HO.CARD 08:49
PROVIDERS: PCP Internal Medicine; Visit Provider Internal Medicine
DX: G45.9 Transient cerebral ischemic attack, unspecified (principal)
CPT/HCPCS: 93306; 93880

== ENCOUNTER → 2024-11-22 08:51 | Outpatient (BNV) | payer BC, SELFPAY | PROVIDERS: PCP Internal Medicine; Visit Provider Internal Medicine Cardiovascular Disease | DX: G45.9 Transient cerebral ischemic attack, unspecified (principal) | CPT/HCPCS: 93306 ==

== ENCOUNTER → 2024-11-22 09:53 | Outpatient (BNV) | payer BC, SELFPAY | PROVIDERS: PCP Internal Medicine; Visit Provider Radiology Vascular & Interventional Radiology | DX: G45.9 Transient cerebral ischemic attack, unspecified (principal) | CPT/HCPCS: 93880 ==

== ENCOUNTER 2024-11-23 13:42 | Outpatient (REF) | payer BC, SELFPAY ==
--- NOTE | ~2024-11-23 | US_ITS ---
EXAMINATION: US KIDNEY BILATERAL HISTORY: N20.0 - Calculus of kidney TECHNIQUE: Real-time grayscale ultrasound imaging of the kidneys was performed and images were reviewed. COMPARISON: Correlation is made with the prior ultrasound of the right kidney dated 09/20/2024. FINDINGS: Right kidney: The right kidney measures 9.8 x 3.8 x 5.6 cm. Renal parenchymal echotexture and thickness are normal. There are no masses. There is a 1.3 x 0.4 x 0.5 cm nonobstructing calculus at the lower pole. There is no hydronephrosis. Left Kidney: The left kidney measures 10.2 x 5.5 x 4.6 cm. Renal parenchymal echotexture and thickness are normal. There are no masses. There is no hydronephrosis or renal calculi. US/US renal BI IMPRESSION: 1.3 x 0.4 x 0.5 cm nonobstructing calculus at the lower pole of the right kidney. Otherwise unremarkable renal ultrasound. Electronically signed by: Aravind Musa MD 11/23/2024 02:10 PM EDT
== END 2024-11-23 13:43 | disposition home or self-care (01) ==
LOC: HO.HMGCX 13:42
PROVIDERS: PCP Internal Medicine; Visit Provider Urology
DX: N20.0 Calculus of kidney (principal)
CPT/HCPCS: 76775

== ENCOUNTER → 2024-11-23 13:47 | Outpatient (BNV) | payer BC, SELFPAY | PROVIDERS: PCP Internal Medicine; Visit Provider Radiology Diagnostic Radiology | DX: N20.0 Calculus of kidney (principal) | CPT/HCPCS: 76775 ==

== ENCOUNTER 2024-11-30 09:06 | Outpatient (AMB) | payer BC, SELFPAY ==
--- OUTSIDE RECORDS SUMMARY | 2023-10-12 05:30 | XMS_ITS ---
Author Organization [facility] Address [address] [place] [address] Care Team Providers Care Equipment Operation Instructor Name Role Phone Corry Perez MD Primary Care Provider Unavaila Aravind Feliz [phone] Simeon Calvo MD Unavailable Unavailable REASON FOR VISIT screening Encounters Encounter Location Date Provider Diagnosis [facility] [place] [address] [place] [phone] 10/12/2023 Aravind Schwartz Plan Of Treatment No Information Progress Notes * PALMA BERGMAN ADOB: 4 (49 yo F)Acc No.[id number]:10/12/2023 COLON WITH MAC Patient: PALMA WALLER Provider: Meli Schwartz MD :1975 A ge:48 Y S ex:Female Date:10/12/2023 Address:[address] [place] [address] [id number] Pcp:Corry Perez MD Subjective: * Chief Complaints: * 1 . Screening. * Medical History: Objective: * Vitals: Assessment: Plan: * Treatment: * * The named appointment provid er may or may not be the originator of this progress note, and it is not deemed complete until electronically signed by the appointment provider. Sign off status: Pending * Provider: Meli Schwartz MD Date: 0 10/12/2023 Generated for Printi ng/Faxing/eTransmitting on: 1 09:51 AM EDT
--- OUTSIDE RECORDS SUMMARY | 2024-01-30 03:30 | XMS_ITS ---
Author Organization [facility] Address [address] [place] [address] Care Team Providers Care Roving Tester Laboratory Name Role Phone Corry Perez MD Primary Care Provider Unavaila Aravind Feliz Unavailable [phone] Simeon Calvo MD Unavailable Unavailable REASON FOR VISIT screening Problems Problem Type SNOMED Code ICD Code Onset Dates Problem Status W/U Status Risk Notes Problem Diverticular disease of colon (197578118) Diverticulosis of large intestine without perforation or abscess without bleeding (K57.30) Active confirmed Encounters Encounter Location Date Provider Diagnosis [facility] [place] [address] [place] [phone] 01/30/2024 Aravind Schwartz Colon cancer scree abdon [...] PALMA BERGMAN ADOB: 4 (49 yo F)Acc No.[id number]:01/30/2024 COLON WITH MAC Patient: PALMA WALLER Provider: Meli Schwartz MD :1975 A ge:48 Y S ex:Female Date:01/30/2024 Address:[address] [address] Pcp:Corry Perez MD Subjective: * Chief Complaints: [...] MD Date: 1 04/01/2023 Generated for David vee/Torri/Dkitting on: 09:51 AM EDT
--- NOTE | 2024-11-30 09:26 | MHC.PC.OV ---
Vital Signs 11/30/24 09:27 Height 5 ft 2 in Weight 206 lb BMI 37.7 BP 138/84 Blood Pressure Location Lt brachial Position Sitting Respiration 19 Pulse 69 Pulse Source Pulse Oximeter Temp 98.6 F Temp Source Oral Pulse Oximetry (%) 97 Oxygen Delivery Method Room Air Intake Visit Reasons: review images Intake Note: Pt is here today for a follow up visit. Allergies oxycodone (From PERCOCET) Allergy (Unknown, Verified 11/30/24 09:27) ITCHING Medication List - Last Reconciled 11/30/24 by Corry Perez MD acetaminophen 650 mg PO Q6H PRN gabapentin 900 mg PO BEDTIME gabapentin 600 mg PO DAILY levothyroxine 150 mcg PO DAILY@0600 lisinopril 10 mg PO DAILY loperamide (Imodium A-D) 2 mg PO QID PRN melatonin 10 mg PO BEDTIME omeprazole 40 mg PO DAILY PRN pyridoxine (vitamin B6) (Vitamin B-6) 100 mg PO DAILY sertraline 100 mg PO BEDTIME Tobacco use date assessed: 11/30/24 Dental Screening Dental Screen Date: 04/26/24 HPI review images HPI Details Pt presents for f/u. Pt c/o increased stress at work. Patient is established with urology for right kidney stone status post lithotripsy on September 17 and ureteral stent placement. [facility] Medical History (Updated 11/30/24 @ 15:39 by Corry Perez MD) Ureteropelvic junction calculus Tremor Fatty liver Heart murmur History of shingles Hypothyroid Hx of mammogram Normal pelvic exam DJD (degenerative joint disease), lumbar GERD (gastroesophageal reflux disease) Overweight Insomnia IBS (irritable bowel syndrome) Anxiety Depression Epidermal cyst Surgical History Hx of cystoscopy H/O gastric bypass History of esophagogastroduodenoscopy (EGD) Hx of colonoscopy Gastric bypass status for obesity History of hysterectomy History of cholecystectomy Family History Paternal Grandfather History of colon cancer Maternal Grandmother History of breast cancer Mental health disorder Family/Other History of breast cancer Sister Substance use disorder Mental health disorder Maternal Aunt Substance use disorder Maternal Uncle Substance use disorder Paternal Uncle Substance use disorder Maternal Uncle Substance use disorder Mother Mental health disorder Brother Mental health disorder Social History Household Members: Spouse Housing: Apartment Housing Other:: , 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 1. Little interest or pleasure in doing things: several days 2. Feeling down, depressed, or hopeless: several days 3. Trouble falling or staying asleep, or sleeping too much: nearly every day 4. Feeling tired or having little energy: several days 5. Poor appetite or overeating: not at all 6. Feeling bad about yourself - or that you are a failure or have let yourself or your family down: not at all 7. Trouble concentrating on things, such as reading the newspaper or watching television: not at all 8. Moving or speaking so slowly that other people could have noticed. Or the opposite - being so fidgety or restless that you have been moving around a lot more than usual: not at all 9. Thoughts that you would be better off or of hurting yourself in some way: not at all Total score: 6 Depression Screening Interpretation: Negative Depression Screening Done: Yes Source: Developed by Drs. Aravind Ding, Yokasta Valdez, Denzel Rivera and colleagues, with an educational og from [employer]. Thrive Questionnaire Date Thrive assessed: 04/26/24 I am a: Patient What is your living situation today?: I have a steady place to live Within the past 12 months, did the food you bought not last and you didn't have the money to get more?: Never true Within the past 12 months, did you worry whether your food would run out before you got money to buy more?: Never true Do you have trouble paying for medicines?: No Do you have trouble getting transportation to medical appointments?: No Do you have trouble paying your heating and electricity bill?: No Do you have trouble taking care of your child, family member or friend?: No Do you have trouble with day-to-day activities such as bathing, preparing meals, shopping, managing finances, etc.?: No Are you currently unemployed and looking for a job?: No Are you interested in more education?: No Please select the resources that you would like help with: None Currently or been in a relationship where the following occur: No concerns reported THRIVE Score: 0 AUDIT C Alcohol Use Questionnaire (AUDIT-C) 1. How often do you have a drink containing alcohol?: Never 3. How often do you have six or more drinks on one occasion?: Never Total Score: 0 DANIELLE-7 AMB Questionnaire DANIELLE-7 Date DANIELLE - 7 assessed: 04/26/24 Feeling nervous, anxious, or on edge: 0 = Not at all Not being able to stop or control worryin = Not at all Worrying too much about different things: 0 = Not at all Trouble relaxin = Not at all Being so restless that it is hard to sit still: 0 = Not at all Becoming easily annoyed or irritable: 0 = Not at all Feeling afraid as if something awful might happen: 0 = Not at all Total DANIELLE-7 score (0-4 normal; 5-9 mild; 10-14 moderate; 15-21 severe): 0 Source: Developed by Drs. Aravind Ding, Yokasta Valdez, Denzel Rivera and colleagues, with an educational og from [employer]. Review of Systems Const All systems reviewed & are unremarkable except as noted in HPI and below Eyes Reports no additional complaints ENT Reports no additional complaints Card Reports no additional complaints Resp Reports no additional complaints GI Reports no additional complaints Reports no additional complaints Physical exam (Primary Care) Vital Signs: Last Vital Signs Temp 98.6 F 11/30/24 09:27 Pulse 69 11/30/24 09:27 Resp 19 11/30/24 09:27 BP 138/84 11/30/24 09:27 Pulse Ox 97 11/30/24 09:27 Oxygen Delivery Method Room Air 11/30/24 09:27 BMI result Body Mass Index 37.7 Tobacco/Smoking Status: Tobacco use Status Tobacco use date assessed 11/30/24 11/30/24 09:33 Patient Tobacco Use Status Never used Tobacco 11/30/24 09:27 e-Cigarette/Vaping Use Never Used 11/30/24 09:27 PHQ-9: PHQ-9 Score PHQ-9: Total score 6 11/30/24 09:53 Depression Screening Interpretation: Negative Thrive Assessment: Date of Thrive Assessment Date Thrive assessed 04/26/24 11/30/24 09:27 Currently or been in a relationship where the following occur: No concerns reported Const General: no acute distress HENMT Head: Yes normal to inspection Eyes General: appearance normal, both eyes and all related structures Resp Effort & Inspection: normal respiratory effort Auscultation: clear to auscultation bilaterally Cardio Rhythm: regular rhythm Heart sounds: S1 normal heart sound present and S2 normal heart sound present GI Inspection: Yes normal to inspection Palpation (GI): Soft to palpation Percussion: Yes normal to percussion Auscultation: normal bowel sounds Coding Level of Care Code Est Pt Level 4 (82049) Diagnoses UTI (urinary tract infection) N39.0 Overweight E66.3 Hypothyroid E03.9 Ureteropelvic junction calculus N20.1 HTN (hypertension) I10 Assessment & Plan Assessment & Plan (1) UTI (urinary tract infection): Code(s): N39.0 - Urinary tract infection, site not specified Category: Medical Plan: Check UA and urine culture for symptoms of intermittent dysuria (2) Overweight: Code(s): E66.3 - Overweight Category: Medical Plan: Decrease caloric intake increasing physical activity discussed with the patient (3) Hypothyroid: Comment: f/u Dr Cabezas Code(s): E03.9 - Hypothyroidism, unspecified Category: Medical Plan: Continue levothyroxine (4) Ureteropelvic junction calculus: Comment: CT 09/15/2024 R lower renal 1.3 cm x 0.7 stone, s/p lithotripsy and ureteral stent placement 09/17/2024, Renal us 11/2024 1.2 cm right lower pole stone present Code(s): N20.1 - Calculus of ureter Category: Medical Plan: Follow-up with urology (5) HTN (hypertension): Code(s): I10 - Essential (primary) hypertension Category: Medical Plan: Low-sodium diet increase physical activity discussed with the patient lisinopril 10 mg daily will be started. CMP will be checked in 2 weeks and patient will follow-up in 1 month Orders: Orders Urine Culture Today N39.0 - Urinary tract infection, site not specified Complete Blood Count Auto Diff 2 Weeks E03.9 - Hypothyroidism, unspecified, E66.3 - Overweight, I10 - Essential (primary) hypertension Lipid Panel 2 Weeks E03.9 - Hypothyroidism, unspecified, E66.3 - Overweight, I10 - Essential (primary) hypertension UA w Microscopic Today N39.0 - Urinary tract infection, site not specified Comprehensive Met. Panel 2 Weeks E03.9 - Hypothyroidism, unspecified, E66.3 - Overweight, I10 - Essential (primary) hypertension TSH reflex Free T4 2 Weeks E03.9 - Hypothyroidism, unspecified, E66.3 - Overweight, I10 - Essential (primary) hypertension Vitamin D 25-OH Total 2 Weeks E03.9 - Hypothyroidism, unspecified, E66.3 - Overweight, I10 - Essential (primary) hypertension Vitamin B12 and Folate 2 Weeks E03.9 - Hypothyroidism, unspecified, E66.3 - Overweight, I10 - Essential (primary) hypertension Medications: New lisinopril 10 mg PO DAILY 90 tabs 0RF pyridoxine (vitamin B6) (Vitamin B-6) 100 mg PO DAILY 90 tabs 1RF
[2024-11-30 09:27] VITALS: BP 138/84; PULSE 69; RESP 19; TEMP 37; O2SAT 97; BMI 37.7
--- OUTSIDE RECORDS SUMMARY | 2024-11-30 09:51 | XMS_ITS | Patient Health Record ---
Author Organization [facility] Address [address] [place] [id number] Care Team Providers Care Tax Examining Technician Name Role Phone Corry Perez MD Primary Care Provider Unavaila Aravind Feliz Unavailable [phone] Simeon Calvo MD Unavailable Unavailable Allergies Allergen (clinical drug ingredient) Drug/Non Drug Allergy documented on EMR Reaction Allergy Type Onset Date Status acetaminophen / oxycodone Percocet Unknown Drug Allergy Active Reason For Referral No Information Medications Medication SIG (Take, Route, Frequency, Duration) Notes Start Date End Date Status Omeprazole 40 MG 1 Orally Once a day; Duration: 30 days as needed Active Zoloft 100 mg 1 tab Oral qd Ac tive Imodium A-D 2 MG 1 tablet as needed Orally Four times a day/prn Active Synthroid 137 MCG 1 tablet on an empty stomach in the morning Orally Once a day Active Gabapentin 800 MG 1 tablet Orally Once a day; Duration: 30 day(s) 900 mg a day Active Pepcid 40 MG 1 Orally at 1 PM and 6PM; Duration: 30 day(s) 10/03/2019 Not-Taking Immunizations Vaccine Route [...] Status Risk Notes Problem Colon cancer screening (696747865) Colon cancer screening (Z12.11) Active confirmed Problem Diverticular disease of colon (066574956) Diverticulosis of large intestine without perforation or abscess without bleeding (K57.30) Active confirmed Problem Irritable bowel syndrome with diarrhea (587104859) Irritable bowel syndrome with diarrhea (K58.0) Active confirmed Problem Heartburn (54788639) Heartburn (R12) Active confirmed Problem Gastroesophageal reflux disease without esophagitis (143614979) Gastroesophageal reflux disease without esophagitis (K21.9) Active confirmed Problem Elevated liver enzymes level (505342730) Elevated liver enzymes (R74.8) Active confirmed Problem Fatty liver (478542226) Fatty liver (K76.0) Active confirmed Problem Gastroesophageal reflux disease (525203361) Gastroesophageal reflux disease, esophagitis presence not specified (K21.9) Active confirmed Problem Gastritis (5402628) Gastritis (K29.70) Active c onfirmed Encounters Encounter Location Date Provider Diagnosis [facility] [place] [facility] [address] [place] [phone] 01/30/2024 Aravind Schwartz Colon cancer screeni ng Z12.11 ; Family history of colon cancer Z80.0 ; FH: colon polyps Z83.719 ; Diverticulosis of large intestine without perforation or abscess without bleeding K57.30 and Other hemorrhoids K64.8 [facility] [address] [place] [phone] 12/29/2023 Aravind Schwartz Assessments Encounter Date Diagnosis [...] Insured Coverage Start Date Coverage End Date [facility] [address] [place], [place] [id number] PALMA [employer]ERGMAN Self - patient is [...] Shah's, no celiac disease Migraines Insomnia Denies NE,DM,CVA,Lung disease,renal dise ase Depression IBS with Diarrhea--could [...] x2 Gastric sleeve surgery- 8--Dr. Calvo at [facility]--started at 256# and is now 190# as of 01/25/18, 176# in 03/2019; but 207# in 09/2021 OV Gastric bypass 03/2022
--- OUTSIDE RECORDS SUMMARY | 2024-11-30 09:52 | XMS_ITS | Clinical Summary ---
Author Organization [facility] Address [address] [place] [address] Care Team Providers Care Home Care Physical Therapist Name Role Phone Pcp, No Primary Care [...] Vaccine (1 of 2) 06/26/2023 Influenza Vaccine 09/14/2024 COVID-19 Vaccine (2024- season) 2024 11/11/2020, 03/18/2020, 02/26/2020 Insurance [facility] [place] [id number] Care Teams Home Care Physical Therapist Relationship Specialty Start Date End Date Pcp, No PCP - General General Medicine 11/09/22
== END 2024-11-30 10:09 | disposition home or self-care (01) ==
LOC: HO.HMCC 09:07
PROVIDERS: PCP Internal Medicine; Visit Provider Internal Medicine
DX: N39.0 Urinary tract infection, site not specified (principal); E66.3 Overweight; E03.9 Hypothyroidism, unspecified; N20.1 Calculus of ureter; I10 Essential (primary) hypertension

== ENCOUNTER 2024-12-07 07:41 | Outpatient (REF) | payer BC, SELFPAY ==
--- OUTSIDE RECORDS SUMMARY | 2024-12-07 07:44 | XMS_ITS | Clinical Summary ---
Author Organization [facility] Address [address] [place] [address] Care Team Providers Care Cathode Washer Name Role Phone Pcp, No Primary Care [...] Vaccine (2024- season) 2024 11/11/2020, 03/18/2020, 02/26/2020 RSV Vaccine 50 years and old er and Patients (1 - 1-dose 75+ series) 2048 Insurance [facility] [place] [id number] Care Teams Cathode Washer Relationship Specialty Start Date End Date Pcp, No PCP - General General Medicine 11/09/22
[2024-12-07 10:19] LABS: Appearance Urine Clear; Glucose Urine UA 500 mg/dL (Negative); PH 6.0 (5.0-9.0); Specific Gravity - Urine 1.025 (1.005-1.025)
== END 2024-12-07 07:42 | disposition home or self-care (01) ==
LOC: HO.HMGCLDS 07:41
PROVIDERS: PCP Internal Medicine; Visit Provider Internal Medicine
DX: N39.0 Urinary tract infection, site not specified (principal)
CPT/HCPCS: 81001

== ENCOUNTER 2024-12-11 06:02 | Outpatient (REF) | payer BC, SELFPAY ==
--- OUTSIDE RECORDS SUMMARY | 2023-10-12 05:30 | XMS_ITS ---
Author Organization [facility] Address [address] [place] [address] Care Team Providers Care Director Plans Name Role Phone Corry Perez MD Primary Care Provider Unavaila Aravind Feliz [phone] Simeon Calvo MD Unavailable Unavailable REASON FOR VISIT screening Encounters Encounter Location Date Provider Diagnosis [facility] [place] [address] [place], [place] [phone] 10/12/2023 Aravind Schwartz Plan Of Treatment No Information Progress Notes * PALMA BERGMAN ADOB: 4 (49 yo F)Acc No.[id number]:10/12/2023 COLON WITH MAC Patient: PALMA WALLER Provider: Meli Schwartz MD :1975 A ge:48 Y S ex:Female Date:10/12/2023 Address:[address] [place] [address] [facility] Pcp:Corry Perez MD Subjective: * Chief Complaints: [...] 10/12/2023 Generated for Printi ng/Faxing/eTransmitting on: 1 06:05 AM EDT
--- OUTSIDE RECORDS SUMMARY | 2024-01-30 03:30 | XMS_ITS ---
Author Organization [facility] Address [address] [place] [address] Care Team Providers Care Typists Supervisor Name Role Phone Corry Perez MD Primary Care Provider Unavaila Aravind Feliz Unavailable [phone] Simeon Calvo MD Unavailable Unavailable REASON FOR VISIT screening Problems Problem Type SNOMED Code ICD Code Onset Dates Problem Status W/U Status Risk Notes Problem Diverticular disease of colon (267350649) Diverticulosis of large intestine without perforation or abscess without bleeding (K57.30) Active confirmed Encounters Encounter Location Date Provider Diagnosis [facility] [place] [address] [place] [phone] 01/30/2024 Aravind Schwartz Colon cancer scree abdon [...] PALMA BERGMAN ADOB: [birth year] (49 yo F)Acc No.[id number]:01/30/2024 COLON WITH MAC Patient: PALMA WALLER Provider: Meli Schwartz MD :1975 A ge:48 Y S ex:Female Date:01/30/2024 Address:[address] [place] [address] Pcp:Corry Perez MD Subjective: * Chief Complaints: * 1 . Screening. * Medical History: Objective: * Vitals: Assessment: * Assessment: 1. C olon cancer screening - Z12.11 (Primary) 2 . F amily history of colon cancer - Z80.0 3 . F H: colon polyps - Z83.719 4 . D iverticulosis of large intestine without perforation or abscess without bleeding - K57.30 5 . O ther hemorrhoids - K64.8 Plan: * Treatment: * Procedure Codes: 4 5378 DIAGNOSTIC COLONOSCOPY, Modifiers: 33 * * The named appointment provid er may or may not be the originator of this progress note, and it is not deemed complete until electronically signed by the appointment provider. Sign off status: Pending * Provider: Meli Schwartz MD Date: 1 04/01/2023 Generated for David eve/Torri/Dkitting on: 06:05 AM EDT
--- OUTSIDE RECORDS SUMMARY | 2024-12-11 06:05 | XMS_ITS | Clinical Summary ---
Author Organization [facility] Address [address] [place] [address] Care Team Providers Care Diabetes Physician Name Role Phone Pcp, No Primary Care [...] [facility] [place] [id number] Care Teams Diabetes Physician Relationship Specialty Start Date End Date Pcp, No PCP - General General Medicine 11/09/22
--- OUTSIDE RECORDS SUMMARY | 2024-12-11 06:05 | XMS_ITS | Patient Health Record ---
Author Organization [facility] Address [address] [place] [phone] Care Team Providers Care Banking Attorney Name Role Phone Corry Perez MD Primary Care Provider Unavaila Aravind Feliz Unavailable [phone] Simeon Calvo MD Unavailable Unavailable Allergies Allergen [...] Status Risk Notes Problem Colon cancer screening (944839929) Colon cancer screening (Z12.11) Active confirmed Problem Diverticular disease of colon (421543126) Diverticulosis of large intestine without perforation or abscess without bleeding (K57.30) Active confirmed Problem Irritable bowel syndrome with diarrhea (556364469) Irritable bowel syndrome with diarrhea (K58.0) Active confirmed Problem Heartburn (04169708) Heartburn (R12) Active confirmed Problem Gastroesophageal reflux disease without esophagitis (787226713) Gastroesophageal reflux disease without esophagitis (K21.9) Active confirmed Problem Elevated liver enzymes level (967877043) Elevated liver enzymes (R74.8) Active confirmed Problem Fatty liver (116627376) Fatty liver (K76.0) Active confirmed Problem Gastroesophageal reflux disease (307160091) Gastroesophageal reflux disease, esophagitis presence not specified (K21.9) Active confirmed Problem Gastritis (0346176) Gastritis (K29.70) Active c onfirmed Encounters Encounter Location Date Provider Diagnosis [facility] [place] [address] [place] [id number] 01/30/2024 Aravind Schwartz Colon cancer screeni ng Z12.11 ; Family history of colon cancer Z80.0 ; FH: colon polyps Z83.719 ; Diverticulosis of large intestine without perforation or abscess without bleeding K57.30 and Other hemorrhoids K64.8 [facility] [address] [place] [phone] 12/29/2023 Aravind Schwartz Assessments Encounter Date Diagnosis [...] Coverage Start Date Coverage End Date [facility] [address] [place], [place] [phone] [id number] 01 PALMA BERGMAN Self - patient is [...] Shah's, no celiac disease Migraines Insomnia Denies MA,DM,CVA,Lung disease,renal dise ase Depression IBS with Diarrhea--could [...] x2 Gastric sleeve surgery- 8--Dr. Calvo at [facility]--started at 256# and is now 190# as of 01/25/18, 176# in 03/2019; but 207# in 09/2021 OV Gastric bypass 03/2022
[2024-12-11 10:01] LABS: Appearance Urine Clear; Glucose Urine UA Negative (Negative); PH 5.5 (5.0-9.0); Specific Gravity - Urine >= 1.030 (1.005-1.025); UMIC TRIGGER UA YES
[2024-12-11 10:03] LABS: MANUAL DIFF FLAG NO
[2024-12-11 10:05] LABS: Hematocrit 36.1 % (37.0-47.0); Hemoglobin 11.1 g/dl (12.0-16.0); Imm Gran Abs Auto 0.02 X10*3/uL (0.00-0.03); Imm Gran Pct Auto 0.3 % (0.0-0.4); Lymphocytes Absolute Auto 2.8 X10*3/uL (1.2-4.9); Mean Corpuscular HGB Conc 30.7 g/dl (31.0-35.0); Mean Corpuscular Hemoglobin 29.8 pg (27.0-33.0); Mean Corpuscular Volume 97.0 fL (80.0-98.0); NRBC Abs Auto 0.000 X10*3/uL (0.0-0.012); NRBC Pct Auto 0.0 /100WBC (0.0-0.2); Platelet Count 421 X10*3/uL (160-400); Red Blood Count 3.72 X10*6/uL (4.20-5.50); White Blood Count 6.6 X10*3/uL (4.8-10.8)
[2024-12-11 10:26] LABS: Alanine Aminotransferase 17 U/L (0-31); Albumin Level 4.3 g/dL (3.5-5.0); Alkaline Phosphatase 133 U/L (39-117); Anion Gap 13 (12-20); Aspartate Amino Transferase 25 U/L (5-31); Blood Urea Nitrogen 14 mg/dL (9-16); Calcium 9.2 mg/dL (8.4-10.2); Carbon Dioxide 28 mmol/L (22-29); Chloride 107 mmol/L (96-108); Cholesterol 189 mg/dL (<200); Estimated Glomerular Filt Rate > 60; HDL Cholesterol 54 mg/dL (>40); Potassium 4.6 mmol/L (3.3-5.1); Sodium 143 mmol/L (135-145); Total Protein 7.5 g/dL (6.5-8.0); Triglycerides 200 mg/dL (<150)
[2024-12-11 10:52] LABS: Folate 4.6 ng/mL (> or = 4.0); Vitamin B12 175 pg/mL (200-900)
== END 2024-12-11 06:03 | disposition home or self-care (01) ==
LOC: HO.HMGCLDS 06:02
PROVIDERS: PCP Internal Medicine; Visit Provider Internal Medicine
DX: I10 Essential (primary) hypertension (principal); R81 Glycosuria; E03.9 Hypothyroidism, unspecified; E55.9 Vitamin D deficiency, unspecified; N39.0 Urinary tract infection, site not specified; Z13.1 Encounter for screening for diabetes mellitus; E66.3 Overweight
CPT/HCPCS: 36415; 80053; 80061; 81001; 82306; 82607; 82746; 83036; 84443; 84481; 85025; 87086

== ENCOUNTER 2025-01-17 15:21 | Outpatient (AMB) | payer BC, SELFPAY ==
[2025-01-17 15:23] VITALS: BP 144/86; PULSE 96; TEMP 36.7; O2SAT 97; BMI 37.3
--- NOTE | 2025-01-17 15:23 | MHC.OFFWIV ---
Intake Vital Signs 01/17/25 15:23 Height 5 ft 2 in Weight 204 lb BMI 37.3 BP 144/86 H Blood Pressure Location Lt brachial Position Sitting Pulse 96 Pulse Source Pulse Oximeter Temp 98.1 F Temp Source Oral Pulse Oximetry (%) 97 Oxygen Delivery Method Room Air Intake Visit Reasons: EP sore throat, headache, body ache Intake Note: pt presents with sore throat, headaches and body aches about a week Patient Tobacco Use Status: Never used Tobacco Allergies oxycodone (From PERCOCET) Allergy (Unknown, Verified 01/17/25 15:30) ITCHING Medication List - Last Reconciled 01/17/25 by Jackelyn Mason NP acetaminophen 650 mg PO Q6H PRN amoxicillin 500 mg PO BID 5 days gabapentin 900 mg PO BEDTIME gabapentin 600 mg PO DAILY levothyroxine 150 mcg PO DAILY@0600 lisinopril 10 mg PO DAILY loperamide (Imodium A-D) 2 mg PO QID PRN melatonin 10 mg PO BEDTIME omeprazole 40 mg PO DAILY PRN pyridoxine (vitamin B6) (Vitamin B-6) 100 mg PO DAILY sertraline 100 mg PO BEDTIME Do you need a note to return to daycare/school/sports/work: Yes HPI HPI Comments History of Present Illness Details 49 y/o female presents to the walk-in clinic with complaints of URI symptoms for 1 week, noting worsening over the past 2 days. She reports sore throat, headaches, fatigue, nausea, sinus pressure/congestion, and generalized body aches. She endorses recent exposure to a sick contact at work who tested positive for COVID. She has been using OTC remedies with minimal relief. Denies shortness of breath, chest pain, vomiting, or diarrhea. [facility] Medical History (Updated 01/17/25 @ 17:04 by Jackelyn Mason NP) Acute pharyngitis Ureteropelvic junction calculus Tremor Fatty liver Heart murmur History of shingles Hypothyroid Hx of mammogram Normal pelvic exam DJD (degenerative joint disease), lumbar GERD (gastroesophageal reflux disease) Overweight Insomnia IBS (irritable bowel syndrome) Anxiety Depression Epidermal cyst Surgical History Hx of cystoscopy H/O gastric bypass History of esophagogastroduodenoscopy (EGD) Hx of colonoscopy Gastric bypass status for obesity History of hysterectomy History of cholecystectomy Family History Paternal Grandfather History of colon cancer Maternal Grandmother History of breast cancer Mental health disorder Family/Other History of breast cancer Sister Substance use disorder Mental health disorder Maternal Aunt Substance use disorder Maternal Uncle Substance use disorder Paternal Uncle Substance use disorder Maternal Uncle Substance use disorder Mother Mental health disorder Brother Mental health disorder Social History Household Members: Spouse Housing: Apartment Housing Other:: , 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, 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 Are you a primary primary care nurse practitioner to a significant other at home: No Do you presently have visiting nurse or other home services: No Alcohol intake: never Patient Tobacco Use Status: Never used Tobacco e-Cigarette/Vaping Use: Never Used service: No Current occupational status: employed Cognitive needs: No Hearing needs: No Vision needs: No Review of Systems Const All systems reviewed & are unremarkable except as noted in HPI and below Physical Exam Vital Signs: Last Vital Signs Temp 98.1 F 01/17/25 15:23 Pulse 96 01/17/25 15:23 BP 144/86 H 01/17/25 15:23 Pulse Ox 97 01/17/25 15:23 Oxygen Delivery Method Room Air 01/17/25 15:23 BMI result Body Mass Index 37.3 Const General: no acute distress; No comfortable Nutritional Appearance: obese Orientation/consciousness: patient oriented x3 HEENT Head: Yes normocephalic Ears: external ears normal and TM abnormal bulging bilateral and with fluid behind the TM bilateral General nose exam: Abnormal mucous membranes and turbinates present boggy and erythematous and Nasal discharge present Face and sinus: Yes sinuses nontender Mouth: moist mucous membranes Throat: Yes uvula midline Resp Effort & Inspection: normal respiratory effort, able to speak in complete sentences, no audible wheezes and no cough Auscultation: clear to auscultation bilaterally, no crackles, no rales, no rhonchi and no wheezes Cardio Heart sounds: S1 normal heart sound present and S2 normal heart sound present Neuro General: patient oriented x3, gait normal and moves all extremities Results AMB Rapid Strep AMB Rapid Strep Negative Last Edit by Karie Damon CMA on 01/17/25 16:35 Results Reviewed Results Reviewed: Laboratory Last Values Strep Scn Rapid Clinic Negative 01/17/25 16:33 Assessment & Plan Assessment & Plan (1) Acute pharyngitis: Code(s): J02.9 - Acute pharyngitis, unspecified Qualifiers: Pharyngitis/tonsillitis etiology: unspecified etiology Qualified Code(s): J02.9 - Acute pharyngitis, unspecified Plan: Rapid Strep Negative today. Ordered SARs. Acute Upper Respiratory Infection ? likely viral etiology; symptom duration and exposure raise concern for COVID-19. OTC options: acetaminophen/ibuprofen for fever or body aches; intranasal saline rinse; OTC antihistamines or intranasal corticosteroid. Ordered Amoxicillin 500 mg BID for 5 days. Continue supportive care: hydration, warm fluids, rest. Discussed red flags: high fever, worsening shortness of breath, chest pain, persistent vomiting?seek immediate care. Orders: Orders SARS-CoV2/FLU/RSV Today R09.89 - Other specified symptoms and signs involving the circulatory and respiratory systems AMB Rapid Strep Screen Today Z13.9 - Encounter for screening, unspecified Medications: New amoxicillin 500 mg PO BID 10 caps 0RF 5 days J02.9 - Acute pharyngitis, unspecified Coding Level of Care Code Est Pt Level 4 (33947) Diagnoses Acute pharyngitis, unspecified etiology J02.9 Pharyngitis/tonsillitis etiology: unspecified etiology Time Spent (min) 20
--- OUTSIDE RECORDS SUMMARY | 2025-01-17 21:33 | XMS_ITS | Clinical Summary ---
Author Organization [facility] Address [address] [place] [address] Care Team Providers Care Instructor Of Nursing Name Role Phone Pcp, No Primary Care [...] (1 - 1-dose 75+ series) 2048 Insurance [facility] [id number] Care Teams Instructor Of Nursing Relationship Specialty Start Date End Date Pcp, No PCP - General General Medicine 11/09/22
== END 2025-01-17 16:49 | disposition home or self-care (01) ==
PROVIDERS: PCP Internal Medicine; Visit Provider Nurse Practitioner Family
DX: J02.9 Acute pharyngitis, unspecified (principal); Z13.9 Encounter for screening, unspecified

== ENCOUNTER 2025-01-17 15:21 | Outpatient (REF) | payer BC, SELFPAY ==
--- OUTSIDE RECORDS SUMMARY | 2023-10-12 04:30 | XMS_ITS ---
Author Organization [facility] Address [address] [place] [address] Care Team Providers Care Sheet Rock Finisher Name Role Phone Corry Perez MD Primary Care Provider Unavaila Aravind Feliz [phone] Simeon Calvo MD Unavailable Unavailable REASON FOR VISIT screening Encounters Encounter Location Date Provider Diagnosis [facility] [place] [address] [place] [id number] 10/12/2023 Aravind Schwartz Plan Of Treatment No Information Progress Notes * PALMA BERGMAN ADOB: 4 (49 yo F)Acc No.[id number]:10/12/2023 COLON WITH MAC Patient: PALMA WALLER Provider: Meli Schwartz MD :1975 A ge:48 Y S ex:Female Date:10/12/2023 Address:[address] [place] [address], [facility] Pcp:Corry Perez MD Subjective: * Chief Complaints: * S creening * The named appointment provid er may or may not be the originator of this progress note, and it is not deemed complete until electronically signed by the appointment provider. Sign off status: Pending * Provider: Meli Schwartz MD Date: 0 10/12/2023 Generated for David vee/Torri/eTransmitting on: 1 03/20/2024 10:12 PM EST
--- OUTSIDE RECORDS SUMMARY | 2024-01-30 02:30 | XMS_ITS ---
Author Organization [facility] Address [address] [place] [address] Care Team Providers Care Floor Tech Name Role Phone Corry Perez MD Primary Care Provider Unavaila Aravind Feliz Unavailable [phone] Simeon Calvo MD Unavailable Unavailable REASON FOR VISIT screening Problems Problem Type SNOMED Code ICD Code Onset Dates Problem Status W/U Status Risk Notes Problem Diverticular disease of colon (499362183) Diverticulosis of large intestine without perforation or abscess without bleeding (K57.30) Active confirmed Encounters Encounter Location Date Provider Diagnosis [facility] [place] [address] [place] [phone] 01/30/2024 Aravind Schwartz Colon cancer scree abdon [...] PALMA BERGMAN ADOB: 4 (49 yo F)Acc No.[id number]:01/30/2024 COLON WITH MAC Patient: PALMA WALLER Provider: Meli Schwartz MD :1975 A ge:48 Y S ex:Female Date:01/30/2024 Address:[address] [place] [address] Pcp:Corry Perez MD Subjective: * Chief Complaints: [...] Modifiers: 33 Billing Information: * Procedure Codes: 45708 DIAGNOSTIC COLONOSCOPY. Modifiers: 33 * The named appointment provid er may or may not be the originator of this progress note, and it is not deemed complete until electronically signed by the appointment provider. Sign off status: Pending * Provider: Meli Schwartz MD Date: 04/01/2023 Generated for David vee/Torri/Dkitting on: 03/20/2024 10:11 PM EST
--- OUTSIDE RECORDS SUMMARY | 2025-01-17 22:12 | XMS_ITS | Patient Health Record ---
Author Organization [facility] Address [address] [place] [address] Care Team Providers Care Postal Sorting Officer Name Role Phone Corry Perez MD Primary Care Provider Unavaila Aravind Feliz Unavailable [phone] Simeon Calvo MD Unavailable Unavailable Allergies Allergen (clinical drug ingredient) Drug/Non Drug Allergy documented on EMR Reaction Allergy Type Onset Date Status acetaminophen / oxycodone Percocet Unknown Drug Allergy Active Reason For Referral No Information Medications Medication SIG (Take, Route, Frequency, Duration) Notes Start Date End Date Status Omeprazole 40 MG Capsule Delayed Release 1 Orally Once a day; Duration: 30 days as needed Active Zoloft 100 mg 1 tab Oral qd Ac tive Imodium A-D 2 MG Tablet 1 tablet as needed Orally Four times a day/prn Active Synthroid 137 MCG Tablet 1 tablet on an empty stomach in the morning Orally Once a day Active Gabapentin 800 MG Tablet 1 tablet Orally Once a day; Duration: 30 day(s) 900 mg a day Active Pepcid 40 MG Tablet 1 Orally at 1 PM and 6PM; Duration: 30 day(s) 10/03/2019 Not-Taking/PRN Immunizations Vaccine Route Administration Date Status Comme nts Influenza Unknown 11/21/2017 Administered Influenza Unknown 02/14/2019 Administered Influenza Unknown 12/16/2019 Administered Influenza Unknown 12/30/2020 Administered Influenza Unknown 12/07/2022 Administered Social History Social History Drugs/Alcohol: Social Info Question Answer Notes Alcohol Screen Did you have a drink containing alcohol in the past year? 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 Caffeine: Not daily Section Notes: Nonsmoker; no sig alcohol Nonsmoker; [...] Status Risk Notes Problem Colon cancer screening (125485389) Colon cancer screening (Z12.11) Active confirmed Problem Diverticular disease of colon (336545599) Diverticulosis of large intestine without perforation or abscess without bleeding (K57.30) Active confirmed Problem Irritable bowel syndrome with diarrhea (242413152) Irritable bowel syndrome with diarrhea (K58.0) Active confirmed Problem Heartburn (97277794) Heartburn (R12) Active confirmed Problem Gastroesophageal reflux disease without esophagitis (809803593) Gastroesophageal reflux disease without esophagitis (K21.9) Active confirmed Problem Elevated liver enzymes level (720473245) Elevated liver enzymes (R74.8) Active confirmed Problem Fatty liver (027222407) Fatty liver (K76.0) Active confirmed Problem Gastroesophageal reflux disease (868343004) Gastroesophageal reflux disease, esophagitis presence not specified (K21.9) Active confirmed Problem Gastritis (4157377) Gastritis (K29.70) Active c onfirmed Encounters Encounter Location Date Provider Diagnosis [facility] [place] [address] [place] [phone] 01/30/2024 Aravidn Schwartz Colon cancer bettye abdon Z12.11 ; Family history of colon [...] Insured Coverage Start Date Coverage End Date [facility] [address] [place], [place] [id number] 01 PACHECOPALMA Self - patient is the insured Medical [...] Shah's, no celiac disease Migraines Insomnia Denies MD,DM,CVA,Lung disease,renal dise ase Depression IBS with Diarrhea--could [...] CCY for acalculous cholecystitis by Dr. Arias BTL with a reversal Right foot surgery x2 Gastric sleeve surgery- 8--Dr. Calvo at [facility]--started at 256# and is now 190# as of 01/25/18, 176# in 03/2019; but 207# in 09/2021 OV Gastric bypass 03/2022
[2025-01-18 11:15] LABS: Resp Syncy Virus RNA Qual PCR NEGATIVE (Negative); SARS COV2 PCR INHOUSE NEGATIVE (Negative)
== END 2025-01-17 15:22 | disposition home or self-care (01) ==
LOC: HO.LNP 15:21
PROVIDERS: PCP Internal Medicine; Visit Provider Nurse Practitioner Family
DX: J02.9 Acute pharyngitis, unspecified (principal); R09.89 Other specified symptoms and signs involving the circulatory and respiratory systems
CPT/HCPCS: 87637; 87880

== ENCOUNTER 2025-01-18 09:21 | Outpatient (AMB) | payer BC, SELFPAY ==
[2025-01-18 09:26] VITALS: BP 136/94; PULSE 95; RESP 18; TEMP 37.1; O2SAT 98; BMI 37.3
--- NOTE | 2025-01-18 09:26 | A.OFFPC_ITS ---
Vital Signs 01/18/25 09:26 Height 5 ft 2 in Weight 204 lb BMI 37.3 BP 136/94 H Blood Pressure Location Lt brachial Position Sitting Respiration 18 Pulse 95 Pulse Source Pulse Oximeter Temp 98.7 F Temp Source Oral Pulse Oximetry (%) 98 Oxygen Delivery Method Room Air Intake Visit Reasons: 1 mo follow up Intake Note: Pt is here today for 1 month follow up visit. Allergies oxycodone (From PERCOCET) Allergy (Unknown, Verified 01/18/25 09:27) ITCHING Medication List - Last Reconciled 01/18/25 by Corry Perez MD acetaminophen 650 mg PO Q6H PRN amoxicillin 500 mg PO BID 5 days cyanocobalamin (vitamin B-12) 1,000 mcg PO DAILY gabapentin 900 mg PO BEDTIME gabapentin 600 mg PO DAILY levothyroxine 150 mcg PO DAILY@0600 lisinopril 10 mg PO DAILY loperamide (Imodium A-D) 2 mg PO QID PRN melatonin 10 mg PO BEDTIME omeprazole 40 mg PO DAILY PRN pyridoxine (vitamin B6) (Vitamin B-6) 100 mg PO DAILY sertraline 100 mg PO BEDTIME Tobacco use date assessed: 11/30/24 Dental Screening Dental Screen Date: 04/26/24 HPI 1 mo follow up HPI Details PATIENT PRESENTS FOR THE FOLLOW-UP ON HYPERTENSION HYPOTHYROIDISM CHRONIC ANXIETY. She complains of 5 days of sore throat body aches sinus congestion. Patient was seen in walk and yesterday had negative strep and the vitals swab is still pending. Patient was prescribed amoxicillin 500 mg twice a day. [facility] Medical History (Updated 01/18/25 @ 09:56 by Corry Perez MD) Acute pharyngitis Ureteropelvic junction calculus Tremor Fatty liver Heart murmur History of shingles Hypothyroid Hx of mammogram Normal pelvic exam DJD (degenerative joint disease), lumbar GERD (gastroesophageal reflux disease) Overweight Insomnia IBS (irritable bowel syndrome) Anxiety Depression Epidermal cyst Surgical History Hx of cystoscopy H/O gastric bypass History of esophagogastroduodenoscopy (EGD) Hx of colonoscopy Gastric bypass status for obesity History of hysterectomy History of cholecystectomy Family History Paternal Grandfather History of colon cancer Maternal Grandmother History of breast cancer Mental health disorder Family/Other History of breast cancer Sister Substance use disorder Mental health disorder Maternal Aunt Substance use disorder Maternal Uncle Substance use disorder Paternal Uncle Substance use disorder Maternal Uncle Substance use disorder Mother Mental health disorder Brother Mental health disorder Social History Household Members: Spouse Housing: Apartment Housing Other:: , 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, 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 Are you a primary managed care director to a significant other at home: No Do you presently have visiting nurse or other home services: No Alcohol intake: never Patient Tobacco Use Status: Never used Tobacco e-Cigarette/Vaping Use: Never Used service: No Current occupational status: employed Cognitive needs: No Hearing needs: No Vision needs: No Questionnaire Thrive Questionnaire Date Thrive assessed: 04/26/24 I am a: Patient What is your living situation today?: I have a steady place to live Within the past 12 months, did the food you bought not last and you didn't have the money to get more?: Never true Within the past 12 months, did you worry whether your food would run out before you got money to buy more?: Never true Do you have trouble paying for medicines?: No Do you have trouble getting transportation to medical appointments?: No Do you have trouble paying your heating and electricity bill?: No Do you have trouble taking care of your child, family member or friend?: No Do you have trouble with day-to-day activities such as bathing, preparing meals, shopping, managing finances, etc.?: No Are you currently unemployed and looking for a job?: No Are you interested in more education?: No Please select the resources that you would like help with: None Currently or been in a relationship where the following occur: No concerns reported THRIVE Score: 0 DANIELLE-7 AMB Questionnaire DANIELLE-7 Date DANIELLE - 7 assessed: 04/26/24 Source: Developed by Drs. Aravind Ding, Yokasta Valdez, Denzel Rivera and colleagues, with an educational og from [employer] Review of Systems Const All systems reviewed & are unremarkable except as noted in HPI and below Eyes Reports no additional complaints ENT Reports no additional complaints Card Reports no additional complaints Resp Reports no additional complaints GI Reports no additional complaints Reports no additional complaints Physical exam (Primary Care) Vital Signs: Last Vital Signs Temp 98.7 F 01/18/25 09:26 Pulse 95 01/18/25 09:26 Resp 18 01/18/25 09:26 BP 136/94 H 01/18/25 09:26 Pulse Ox 98 01/18/25 09:26 Oxygen Delivery Method Room Air 01/18/25 09:26 BMI result Body Mass Index 37.3 Tobacco/Smoking Status: Tobacco use Status Tobacco use date assessed 11/30/24 01/18/25 09:27 Patient Tobacco Use Status Never used Tobacco 01/18/25 09:27 e-Cigarette/Vaping Use Never Used 01/18/25 09:27 Thrive Assessment: Date of Thrive Assessment Date Thrive assessed 04/26/24 01/18/25 09:27 Currently or been in a relationship where the following occur: No concerns reported Const General: no acute distress HENMT Head: Yes normal to inspection Neck Neck: Yes supple Resp Effort & Inspection: normal respiratory effort Auscultation: clear to auscultation bilaterally Cardio Rhythm: regular rhythm Heart sounds: S1 normal heart sound present and S2 normal heart sound present GI Inspection: Yes normal to inspection Coding Level of Care Code Est Pt Level 4 (67983) Diagnoses Vitamin D deficiency E55.9 HTN (hypertension) I10 Hypothyroid E03.9 Vitamin B12 deficiency E53.8 URI (upper respiratory infection) J06.9 Assessment & Plan Assessment & Plan (1) Vitamin D deficiency: Code(s): E55.9 - Vitamin D deficiency, unspecified Category: Medical Plan: Patient will continue vitamin-D supplement check the level in 6 weeks (2) HTN (hypertension): Code(s): I10 - Essential (primary) hypertension Category: Medical Plan: Increase lisinopril to 20 mg a day, BMP will be checked in 2 weeks patient follow-up in 1 month (3) Hypothyroid: Comment: f/u Dr Cabezas Code(s): E03.9 - Hypothyroidism, unspecified Category: Medical Plan: Continue levothyroxine (4) Vitamin B12 deficiency: Code(s): E53.8 - Deficiency of other specified B group vitamins Category: Medical Plan: Start vitamin B12 supplement 1000 mcg and check the level in 6 weeks (5) URI (upper respiratory infection): Code(s): J06.9 - Acute upper respiratory infection, unspecified Category: Medical Plan: Supportive care discussed with the patient Orders: Orders Vitamin D 25-OH Total 6 Weeks E53.8 - Deficiency of other specified B group vitamins, E55.9 - Vitamin D deficiency, unspecified Vitamin B12 and Folate 6 Weeks E53.8 - Deficiency of other specified B group vitamins, E55.9 - Vitamin D deficiency, unspecified Medications: New cyanocobalamin (vitamin B-12) 1,000 mcg PO DAILY 90 tabs 1RF Changed From lisinopril 10 mg PO DAILY 90 tabs 0RF To lisinopril 20 mg (2 x 10 mg) PO DAILY 90 tabs 0RF
== END 2025-01-18 09:52 | disposition home or self-care (01) ==
LOC: HO.HMCC 09:22
PROVIDERS: PCP Internal Medicine; Visit Provider Internal Medicine
DX: E55.9 Vitamin D deficiency, unspecified (principal); I10 Essential (primary) hypertension; E03.9 Hypothyroidism, unspecified; E53.8 Deficiency of other specified B group vitamins; J06.9 Acute upper respiratory infection, unspecified

== ENCOUNTER 2025-02-06 09:56 | Outpatient (AMB) | payer BC, SELFPAY ==
--- OUTSIDE RECORDS SUMMARY | 2023-10-12 04:30 | XMS_ITS ---
Author Organization [facility] Address [address] [place] [address] Care Team Providers Care Solid Waste Facility Operator Name Role Phone Corry Perez MD Primary Care Provider Unavaila Aravind Feliz [phone] Simeon Calvo MD Unavailable Unavailable REASON FOR VISIT screening Encounters Encounter Location Date Provider Diagnosis [facility] [place] [address] [place] [phone] 10/12/2023 Aravind Schwartz Plan Of Treatment No Information Progress Notes * PALMA BERGMAN ADOB: 4 (49 yo F)Acc No.[id number]:10/12/2023 COLON WITH MAC Patient: PALMA WALLER Provider: Meli Schwartz MD :1975 A ge:48 Y S ex:Female Date:10/12/2023 Address:[address] [place] [address], [facility] Pcp:Corry Perez MD Subjective: * Chief Complaints: * S creening * The named appointment provid er may or may not be the originator of this progress note, and it is not deemed complete until electronically signed by the appointment provider. Sign off status: Pending * Provider: Meli Schwartz MD Date: 0 10/12/2023 Generated for Richyi ng/Fahermesg/eTransmitting on: 1 04/09/2024 10:07 AM EST
--- OUTSIDE RECORDS SUMMARY | 2024-01-30 02:30 | XMS_ITS ---
Author Organization [facility] Address [address] [place] [address] Care Team Providers Care Delinquent Tax Collection Assistant Name Role Phone Corry Perez MD Primary Care Provider Unavaila Aravind Feliz Unavailable [phone] Simeon Calvo MD Unavailable Unavailable REASON FOR VISIT screening Problems Problem Type SNOMED Code ICD Code Onset Dates Problem Status W/U Status Risk Notes Problem Diverticular disease of colon (936546692) Diverticulosis of large intestine without perforation or abscess without bleeding (K57.30) Active confirmed Encounters Encounter Location Date Provider Diagnosis [facility] [place] Out[place] [address] [place] [phone] 01/30/2024 Aravind Schwartz Colon cancer scree abdon Z12.11 ; Family history of colon cancer Z80.0 ; FH: colon polyps Z83.719 ; Diverticulosis of large intestine without perforation or abscess without bleeding K57.30 and Other hemorrhoids K64.8 Assessments Encounter Date Diagnosis (ICD Code) Assessment Notes Treatment Notes Treatment Clinical Notes Section Notes 01/30/2024 Colon cancer screening (ICD-10 - Z12.11) 01/30/2024 Family history of colon cancer (ICD-10 - Z80.0) 01/30/2024 FH: colon polyps (ICD-10 - Z83.719) 01/30/2024 Diverticulosis of large intestine without perforation or abscess without bleeding (ICD-10 - K57.30) 01/30/2024 Other hemorrhoids (ICD-10 - K64.8) Plan Of Treatment No Information Progress Notes * PALMA BERGMAN ADOB: [birth year] (49 yo F)Acc No.[id number]:01/30/2024 COLON WITH MAC Patient: PALMA WALLER Provider: Meli Schwartz MD :1975 A ge:48 Y S ex:Female Date:01/30/2024 Address:[address] [place] [address] Pcp:Corry Perez MD Subjective: * Chief Complaints: * S creening Assessment: * Assessment: 1. C olon cancer screening - Z12.11 (Primary) 2 . F amily history of colon cancer - Z80.0 3 . F H: colon polyps - Z83.719 4 . D iverticulosis of large intestine without perforation or abscess without bleeding - K57.30 5 . O ther hemorrhoids - K64.8 Plan: * Procedure Codes: 4 5378 DIAGNOSTIC COLONOSCOPY, Modifiers: 33 Billing Information: * Procedure Codes: 62689 DIAGNOSTIC COLONOSCOPY. Modifiers: 33 * The named appointment provid er may or may not be the originator of this progress note, and it is not deemed complete until electronically signed by the appointment provider. Sign off status: Pending * Provider: Meli Schwartz MD Date: 04/01/2023 Generated for David vee/Torri/Dkitting on: 04/09/2024 10:07 AM EST
--- NOTE | 2025-02-06 10:03 | MHC.OFFVIS ---
Intake Visit Reasons: ESWL-US Follow Up(Set) Intake Note: Reason for Visit: Post Op ESWL Follow Up Urology Meds: Vitamin B6 Blood Thinners: None Labs: BUN: 14 Creatinine: 0.82 (12/11/2024) Imaging: Renal Ultrasound 11/23/2024 Last PVR: None Allergies oxycodone (From PERCOCET) Allergy (Unknown, Verified 01/18/25 09:27) ITCHING HPI Comments Details: Jessica is a pleasant female. She is a patient of Dr. Thornton. She is seen for the following urologic conditions - nephrolithiasis Follow-up from right ESWL with stent placement Ultrasound fragments 4-5 mm x 2 Discussed repeat ESWL versus ureteroscopy Based on consideration of risks and benefits would prefer ESWL Nephrolithiasis Seen through emergency department September 2024 13 mm right UPJ stone Intervention - September 2024 right ESWL [facility] Medical History (Updated 01/18/25 @ 09:56 by Corry Perez MD) Acute pharyngitis Ureteropelvic junction calculus Tremor Fatty liver Heart murmur History of shingles Hypothyroid Hx of mammogram Normal pelvic exam DJD (degenerative joint disease), lumbar GERD (gastroesophageal reflux disease) Overweight Insomnia IBS (irritable bowel syndrome) Anxiety Depression Epidermal cyst Surgical History Hx of cystoscopy H/O gastric bypass History of esophagogastroduodenoscopy (EGD) Hx of colonoscopy Gastric bypass status for obesity History of hysterectomy History of cholecystectomy Family History Paternal Grandfather History of colon cancer Maternal Grandmother History of breast cancer Mental health disorder Family/Other History of breast cancer Sister Substance use disorder Mental health disorder Maternal Aunt Substance use disorder Maternal Uncle Substance use disorder Paternal Uncle Substance use disorder Maternal Uncle Substance use disorder Mother Mental health disorder Brother Mental health disorder Social History Household Members: Spouse Housing: Apartment Housing Other:: , 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, 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 Are you a primary director of health care marketing to a significant other at home: No Do you presently have visiting nurse or other home services: No Alcohol intake: never Patient Tobacco Use Status: Never used Tobacco e-Cigarette/Vaping Use: Never Used service: No Current occupational status: employed Cognitive needs: No Hearing needs: No Vision needs: No Review of Systems Const Denies chills and Denies fever(s) Card Reports no additional complaints and Denies syncope Resp Denies cough GI Denies abdominal pain and Denies heartburn Reports as per HPI and Denies change in libido Neuro Denies syncope Psych Denies change in libido Endo Denies change in libido Physical Exam Const General: cooperative, healthy appearing, comfortable and no acute distress Orientation/consciousness: patient oriented x3 HEENT Face and sinus: Yes normal facial exam Mouth: moist mucous membranes Neck Neck: Yes normal visual inspection, Yes full ROM and Yes trachea midline Chest Chest palpation & inspection: normal inspection of the chest Resp Effort & Inspection: normal respiratory effort, able to speak in complete sentences and no respiratory distress GI Inspection: Yes normal to inspection Back/Spine/Pelvis Cervical Spine: normal cervical lordosis Thoracic/Lumbar Spine: thoracic and lumbar spine normal to inspection Skin General skin exam: no rashes or lesions noted Neuro General: patient oriented x3, gait normal, tone normal and moves all extremities Extrem General: Yes normal to inspection and Yes capillary refill normal Assessment & Plan Assessment & Plan (1) Ureteropelvic junction calculus: Comment: CT 09/15/2024 R lower renal 1.3 cm x 0.7 stone, s/p lithotripsy and ureteral stent placement 09/17/2024, Renal us 11/2024 1.2 cm right lower pole stone present Code(s): N20.1 - Calculus of ureter Category: Medical Plan Plan right ESWL Extracorporeal Shock Wave Lithotripsy We discussed the nature of the decision and reasonable alternatives for performing the above surgery. Interventions include chemical dissolution, ESWL, ureteroscopy with laser lithotripsy and stent placement, PCNL. Options such as medical therapy were discussed. The relative uncertainties and benefits related to each alternate procedure were adequately discussed. General surgical risks including, but not limited to, pain, bleeding, infection, myocardial infarction, pulmonary embolus, deep vein thrombosis and cerebrovascular accident which may result in further hospitalization were discussed. Full disclosure of the procedure as well as all major risks, benefits and complications were discussed including but not limited to risks of bleeding, injury to the kidney with hematoma or yo-hematoma, failure to fragments stone, potential for ureteric obstruction from stone passage and need for secondary procedures. There is a small long-term risk of hypertension and a question yeyo of diabetes. Success rate of fragmentation and passage is approximately 70- 75%. This is compared to the risks and benefits for ureteroscopy which has a higher success rate but is a more invasive procedure. The success rate of the procedure was discussed. Success of the procedure in the short-term does not necessarily guarantee that long-term success will be maintained. Suitable follow up will need to be maintained. The patient showed understanding of the discussion as well as the typical recovery time, and the outpatient nature of this procedure. Opportunity was given for questions. Repeat-back protocol used to confirm understanding. They wish to proceed with right ESWL Patient Instructions: This note is constructed using voice recognition software. While every effort has been made to ensure accuracy project leader errors may have been included. Imaging studies, laboratory and physical exam results were discussed and reviewed in detail. No major barriers to patient understanding were identified. An opportunity to ask questions regarding the treatment plan was provided. All questions were answered. The patient expressed understanding and agreement with the above treatment plan. The patient is aware they should contact our office by phone for worsening of their current condition or the appearance of new urologic symptoms. Compliance is encouraged with any medications and followup testing that is ordered. It is a privilege to participate in the urologic care of your patient. If you have any questions or concerns regarding treatment for the above conditions, or other urologic issues, please do not hesitate to contact me. The office telephone contact is [phone]. Sincerely, Dr Aamir Haywood MD, [facility] - Urology Compassionate Specialist Care for the Genitourinary System Coding Level of Care Code Est Pt Level 4 (74955) Diagnoses Ureteropelvic junction calculus N20.1
--- OUTSIDE RECORDS SUMMARY | 2025-02-06 10:07 | XMS_ITS | Clinical Summary ---
Author Organization [facility] Address [address] [place] [address] Care Team Providers Care Toucher Up Name Role Phone Pcp, No Primary Care [...] (1 - 1-dose 75+ series) 2048 Insurance [facility] [place] [id number] Care Teams Toucher Up Relationship Specialty Start Date End Date Pcp, No PCP - General General Medicine 11/09/22
--- OUTSIDE RECORDS SUMMARY | 2025-02-06 10:07 | XMS_ITS | Patient Health Record ---
Author Organization [facility] Address [address] [place] [address] Care Team Providers Care Nursing Home Administrator Name Role Phone CHARLA MONDRAGON MD Primary Care Provider UnavailTAMMY Romero Unavailable Allergies Allergen (clinical drug ingredient) Drug/Non Drug Allergy documented on EMR Reaction Allergy Type Onset Date Status acetaminophen / oxycodone Percocet hives Drug Allergy Active Reason For Referral No Information Medications Medication SIG (Take, Route, Frequency, Duration) Notes Start Date End Date Status Gabapentin 300 MG Capsule 1 capsule Orally three times a day Active Zoloft 100 MG Tablet 1 tab(s) orally once a day Active Multivitamin 1 TAB ONCE DAILY NAME ONLY Conversion from Multum Review and pick correct strength-formulatio n from [employer] options. If intended option is not shown, discontinue and re-order from Quick Search. Active Omeprazole 40 MG Capsule Delayed Release 1 cap(s) Orally three times a day Active Excedrin Extra Strength 4 MG TABLET 1 TAB(S) ORALLY EVERY 4-6 HOURS NAME ONLY Conversion from Multum Review and pick correct strength-formulatio n from [employer] options. If intended option is not shown, discontinue and re-order from Quick Search. Active Levothyroxine Sodium 125 MCG Tablet 1 tab(s) orally once a day Active Social History Tobacco Use: Social History Observation Description Date Details (start date - stop date) Never Smoker NA - NA Social History Tobacco Use: Social Info Question Answer Notes Smoking Are you a: never smoker Additional Details Category Social Info Options Details General Occupation: [employer] asbestos exposure: no Past year's travels: [place] 2021 alcohol use: no drug use: no Hobbies/Exercise habits: gym 1-2 x/week Coffee/Tea/Soda: yes 1 cup Coffee Marital Status Living with guardianship of foster child smokers in household no pt never sm [place] Problems Problem Type SNOMED Code ICD Code Onset Dates Problem Status W/U Status Risk Notes Problem Hypothyroidism (52362939) Hypothyroidism (acquired) (E03.9) Active confirmed Plan Of Treatment Future Test Test Name Order Date TSH WITH REFLEX TO FT4 10/21/2020 Insurance Providers Payer Name Payer Address Payer Phone Subscriber Number Group Number Insured Name Patient Relationship to Insured Coverage Start Date Coverage End Date [employer] [facility] [address] [place] [address] [id number] BALDEV BERGMAN Spouse - patient is the spouse of the insured 2016 Medical (General) History Medical History History ICD Code depression Hypertension migraine headache irritable bowel syndrome hypothyroidism - dx 1997 sleep apnea obesity, s/p gastric sleeve surgery Surgical History Surgery Date(Month/Year) Gastric sleeve 07/2017 plantar fasciitis heal spurs tubal ligation cholecystectomy hysterectomy, total 2011
--- OUTSIDE RECORDS SUMMARY | 2025-02-06 10:07 | XMS_ITS | Patient Health Record ---
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 Caffeine: Not daily Section Notes: Nonsmoker; no [...] Status Risk Notes Problem Colon cancer screening (498405747) Colon cancer screening (Z12.11) Active confirmed Problem Diverticular disease of colon (096745012) Diverticulosis of large intestine without perforation or abscess without bleeding (K57.30) Active confirmed Problem Irritable bowel syndrome with diarrhea (955837502) Irritable bowel syndrome with diarrhea (K58.0) Active confirmed Problem Heartburn (91086272) Heartburn (R12) Active confirmed Problem Gastroesophageal reflux disease without esophagitis (055514087) Gastroesophageal reflux disease without esophagitis (K21.9) Active confirmed Problem Elevated liver enzymes level (141047708) Elevated liver enzymes (R74.8) Active confirmed Problem Fatty liver (296792845) Fatty liver (K76.0) Active confirmed Problem Gastroesophageal reflux disease (423037088) Gastroesophageal reflux disease, esophagitis presence not specified (K21.9) Active confirmed Problem Gastritis (1664758) Gastritis (K29.70) Active c onfirmed Plan Of Treatment Pending Test Test Name [...] Insured Coverage Start Date Coverage End Date [facility] [address] [place], [place] [phone] [id number] PALMA BERGMAN Self - patient is [...] Shah's, no celiac disease Migraines Insomnia Denies CA,DM,CVA,Lung disease,renal dise ase Depression IBS with Diarrhea--could [...] x2 Gastric sleeve surgery- 8--Dr. Calvo at [facility]--started at 256# and is now 190# as of 01/25/18, 176# in 03/2019; but 207# in 09/2021 OV Gastric bypass 03/2022
== END 2025-02-06 10:39 | disposition home or self-care (01) ==
LOC: HO.HUSH 09:57
PROVIDERS: PCP Internal Medicine; Visit Provider Urology
DX: N20.1 Calculus of ureter (principal)
CPT/HCPCS: 99214